=== PATIENT | male | born 1960 | race Caucasian/White ===

== ENCOUNTER 2017-10-18 19:53 | Inpatient (IN) | payer OTHER, SELFPAY ==
[2017-10-18 20:20] LABS: #Basophils 0.1 thou/uL (0.0-0.2); #Eosinphils 0.2 thou/uL (0.0-0.7); #Lymphocytes 2.8 thou/uL (1.20-3.40); #Monocytes 1.1 thou/uL (0.11-0.59); %Basophils 0.7 % (0.0-1.0); %Eosinophils 1.7 % (0.0-10.0); %Lymphocytes 20.9 % (21.0-51.0); %Neutrophils 68.6 % (42.0-75.0); Hemoglobin 15.9 g/dL (14.0-18.0); Mean Corpuscular HGB CONC 34.3 g/dL (32.0-36.0); Mean Corpuscular Hemoglobin 30.2 pg (27.0-31.0); Mean Platelet Volume 6.9 fL (7.4-10.4); Platelet Count 385 thou/uL (130-400); RBC Distribution Width 12.2 % (11.5-14.5); Red Blood Cell (RBC) Count 5.28 mill/uL (4.70-6.10); White Blood Cell (WBC) Count 13.1 thou/uL (4.8-10.8)
[2017-10-18 20:28] LABS: PTT 27.8 SEC (22.9-36.1); Prothrombin Time 13.3 SEC (12.0-14.7)
--- NOTE | 2017-10-18 20:40 | CT ---
CT OF THE BRAIN WITHOUT CONTRAST: 10/18/17 COMPARISON: None. HISTORY: Slurred speech for two days that is worse today. TECHNIQUE: Multiple contiguous axial images were obtained in a CT of the brain without contrast. FINDINGS: There are hypodensities in the left basal ganglia and right periventricular white matter. Other scatt ered hypodensities are also seen in the subcortical periventricular white matter. These may be second christiano to small vessel ischemic disease with small lacunar infarctions are also a possibility. No large confluent infarct is seen. There is no evidence of hydrocephalus, intracranial hemorrhage, or extra-a xial fluid collections. The calvarium and overlying soft tissues are unremarkable. The visualized paranasal sinuses and masto id air cells are well aerated. IMPRESSION: 1. Small vessel ischemic disease. 2. There are hypodensities in the periventricular white matter and left basal ganglia without si gnificant volume loss which could represent subacute lacunar infarctions. POS: [facility]
[2017-10-18 20:42] LABS: ALT (SGPT) 17 U/L (8-55); AST (SGOT) 16 U/L (5-34); Albumin 4.3 g/dL (3.5-5.0); Alkaline Phosphatase 143 U/L (40-150); Anion Gap 12 mmol/L (10-20); BUN (Urea Nitrogen) 6 mg/dL (8.4-25.7); Bilirubin, Total 0.5 mg/dL (0.2-1.2); Calc. Creatinine Clearance 0 mL/min (70-130); Calcium 9.7 mg/dL (7.8-10.44); Carbon Dioxide 27 mmol/L (22-29); Chloride 103 mmol/L (98-107); Estimated GFR-MDRD Greater than 90; Globulin 3.1 g/dL (2.4-3.5); Glucose 157 mg/dL (70-105); Potassium 3.4 mmol/L (3.5-5.1); Protein, Total 7.4 g/dL (6.0-8.3); Sodium 139 mmol/L (136-145)
[2017-10-18 20:47] LABS: CKMB 1.2 ng/mL (0-6.6); Troponin I Less than 0.010 ng/mL (< 0.028)
[2017-10-18] MEDS ORDERED: Acetaminophen 325 MG TAB PO PRN (23:20)
[2017-10-18] MEDS ORDERED: Ondansetron HCl/PF 4 MG/2 ML Vial IVP PRN (23:20)
[2017-10-19 00:13] LABS: Troponin I Less than 0.010 ng/mL (< 0.028)
[2017-10-19 00:31] VITALS: BMI 23.5
[2017-10-19 03:10] LABS: #Basophils 0.1 thou/uL (0.0-0.2); #Eosinphils 0.3 thou/uL (0.0-0.7); #Lymphocytes 2.6 thou/uL (1.20-3.40); #Monocytes 1.2 thou/uL (0.11-0.59); #Neutrophils 11.1 thou/uL (1.40-6.50); %Basophils 0.6 % (0.0-1.0); %Eosinophils 1.8 % (0.0-10.0); %Lymphocytes 16.8 % (21.0-51.0); %Monocytes 7.9 % (0.0-10.0); Hemoglobin 14.4 g/dL (14.0-18.0); Mean Corpuscular HGB CONC 35.5 g/dL (32.0-36.0); Mean Corpuscular Hemoglobin 31.1 pg (27.0-31.0); Mean Corpuscular Volume 87.5 fL (78.0-98.0); Mean Platelet Volume 6.6 fL (7.4-10.4); Platelet Count 354 thou/uL (130-400); RBC Distribution Width 12.1 % (11.5-14.5); Red Blood Cell (RBC) Count 4.62 mill/uL (4.70-6.10); White Blood Cell (WBC) Count 15.2 thou/uL (4.8-10.8)
[2017-10-19 03:28] LABS: Troponin I Less than 0.010 ng/mL (< 0.028)
[2017-10-19 03:45] LABS: Anion Gap 14 mmol/L (10-20); BUN (Urea Nitrogen) 6 mg/dL (8.4-25.7); Calc. Creatinine Clearance 121 mL/min (70-130); Calcium 9.3 mg/dL (7.8-10.44); Carbon Dioxide 26 mmol/L (22-29); Cardiac Risk 8.5 (Less than 4.5); Chloride 104 mmol/L (98-107); Cholesterol 204 mg/dl (< 200 Desired); Estimated GFR-MDRD Greater than 90; Glucose 120 mg/dL (70-105); HDL Cholesterol 24 mg/dL (>60 Neg Risk); LDL Cholesterol, Calculated 131 mg/dL; Potassium 3.2 mmol/L (3.5-5.1); Sodium 141 mmol/L (136-145); Triglycerides 247 mg/dL (Less than 150)
[2017-10-19] MEDS ORDERED: Potassium Chloride 20 MEQ TAB PO SCH (08:45)
[2017-10-19 09:00] LABS: Hemoglobin A1c 6.1 % (4.0-6.0)
[2017-10-19] MEDS ORDERED: Enoxaparin Sodium 40 MG/0.4 ML SYRINGE SC SCH (09:00)
[2017-10-19] MEDS ORDERED: Aspirin 325 mg Enteric Coated Tablet PO SCH (09:00)
--- NOTE | 2017-10-19 09:21 | MRI ---
MRI BRAIN: History: Slurred speech, TIA. Technique: Multiplanar, multisequence noncontrast enhanced MRI images were obtained of the brain. FINDINGS: Images demonstrate a 1.9 x 0.9 cm area of increased signal on diffusion weighted sequences with a dec reased signal on ADC maps. This area also demonstrates area of increased signal on the T2 and FLAIR w eighted sequences. This is compatible with a moderate sized left posterior limb internal capsule area of stroke. A tiny second area of stroke also seen in the lateral posterior limb of the right interna l capsule. These two areas are acute. There is also old areas of stroke in the left deep white matter of the frontal lobe just lateral to t he body of the caudate seen on image 17. Additional old areas of stroke also seen in the deep right f rontal lobe white matter. The vascular distributions are multiple. I am concerned about possible central source for the numerou s infarctions which are acute and old. IMPRESSION: 1. Multiple acute and more chronic bilateral intracranial areas of infarction as described above. POS: [facility]
--- NOTE | 2017-10-19 10:23 | ULT ---
CAROTID DOPPLER ULTRASOUND EVALUATION: 10/19/2017 HISTORY: The patient has a history of TIAs and strokes. TECHNIQUE: Multiple longitudinal and transverse images of the carotid arteries were obtained using a Multi-Hertz linear array transducer. Real-time, color-flow, and spectral wave-form Doppler analysis was used to evaluate the carotid arteries. FINDINGS: There is diffuse intimal thickening seen in the right and left common carotid arteries. CCA flow malachi ocities are fairly symmetric. The peak systolic in the right CCA measures 136/24 cm per second and t he left CCA is 142/21 cm per second. There are distal bilateral carotid artery atherosclerotic plaques, mild on the right, approximately 2 0%, and moderate on the left, approximately 40% to 50%, in the distal left CCA. There appears to be some irregularity in the distal left CCA plaque. Correlation with CT angiography may be of use to fu rther characterize. Flow velocities have not significantly increased in the internal carotid arteries bilaterally. Antegrade flow is seen in both vertebral arteries. IMPRESSION: Mild right distal common carotid artery and moderate left distal common carotid artery stenosis due t o calcified and noncalcified atherosclerotic plaques. POS: [facility]
[2017-10-19] MEDS: Enoxaparin Sodium 40 MG/0.4 ML SYRINGE SC SCH (10:43)
[2017-10-19] MEDS ORDERED: Clopidogrel Bisulfate 75 MG TAB PO SCH (11:00)
--- NOTE | 2017-10-19 11:15 | RAD ---
PORTABLE CHSET ONE VIEW: 10/19/2017 9:56 a.m. HISTORY: Chest pain. FINDINGS: The heart size is normal. The aorta is tortuous. The lungs are expanded without focal areas of cons olidation, pneumothoraces, or pleural effusions. IMPRESSION: No radiographic evidence of acute cardiopulmonary process. POS: [facility]
--- NOTE | 2017-10-19 20:04 | HP ---
CHIEF COMPLAINT: Slurred speech. HISTORY OF PRESENT ILLNESS: Patient is a very pleasant 57-year-old male with a history of CVA in 201 5 and hypertension, who presented to the hospital with slurred speech. The patient stated that initi ally his slurred speech started on Tuesday; however, he did not do anything about it. When he was bel sushil to his daughter on the phone over the weekend, his daughter thought that patient's speech appear ed to be a bit more slurred, so he called the patient's sister who came by just to visit him. She di d notice that he had significant amount of slurring of his speech. At that time, patient was brought into the hospital for further evaluation. The patient currently denies any nausea, vomiting or diff iculty swallowing; however, he does have a significant slurring of the speech. He initially had a CT brain that was done in the ER which indicated a small vessel ischemic disease. There are hypodensit ies in the periventricular white matter in the left basal ganglia with significant volume loss which could represent subacute lacunar infarct. The patient did state that he has been having elevated blo od pressures; however, due to insurance purposes, he is unable to see the doctor. PAST MEDICAL HISTORY: He has a history of hypertension and CVA. PAST SURGICAL HISTORY: He denies any surgical history. SOCIAL HISTORY: He smokes a pack a day. Denies any drugs or alcohol use. ALLERGIES: No known allergies. MEDICATIONS: He takes finasteride 5 mg daily, lisinopril 40 mg daily, metformin 500 mg q.24 hours, a tenolol 50 mg daily, aspirin 81 mg daily. FAMILY HISTORY: No history of heart attacks or strokes. PHYSICAL EXAMINATION: VITAL SIGNS: 99.1, 70, 16, 96% on room air, 179/94. GENERAL: He is awake, alert, and oriented x3. He does have some slurred speech. CARDIOVASCULAR: S1, S2 present. No murmurs, rubs or gallops. LUNGS: Clear to auscultation. No rhonchi or wheezes noted. NEUROLOGIC: Vascular yip, cranial nerves intact. He has got 5/5 upper extremity and 5/5 lower extr emity strength and sensation is intact; however, he does have some slurriness of speech. MUSCULOSKELETAL: No abnormalities noted. No lower extremity edema. SKIN: Intact. No lesions noted. ABDOMEN: Soft, nontender. Bowel sounds are present x2. LABORATORY DATA: Are as of following; WBC of 13.1, hemoglobin of 15.9, hematocrit of 46.5, platelets of 385. Chemistry: Sodium of 141, potassium of 3.2, BUN of 6, creatinine 0.77. His triglycerides were elevated at 247 and his cholesterol is 204. Troponin x1 was negative. ASSESSMENT AND PLAN: The patient is a very pleasant 57-year-old male who comes into the hospital wit h complaints of slurred speech. 1. Slurred speech, most likely either TIAs or most likely an acute stroke; however, the patient is o ut of the window. His symptoms started on Tuesday. Patient presents to the hospital today. CT head that was done in the ER indicated some hypodensities in the periventricular white matter in the left basal ganglia. We will get an MRI brain for further evaluation. We will also do carotids and echoca rdiogram. Patient's blood pressure is significantly elevated. I am not sure if this is at baseline or this is because of the stroke. We will continue to monitor. Patient is on aspirin at home. He w ill need Plavix. We will also consult Neurology and continue to monitor. 2. Hypertension. We will try that to lower his blood pressure too quickly. We will continue to mon itor. However, on discharge, we will adjust his blood pressure medications. Also, I will talk to [facility] to provide him resources so that he can follow up with primary care for based on his in come. 3. Deep venous thrombosis prophylaxis. We will put patient on SCDs.
[2017-10-19] MEDS: Atorvastatin Calcium 40 MG TAB PO SCH (21:25)
--- NOTE | 2017-10-20 05:15 | CON ---
DATE OF CONSULTATION: 10/19/2017 REFERRING PROVIDER: Dr. Britney Hussein. REASON FOR CONSULTATION: Stroke. HISTORY OF PRESENT ILLNESS: Mr. Douglas is a pleasant 57-year-old male who has been consulted for evaluation of stroke. History is obtained from patient as well as his family, who was present at bedside. Patient reports that he has history of stroke approximately 3 years ago, which resulted in left- sided weakness and slurred speech. He had fully recovered from that stroke. He notes that since last Tuesday, he has been having increasing weakness in both lower extremities as well as slurred speech, is also having difficulty with gait imbalance. He did not seek any medical attention, as he was not sure whether this was a new symptom or previous stroke symptoms. However, his daughter had visited him today and noted that his speech was more slurred, which prompted her to bring him into the [place] [facility]. He currently denies any headache, chest pain, palpitation, nausea, vomiting, numbness, tingling sensation. He denies lightheadedness or dizziness. PAST MEDICAL HISTORY: Significant for hypertension and prior history of stroke. PAST SURGICAL HISTORY: Not significant. SOCIAL HISTORY: He smokes 1 pack a day. He denies alcohol use or drug use. FAMILY HISTORY: Noncontributory. CURRENT MEDICATIONS: Please review MAR. ALLERGIES: No known drug allergies. REVIEW OF SYSTEMS: As mentioned above in the HPI, otherwise negative. PHYSICAL EXAMINATION: VITAL SIGNS: Blood pressure of 161/90, pulse of 74, temperature of 99.2, respirations of 16, O2 sats of 95% on room air. GENERAL: Well-developed, well-nourished male in no apparent distress. RESPIRATORY: Clear to auscultation bilaterally. CARDIOVASCULAR: Regular rate and rhythm. NEUROLOGIC: Mental status: Patient is alert, awake, oriented x3. Speech and language: Dysarthric speech noted. Cranial nerves: Pupils are 3 mm and reactive. Visual moya are intact. Extraocular muscle movements are intact. No nystagmus is noted. Face is symmetric. Tongue and uvula are midline. Motor exam showed normal tone and bulk with 5/5 strength in the left upper and left lower extremities. His strength in the right upper extremity is 5/5 and strength in the right lower extremity is 4/5. Sensory: Sensation appears intact to light touch. Deep tendon reflexes 2+ reflexes in both upper and lower extremities. Babinski: Plantar responses flexion bilaterally. Coordination intact to [id number] and finger tapping bilaterally. LABORATORY DATA: Reviewed, which included CBC, coag panel, CMP and lipid profile, which is significant for WBC of 15.2, potassium of 3.2, glucose of 141. Hemoglobin A1c of 6.1, total cholesterol of 204, LDL of 131, HDL of 24, and triglycerides of 247, otherwise unremarkable. IMAGING STUDIES: MRI brain without contrast was reviewed, which showed small multiple acute bilateral cerebral hemisphere ischemic infarct. IMPRESSION: 1. Multiple bilateral cerebral hemisphere ischemic infarct. 2. Hypertension. 3. Diabetes. 4. Hyperlipidemia. PLAN: Mr. Douglas is a pleasant 57-year-old male who presented with 3 to 4 day history of slurred speech, difficulty with gait imbalance, and weakness in lower extremities. He was found to have bilateral small acute cerebral hemisphere ischemic infarct. Given there is bilateral and concern that this may be cardioembolic in nature, I have reviewed the echocardiogram results, which showed ejection fraction of 55%-60% without any wall motion abnormality or intracardiac mass or thrombus. Given that the echocardiogram is normal, I would recommend obtaining transesophageal echocardiogram and would recommend consulting Dr. Carvajal to have possible Linq device placement done to evaluate for paroxysmal atrial fibrillation. I would recommend consulting PT, OT, speech therapy. I would recommend continuing on aspirin and Plavix 75 mg daily for secondary stroke prevention. I will also recommend continuing him on atorvastatin 40 mg at bedtime for elevated cholesterol. I have discussed with patient about secondary stroke risk factors and preventing them for future stroke. I have advised him to discontinue smoking. Thank you for consultation. ADAIR
[2017-10-20] MEDS: Enoxaparin Sodium 40 MG/0.4 ML SYRINGE SC SCH (09:27)
[2017-10-20] MEDS: Clopidogrel Bisulfate 75 MG TAB PO SCH (09:30)
[2017-10-20] MEDS: Aspirin 81 mg Enteric Coated Tablet PO SCH (09:30)
--- NOTE | 2017-10-20 13:24 | PDOC.PN ---
- Subjective Encounter Start Date: 10/20/17 Encounter Start Time: 09:30 Subjective: pt up in bed wants to go home - Objective Resuscitation Status: Resuscitation Status FULL:Full Resuscitation Vital Signs & Weight: Vital Signs (12 hours) Temp Pulse Resp BP Pulse Ox 10/20/17 11:35 97.7 F 62 16 163/87 H 96 10/20/17 07:38 98.5 F 63 16 181/99 H 95 10/20/17 06:30 186/86 H 10/20/17 04:00 97.7 F 59 L 18 180/88 H 96 Weight Admit Weight 173 lb 8 oz Weight 173 lb 8 oz I&O: 10/19/17 10/20/17 10/21/17 06:59 06:59 06:59 Intake Total 780 Balance 780 Result Diagrams: 10/19/17 02:58 10/19/17 02:57 Additional Labs: Accuchecks 10/20/17 10/20/17 10/19/17 10:51 05:55 20:18 POC Glucose 111 H 118 H 124 H 10/19/17 17:00 POC Glucose 141 H Phys Exam - Physical Examination Neck: no nodes, no JVD, supple, full ROM Respiratory: no wheezing, no rales, no rhonchi, wheezing present, clear to auscultation bilateral Cardiovascular: RRR, no significant murmur, no rub, gallop, irregular Gastrointestinal: soft, non-tender, no distention, positive bowel sounds Dx/Plan (1) CVA (cerebral vascular accident) Code(s): I63.9 - CEREBRAL INFARCTION, UNSPECIFIED Status: Acute (2) HTN (hypertension) Code(s): I10 - ESSENTIAL (PRIMARY) HYPERTENSION Status: Acute (3) Smoking Code(s): F17.200 - NICOTINE DEPENDENCE, UNSPECIFIED, UNCOMPLICATED Status: Acute - Plan pt's mri indicated bilateral stroke -: pt on asa/plavix/statin -: will get cardiology for CLEO possible cardiac in nature -: no afib on tele. * . Review of Systems - Review of Systems Respiratory: negative: Cough, Dry, Shortness of Breath, Hemoptysis, SOB with Excertion, Pleuritic Pain, Sputum, Wheezing Cardiovascular: negative: chest pain, palpitations, orthopnea, paroxysmal nocturnal dyspnea, edema, light headedness, other Gastrointestinal: negative: Nausea, Vomiting, Abdominal Pain, Diarrhea, Constipation, Melena, Hematochezia, Other Genitourinary: negative: Dysuria, Frequency, Incontinence, Hematuria, Retention , Other - Medications/Allergies Allergies/Adverse Reactions: Allergies Allergy/AdvReac Type Severity Reaction Status Date / Time No Known Drug Allergies Allergy Verified 10/19/17 19:48 Medications: Current Medications Acetaminophen (Tylenol) 650 mg PO Q4H PRN PRN Reason: Headache/Fever or Pain Aspirin (Ecotrin) 81 mg PO DAILY [facility] Last Admin: 10/20/17 09:30 Dose: 81 mg Atorvastatin Calcium (Lipitor) 40 mg PO HS [facility] Last Admin: 10/19/17 21:25 Dose: 40 mg Clopidogrel Bisulfate (Plavix) 75 mg PO DAILY [facility] Last Admin: 10/20/17 09:30 Dose: 75 mg Enoxaparin Sodium (Lovenox) 40 mg SC 0900 [facility] Last Admin: 10/20/17 09:27 Dose: Not Given Hydralazine HCl (Apresoline) 10 mg SLOW IVP Q4H PRN PRN Reason: BP > 160/100 Ondansetron HCl (Zofran) 4 mg IVP Q6H PRN PRN Reason: Nausea/Vomiting Sodium Chloride (Flush - Normal Saline) 10 ml IVF PRN PRN PRN Reason: Saline Flush
--- NOTE | 2017-10-20 16:57 | CON ---
DATE OF CONSULTATION: 10/20/2017 REASON FOR CONSULTATION: Stroke. HISTORY OF PRESENT ILLNESS: Mr. Douglas is a very pleasant 57-year-old white gentleman who comes to the hospital for slurred speech. He was found to have bilateral strokes on MRI. Cardiology is being consulted for consideration of a transesophageal echo as well as a link if nothing is found on the echo. He has a history of hypertension and previous strokes in the past. PAST MEDICAL HISTORY: 1. Hypertension. 2. CVAs. 3. BPH. 4. Type 2 diabetes. PAST SURGICAL HISTORY: None. SOCIAL HISTORY: Smokes a pack a day. No alcohol or drug use. OUTPATIENT MEDICATIONS: 1. Finasteride. 2. Lisinopril 40 mg b.i.d. 3. Metformin 500 mg a day. 4. Atenolol 50 mg b.i.d. 5. Aspirin 81 a day, ALLERGIES: No known drug allergies. FAMILY HISTORY: Noncontributory. REVIEW OF SYSTEMS: Twelve-point review of systems was done and is all negative unless stated in the history of present illness. PHYSICAL EXAMINATION: VITAL SIGNS: Temperature 98.4, pulse 66, respiration rate 14, satting at 97% on room air, blood pressure 154/83. GENERAL: Awake, alert, oriented x3, in no distress. HEENT: Normocephalic, atraumatic. NECK: Supple. LUNGS: Clear. CARDIOVASCULAR: S1, S2, no S3, S4, no murmurs. ABDOMEN: Soft, otherwise. EXTREMITIES: No edema. SKIN: Warm and dry. LABORATORY WORK: Reviewed. White count of 13, up to 15; hemoglobin of 14; hematocrit 40; platelet count 354. Coags were unremarkable. Chemistry with a sodium of 141, potassium 3.2, chloride 104, carbon dioxide 26, anion gap of 14, BUN of 6, creatinine 0.77, GFR greater than 90, glucose 120, calcium 9.3, hemoglobin A1c of 6.1. Troponin negative x2. Triglycerides were 247. Cholesterol total 204, LDL of 131, HDL of 24. Chest x-ray was reviewed. MRI of the brain was reviewed. Echocardiogram was reviewed, which showed an EF of 55%-60%, grade I diastolic dysfunction, mild MR, mild TR. ASSESSMENT AND PLAN: 1. Acute cerebrovascular accident. 2. Bilateral multiple acute infarctions, likely cardioembolic. 3. Hypertension. PLAN: Definitely a high likelihood of this being a cardioembolic event. We will perform a transesophageal echo tomorrow to make sure that his aortic root is unremarkable and there is no PFO or ASD causing him to have a paradoxical embolus. If this is negative I would probably start him on full anticoagulation if possible. Otherwise, I would think Mr. Douglas will have to prove compliance before starting him on full anticoagulation and may need to wait about a week before this happens given the amount of ischemia on his brain. Otherwise, we will plan on doing a transesophageal echo tomorrow and decide from there. Thank you for letting us participate in the care of your patient. We will follow. ADAIR
[2017-10-20] MEDS: Atorvastatin Calcium 40 MG TAB PO SCH (20:51)
[2017-10-20] MEDS ORDERED: Nicotine 21 MG PATCH TOP SCH (21:00)
[2017-10-20] MEDS: hydrALAZINE 20 MG/ML VIAL SLOW IVP PRN (21:25)
[2017-10-21] MEDS ORDERED: cloNIDine 0.1 MG TAB PO PRN (04:20)
[2017-10-21] MEDS ORDERED: Labetalol HCl 100 MG/20 ML VIAL SLOW IVP PRN (05:03)
[2017-10-21] MEDS ORDERED: Lidocaine 1% w/Epinephrine 1:100K 30 ML VIAL ONE (08:08)
[2017-10-21] MEDS ORDERED: Fentanyl 100 MCG/2 ML VIAL ONE (08:23)
[2017-10-21 11:47] VITALS: BP 172/92; TEMP 99.2
[2017-10-21] MEDS: hydrALAZINE 20 MG/ML VIAL SLOW IVP PRN (12:34)
[2017-10-21] MEDS: Clopidogrel Bisulfate 75 MG TAB PO SCH (15:35)
[2017-10-21] MEDS: Aspirin 81 mg Enteric Coated Tablet PO SCH (15:36)
[2017-10-21] MEDS: Enoxaparin Sodium 40 MG/0.4 ML SYRINGE SC SCH (15:44)
--- NOTE | 2017-10-21 15:49 | PDOC.CTH ---
Cardiology Progress Note - Subjective He had his CLEO and it showed no evidence of a shunt. Aortic root is normal sized without thrombus. Decending aorta with Grade 3 out of 5 atherosclerotic disease. - Objective Vital Signs Temp Pulse Resp BP Pulse Ox 10/21/17 12:34 61 10/21/17 11:46 99.2 F 61 16 172/92 H 98 10/21/17 07:41 98.3 F 72 16 162/73 H 98 10/21/17 06:11 145/69 H 10/21/17 05:25 57 L 10/21/17 04:00 98.7 F 57 L 18 184/95 H 95 Admit Weight 173 lb 8 oz Weight 173 lb 8 oz 10/20/17 10/21/17 10/22/17 06:59 06:59 06:59 Intake Total 780 0 Balance 780 0 - Physical Examination General/Neuro: alert & oriented x3, NAD Lungs: unlabored respirations Heart: RRR Abdomen: NT/ND Extremities: other: (no edema) - Telemetry Telemetry Rhythm: NSR - Labs Result Diagrams: 10/19/17 02:58 10/19/17 02:57 Troponin/CKMB CK-MB (CK-2) 1.2 ng/mL (0-6.6) 10/18/17 20:12 Troponin I Less than 0.010 ng/mL (< 0.028) 10/19/17 02:58 - Assessment/Plan 1. Acute CVA 2. Bilateral multiple acute infarctions, likely cardioembolic 3. HTN PLAN: - Given showering of thrombus likely this was a cardio embolic episode. Will plan on full antocoagulaiton to start in 1 week with Eliquis 5 mg BID. Will provide with a coupon for a free 30 day supply and if he follows up we can provide samples and can enroll him in a program to try to get the medication at little to no cost. - He may discharge home. - Follow up in 1 month.
--- NOTE | 2017-10-21 16:16 | ECHO ---
DATE OF SERVICE: 10/21/2017. PREPROCEDURE DIAGNOSIS: Acute CVA. The Anesthesiology department provided with sedation for the patient. Please see their notes for det ails. After adequate sedation was achieved, the transesophageal probe was inserted into the mouth and into esophagus without problems. Multiplanar views were then obtained. Left ventricle normal size and normal systolic function, EF estimated at 55-60%. No regional wall mo tion abnormalities. Left atrium is normal size. Right atrium is normal size. Right ventricle normal size with normal systolic function. Interatrial septum appears to be intact by both color Doppler and agitated saline study. Aortic valve is mildly sclerotic, but opens well, no stenosis or regurgitation. Mitral valve is structurally normal. There is mild MR, no stenosis. Tricuspid valve is structurally normal. There is mild TR. Pulmonary valve is structurally normal. There is mild PI. Ascending aorta is normal caliber with no evidence of thrombus or significant atherosclerotic disease , no aneurysmal dilatations or dissections. Descending thoracic aorta with grade III/V atherosclerotic disease not the cause of his stroke. CONCLUSIONS: 1. Normal systolic function, EF of 55-60%. 2. No mass or thrombus in any of the major cardiac structures including the left atrial appendage. 3. Intact interatrial septum by agitated saline study and color Doppler. 4. Grade III/V atherosclerotic disease of the descending thoracic aorta not the cause of his stroke. 5. No obvious reason for his CVA on this study.
--- NOTE | 2017-10-21 18:02 | DIS ---
DATE OF ADMISSION: 10/19/2017 DATE OF DISCHARGE: 10/21/2017 DISCHARGE DIAGNOSES: 1. Stroke. 2. Possible embolic stroke. 3. Hypertension. 4. Diabetes. 5. Smoking history. HOSPITAL COURSE: The patient is a very pleasant 57-year-old male who initially presented to the hosp ital with slurred speech which occurred 3 days prior to his admission. Patient underwent initially a brain CT did not show any acute abnormalities; however, he underwent a brain MRI which indicated mul tiple right and left, acute and more chronic bilateral intracranial areas of infarct. At this time, the patient underwent a CLEO and no cardiac source was noted. However, given his MRI findings of bila teral strokes, Cardiology recommended putting the patient on Eliquis. The patient also had an echoca rdiogram which was EF of 55-60%, mild mitral regurgitation, and mild tricuspid regurgitation. The pa dex also had a carotid Doppler which indicated mild right distal common carotid artery and moderate left distal common carotid artery stenosis due to calcification and noncalcified atherosclerotic shannan que. The patient will be discharged to home today. He does not have insurance. We will get him paty rizo PT, OT and speech. Also I will help him with his description. I have spoken extensively with t he patient's sisters at the bedside, explained to her that he needs to really stop smoking. We will try to give him a nicotine patch to see if that will help him. Also, the patient and the sister were advised that he will be on Eliquis starting next 1 week from now. In the interim, he will be on asp irin 325 and once he starts Eliquis, he will be on Eliquis and 81 mg of aspirin. Also, the patient a nd the sister were educated that if he does have dark stools or any kind of dark blood per rectum or if he cuts himself, he will have to be very careful while he is on Eliquis. Also, a coupon for Eliqu is has been provided for 30 days. The sister will have to do paperwork for funding to provide contin uing of this. DISCHARGE MEDICATIONS: Home medications are as the following: The patient is on metformin 500 mg b. i.d., lisinopril 40 mg daily, finasteride 5 mg daily, atorvastatin 40 mg at bedtime, aspirin [address] [facility] and Eliquis 5 mg b.i.d.; however, he will be taking Eliquis 325 for a week from now. PHYSICAL EXAMINATION: VITAL SIGNS: Temperature of 99.2, 61, 16, 98% on room air, 172/92. GENERAL: He is awake, alert, and oriented x3, does not appear in distress. CARDIOVASCULAR: S1, S2 present. No murmurs, rubs or gallops. ABDOMEN: Soft, nontender. Bowel sounds are present x2. EXTREMITIES: No edema. Pedal pulses are present x2.
[2017-10-22] MEDS ORDERED: metFORMIN XR 500 MG TAB PO SCH (08:00)
[2017-10-22] MEDS ORDERED: Finasteride 5 MG TAB PO SCH (09:00)
[2017-10-22] MEDS ORDERED: Lisinopril 20 MG TAB PO SCH (09:00)
[2017-10-27] MEDS ORDERED: Apixaban 5 MG TAB PO SCH (21:00)
== END 2017-10-21 16:30 | disposition home or self-care (01) | DRG 66 ==
LOC: ERS 19:53 → 2SE 22:20
PROVIDERS: ADMIT Hospitalist; ATTEND Hospitalist
DX: I63.40 Cerebral infarction due to embolism of unspecified cerebral artery (principal); I10 Essential (primary) hypertension; E11.9 Type 2 diabetes mellitus without complications; F17.210 Nicotine dependence, cigarettes, uncomplicated; I65.23 Occlusion and stenosis of bilateral carotid arteries; R47.81 Slurred speech; N40.0 Benign prostatic hyperplasia without lower urinary tract symptoms; Z79.899 Other long term (current) drug therapy; Z79.84 Long term (current) use of oral hypoglycemic drugs; Z79.82 Long term (current) use of aspirin; I63.9 Cerebral infarction, unspecified; E78.5 Hyperlipidemia, unspecified
CPT/HCPCS: 36415; 36416; 70450; 70551; 71045; 80048; 80053; 80061; 82553; 83036; 84484; 85025; 85610; 85730; 93005; 93306; 93312; 93880; A4216; G8978-GP-CK; G8979-GP-CI; G8987-GO-CK; G8988-GO-CI; G8999-GN-CJ; G9186-GN-CI; J0360; J1650; J2001; J3010

== ENCOUNTER 2017-11-04 08:09 | Inpatient (IN) | payer OTHER, SELFPAY ==
[2017-11-04 08:35] LABS: #Basophils 0.1 thou/uL (0.0-0.2); #Eosinphils 0.3 thou/uL (0.0-0.7); #Lymphocytes 1.7 thou/uL (1.20-3.40); #Monocytes 1.1 thou/uL (0.11-0.59); #Neutrophils 9.2 thou/uL (1.40-6.50); %Basophils 0.7 % (0.0-1.0); %Eosinophils 2.3 % (0.0-10.0); %Lymphocytes 14.2 % (21.0-51.0); %Monocytes 8.5 % (0.0-10.0); %Neutrophils 74.3 % (42.0-75.0); Hemoglobin 13.4 g/dL (14.0-18.0); Mean Corpuscular Hemoglobin 29.3 pg (27.0-31.0); Mean Corpuscular Volume 88.9 fL (78.0-98.0); Platelet Count 345 thou/uL (130-400); RBC Distribution Width 11.8 % (11.5-14.5); Red Blood Cell (RBC) Count 4.57 mill/uL (4.70-6.10); White Blood Cell (WBC) Count 12.3 thou/uL (4.8-10.8)
--- NOTE | 2017-11-04 08:47 | CT ---
CT HEAD NONCONTRAST: History: Altered mental status. FINDINGS: Exam became available for interpretation at 0825 hours. There is no evidence of acute intracranial hemorrhage or infarct. Old lacunar infarcts are apparent w ithin the basal ganglia and the left posterior periventricular white matter. Mild chronic ischemic sm all vessel disease. No mass effect or shift of midline structures. Visualized paranasal sinuses remai n well aerated. IMPRESSION: Chronic type findings. No acute intracranial abnormalities are demonstrated on noncontrast CT head. C T arteriogram is pending. Findings were called to Dr. Obregon in the Emergency Department at 0825 hours. Code CR POS: [facility]
[2017-11-04 08:57] LABS: ALT (SGPT) 20 U/L (8-55); AST (SGOT) 20 U/L (5-34); Albumin 3.6 g/dL (3.5-5.0); Alkaline Phosphatase 169 U/L (40-150); Anion Gap 13 mmol/L (10-20); BUN (Urea Nitrogen) 4 mg/dL (8.4-25.7); Bilirubin, Total 0.5 mg/dL (0.2-1.2); Calc. Creatinine Clearance 0 mL/min (70-130); Calcium 8.7 mg/dL (7.8-10.44); Carbon Dioxide 23 mmol/L (22-29); Chloride 106 mmol/L (98-107); Estimated GFR-MDRD Greater than 90; Globulin 2.4 g/dL (2.4-3.5); Glucose 128 mg/dL (70-105); Potassium 3.7 mmol/L (3.5-5.1); Sodium 138 mmol/L (136-145)
[2017-11-04 08:58] LABS: CKMB 0.8 ng/mL (0-6.6); Troponin I Less than 0.010 ng/mL (< 0.028)
[2017-11-04 09:04] LABS: INR-International Normal Ratio 1.4; Prothrombin Time 16.8 SEC (12.0-14.7)
[2017-11-04] MEDS ORDERED: hydrALAZINE 20 MG/ML VIAL SLOW IVP SCH (10:00)
[2017-11-04] MEDS ORDERED: ISOVUE-370 76%-LOCM 1 ML ONE (10:30)
[2017-11-04 10:34] LABS: Bilirubin Negative (Negative); Blood, Urine Trace (Negative); Clarity CLEAR (Clear); Glucose, Urine (Dipstick) Negative (Negative); Leukocyte Small (Negative); Nitrite Negative (Negative); Protein, Urine (Dipstick) Negative (Neg-Trace)
[2017-11-04 10:35] LABS: Bacteria/HPF 2+ HPF (None Seen); Hyaline Casts/LPF 0-3 HYALINE CAST LPF (0-3 Hyaline); Pathc Cast-AUWi Flag 0.14 (0-2.49); RBC/HPF 0-3 HPF (0-3); Squamous Epithelial None Seen HPF (0-3)
[2017-11-04 10:43] LABS: Amphetamine Not Detected (NotDetected); Barbiturates Screen Not Detected (NotDetected); Benzodiazepine Screen Not Detected (NotDetected); Cocaine Metabolite Screen Not Detected (NotDetected); Medtox Control Line Valid? VALID (VALID); Medtox Reader # READER 1; Methadone Not Detected (NotDetected); Methamphetamine Not Detected (NotDetected); Opiate Screen Not Detected (NotDetected); Oxycodone Screen Not Detected (NotDetected); Phencyclidine (PCP) Not Detected (NotDetected); THC/Cannabinoid Screen Not Detected (NotDetected); Tricyclic Screen Not Detected (NotDetected)
[2017-11-04] MEDS ORDERED: Ondansetron ODT 4 MG TAB SL PRN (11:31)
[2017-11-04] MEDS ORDERED: Ondansetron HCl/PF 4 MG/2 ML Vial IVP PRN (11:31)
[2017-11-04] MEDS ORDERED: Acetaminophen 325 MG TAB PO PRN ×2 (11:31→11:42)
[2017-11-04] MEDS ORDERED: hydrALAZINE 20 MG/ML VIAL SLOW IVP PRN (11:31)
[2017-11-04] MEDS ORDERED: Milk Of Magnesia 30 ML UDCUP PO PRN (11:42)
[2017-11-04] MEDS ORDERED: Senokot 8.6 MG TAB PO PRN (11:42)
[2017-11-04] MEDS ORDERED: HYDROcodone/Acetaminophen 5/325 mg Tablet PO PRN (11:42)
[2017-11-04] MEDS ORDERED: Artificial Tear Sol 15 ML BOT EA EYE PRN (11:42)
[2017-11-04] MEDS ORDERED: Loperamide HCl 2 MG CAP PO PRN (11:42)
[2017-11-04] MEDS ORDERED: Zolpidem Tartrate 5 MG TAB PO PRN (11:42)
[2017-11-04] MEDS ORDERED: Loratadine 10 MG TAB PO PRN (11:42)
[2017-11-04] MEDS ORDERED: Diabetic Tussin 200 MG/10 ML UDCUP PO PRN (11:42)
[2017-11-04] MEDS ORDERED: Sodium Chloride 0.65% Nasal 44 ML BOT EA NARE PRN (11:42)
[2017-11-04] MEDS ORDERED: Mag-Al 1200 mg/1200 mg/30 ML UDCUP PO PRN (11:42)
[2017-11-04] MEDS ORDERED: Chloraseptic Spray 180 ml Bottle PO PRN (11:42)
[2017-11-04] MEDS ORDERED: Eucerin (Mineral Oil/Petrolatum,White) 30 gm Jar TOP PRN (11:42)
[2017-11-04] MEDS ORDERED: Ondansetron ODT 4 MG TAB PO PRN (11:42)
[2017-11-04] MEDS ORDERED: Nicotine 21 MG PATCH TD PRN (12:25)
--- NOTE | 2017-11-04 12:54 | HP ---
PRIMARY CARE PHYSICIAN: [facility] call admission. REASON FOR ADMISSION: CVA. HISTORY OF PRESENT ILLNESS: A 57-year-old male who lives by himself in a trailer. He was not feelin g good last night when he went to bed. He was last seen normal before going to bed. This morning wh en he woke up, the patient was having difficulty talking. He was having left-sided facial droop and left arm weakness. Patient tried to call her daughter and she found that his speech was slurred and that is why her family member went to see him and he was found on the floor. He was not able to walk . He was not able to talk and that is why they called paramedics and subsequently paramedics brought him to the emergency room. As per family member, patient was admitted in the hospital on 10/18/2017 . The patient was recovering from that stroke and all the symptoms are pretty much new per family me mber. Patient was already taking Eliquis therapy. In the emergency room, patient had slurred speech . He had a left upper extremity weakness. The patient was not a candidate for any kind of TPA or in tervention. On admission, he was hypertensive. He was given a dose of labetalol. In the emergency room, the patient had CT brain which did not show any acute process. CT angiography was also not [facility] for any major vessel occlusion. Subsequently, we decided to keep this patient in the hospital f or further evaluation and treatment. REVIEW OF SYSTEMS: The following complete review of systems was negative, unless otherwise mentioned in the HPI or below: Constitutional: Weight loss or gain, ability to conduct usual activities. S kin: Rash, itching. Eyes: Double vision, pain. ENT/Mouth: Nose bleeding, neck stiffness, pain, t enderness. Cardiovascular: Palpitations, dyspnea on exertion, orthopnea. Respiratory: Shortness o f breath, wheezing, cough, hemoptysis, fever or night sweats. Gastrointestinal: Poor appetite, abdo nena pain, heartburn, nausea, vomiting, constipation, or diarrhea. Genitourinary: Urgency, frequen cy, dysuria, nocturia. Musculoskeletal: Pain, swelling. Neurologic/Psychiatric: Anxiety, depressi on. Allergy/Immunologic: Skin rash, bleeding tendency. Please see my HPI for pertinent positive and negative. All other review of systems reviewed and nega tive except as mentioned in the HPI. ALLERGIES: No known drug allergy. CURRENT HOME MEDICATIONS: Aspirin 81 mg p.o. daily, lisinopril 5 mg twice daily, Proscar 5 mg p.o. d aily, Eliquis 5 mg p.o. b.i.d., and Lipitor 40 mg p.o. at bedtime, nicotine patch as needed. PAST MEDICAL HISTORY: History of CVA x2 in 2014 and 2018 in October, hypertension, diabetes type 2 , dyslipidemia, tobacco abuse disorder, medication noncompliance. PAST SURGICAL HISTORY: Reviewed and negative. PAST PSYCHIATRIC HISTORY: Reviewed and negative. SOCIAL HISTORY: Patient lives by himself in a trailer. He has no insurance. He currently smokes ab out half pack per day. He previously dipped tobacco, but he stopped dipping tobacco, but he is still smoking. He denies any alcohol abuse. He denies any other illicit drug abuse. FAMILY HISTORY: No strong family history of premature coronary artery disease, stroke or cancer. EMERGENCY ROOM COURSE: Patient was given hydralazine. PHYSICAL EXAMINATION: VITAL SIGNS: On arrival, blood pressure maximum recorded 222/104, pulse 71, respiratory rate 14, tem perature 98.6, saturation 97% on room air, weight 78.7 kilograms. GENERAL: Patient is currently alert, awake. Follows simple command, dysarthria noted. HEAD: Normocephalic, atraumatic. EYES: Pupils round, reactive to light. Extraocular muscle intact. ENT: Oropharynx within normal limits. Moist mucous membranes, no oral lesion, no pharyngeal erythem a, no exudate. NECK: Supple, no JVD, no thyromegaly, no carotid bruit, no jugular venous distention. LUNGS: Clear to auscultation without any rhonchi or rales. CARDIAC: S1, S2 regular. No murmur, no gallop, no rub. ABDOMEN: Soft, bowel sounds present, nontender, nondistended. No organomegaly, no mass, no suprapub ic tenderness. BACK: Unremarkable, no CVA tenderness. EXTREMITIES: Upper extremity: Passive movements of all joints are normal. Lower extremities: No e michel. Good distal pulsation. SKIN: No skin rash. HEMATOLOGICAL: No lymphadenopathy. PSYCHIATRIC: Normal affect. NEUROLOGIC: The patient is alert, oriented x3. Speech is slurred speech. Cranial nerves II-XII int act. Motor: The patient does have pronator drip on the left side. Right side movement is normal in both upper and lower extremity. Left lower extremity within normal limits. No cerebellar sign. Pl esperanza bilateral flexor. SIGNIFICANT LABORATORY DATA: CT brain based on my review, no acute bleeding or intracranial process. CT angiography showing no large vessel occlusion. CBC: WBC 12.3, hemoglobin 13.4, platelet 345. BMP: Sodium 138, potassium 3.7, chloride 106, carbon dioxide 23, anion gap 13, BUN 4, creatinine 0.8 0, glucose 128, calcium 8.7. LFT: AST 20, ALT 20, alkaline phosphatase 169, albumin 3.6, CK-MB 0.8, troponin I less than 0.010. INR 1.4. Urine drug screen negative. Urinalysis: Leukocyte esterase small, with +2 bacteria. ASSESSMENT AND PLAN: 1. Acute cerebrovascular accident. Patient has a pronator drip on the left upper extremity. He has slurred speech. He also had recent cerebrovascular accident. Current CT brain and CT angiography d oes not show any acute process. He has late presentation and he is not a candidate for any kind of i ntervention. The patient will be admitted to stroke floor, neuro check every 4 hourly. NIH evaluati on frequently. Continue aspirin 325 mg p.o. daily, Lipitor 40 mg p.o. at bedtime. Check lipid profi le and homocysteine level and RPR tomorrow. Telemetry monitoring. We will obtain MRI brain and echo cardiography as a part of stroke workup. 2. Hypertensive urgency. We will keep systolic blood pressure around 180s. Continue hydralazine an d labetalol p.r.n. basis for high blood pressure. 3. Dyslipidemia. Check lipid profile and start Lipitor 40 mg p.o. at bedtime. 4. Benign enlargement of prostate. Continue Proscar 5 mg p.o. daily. 5. Tobacco abuse disorder. Smoking cessation counseling given. Healthy lifestyle measures discusse d with the patient. We will provide nicotine patch as needed basis. 6. Urinary tract infection. We will send urine culture and start Rocephin 1 gram q.24 hours. 7. Deep venous thrombosis prophylaxis. At this point, once we verify his home medication regarding Eliquis, we will continue the Lovenox 40 mg subcu daily. After verification of his home medication, we will change to Eliquis therapy, which he was taking before. 8. Gastrointestinal prophylaxis, Pepcid 20 mg p.o. b.i.d. 9. Code status: The patient is FULL CODE. Patient's daughter, Tracy, her phone number is , his power of personal injury attorney. Plan of care discussed with the patient and his family member at bedside in the emergency room.
[2017-11-04] MEDS: cefTRIAXone\\ROCEPHIN 1 GM in Sodium Chloride 0.9% 100 ML IVPB SCH (14:42)
[2017-11-04] MEDS: Labetalol HCl 100 MG/20 ML VIAL SLOW IVP PRN ×2 (15:47→23:57)
[2017-11-04] MEDS ORDERED: Acetaminophen 1,000 MG in Premix Bag 1 BAG IVPB SCH (20:15)
[2017-11-04] MEDS: Famotidine 20 MG TAB PO SCH (20:24)
[2017-11-04] MEDS: hydrALAZINE 20 MG/ML VIAL SLOW IVP PRN (20:53)
[2017-11-04] MEDS ORDERED: Atorvastatin Calcium 40 MG TAB PO SCH (21:00)
[2017-11-05 04:09] LABS: #Basophils 0.1 thou/uL (0.0-0.2); #Eosinphils 0.2 thou/uL (0.0-0.7); #Lymphocytes 2.3 thou/uL (1.20-3.40); #Monocytes 1.1 thou/uL (0.11-0.59); #Neutrophils 10.2 thou/uL (1.40-6.50); %Basophils 0.5 % (0.0-1.0); %Eosinophils 1.5 % (0.0-10.0); %Lymphocytes 16.5 % (21.0-51.0); %Monocytes 7.7 % (0.0-10.0); %Neutrophils 73.8 % (42.0-75.0); Hemoglobin 14.4 g/dL (14.0-18.0); Mean Corpuscular HGB CONC 33.6 g/dL (32.0-36.0); Mean Corpuscular Hemoglobin 29.6 pg (27.0-31.0); Mean Corpuscular Volume 88.1 fL (78.0-98.0); Mean Platelet Volume 7.1 fL (7.4-10.4); Platelet Count 380 thou/uL (130-400); RBC Distribution Width 11.6 % (11.5-14.5); Red Blood Cell (RBC) Count 4.88 mill/uL (4.70-6.10); White Blood Cell (WBC) Count 13.9 thou/uL (4.8-10.8)
[2017-11-05 04:24] LABS: Anion Gap 14 mmol/L (10-20); BUN (Urea Nitrogen) 7 mg/dL (8.4-25.7); Calc. Creatinine Clearance 117 mL/min (70-130); Calcium 9.7 mg/dL (7.8-10.44); Carbon Dioxide 26 mmol/L (22-29); Cardiac Risk 4.1 (Less than 4.5); Chloride 105 mmol/L (98-107); Cholesterol 94 mg/dl (< 200 Desired); Estimated GFR-MDRD Greater than 90; Glucose 143 mg/dL (70-105); HDL Cholesterol 23 mg/dL (>60 Neg Risk); LDL Cholesterol, Calculated 49 mg/dL; Potassium 3.3 mmol/L (3.5-5.1); Sodium 142 mmol/L (136-145); Triglycerides 108 mg/dL (Less than 150)
[2017-11-05 04:41] LABS: Syphilis Antibody Nonreactive (Nonreactive); Syphilis Antibody Index 0.07 S/CO (<1.00 Non-Reactive)
[2017-11-05 07:21] LABS: Hemoglobin A1c 6.1 % (4.0-6.0)
[2017-11-05] MEDS ORDERED: HumaLOG 300 UNITS/3 ML VIAL SC PRN (07:21)
[2017-11-05] MEDS ORDERED: Dextrose 5% in Water 1,000 ML IV PRN (07:21)
[2017-11-05] MEDS ORDERED: Dextrose 50% Abboject 50 ML SYRINGE SLOW IVP PRN (07:21)
[2017-11-05] MEDS ORDERED: Carvedilol 6.25 MG TAB PO SCH (08:00)
[2017-11-05] MEDS ORDERED: Aspirin 325 MG TAB PO SCH (09:00)
[2017-11-05] MEDS ORDERED: Apixaban 5 MG TAB PO SCH (09:00)
[2017-11-05] MEDS ORDERED: Lisinopril 20 MG TAB PO SCH (09:00)
[2017-11-05] MEDS ORDERED: Aspirin 81 mg Enteric Coated Tablet PO SCH (09:00)
[2017-11-05] MEDS ORDERED: Non-Formulary Item 1 EACH (Lisinopril [Lisinopril] 40 MG) PO SCH (09:00)
[2017-11-05] MEDS ORDERED: Enoxaparin Sodium 40 MG/0.4 ML SYRINGE SC SCH (09:00)
[2017-11-05] MEDS ORDERED: Amlodipine 10 MG TAB PO SCH (09:00)
[2017-11-05] MEDS ORDERED: Finasteride 5 MG TAB PO SCH (09:00)
--- NOTE | 2017-11-05 09:04 | CON ---
DATE OF CONSULTATION: 11/04/2017 NEUROLOGY FOLLOWUP CONSULTING PHYSICIAN: Hospitalist Service. HISTORY OF PRESENT ILLNESS: Mr. Douglas was recently admitted and evaluated by Dr. Dillard for acute neurologic changes. MRI of the brain revealed evidence of bilateral areas of acute ischemia involvin g the deep white matter regions. His echocardiogram and transesophageal echo did not reveal evidence of cardioembolic source. His carotid Dopplers showed some mild stenosis bilaterally in the 20%-50% range. He was discharged on Eliquis and aspirin along with a statin. He came back in yesterday due to complaints of increased weakness in his legs that prevented him from walking. His repeat CT scan of the brain did not show any evidence of hemorrhage or definite acute ischemic injury. PHYSICAL EXAMINATION: Vital signs have been stable being mildly hypertensive. Patient is otherwise aphasic at this point, but was able to nod to questions. His exam at this point shows a subtle right facial droop. He has expressive aphasia. He followed commands appropriately. He had good side stitcher str ength bilaterally. He had antigravity strength in both legs. Plantar responses were equivocal. LABORATORY STUDIES: Show unremarkable CBC. Coag study, serum chemistry, toxicology screen, urinalys is showed 11-20 white cells with trace blood and 2+ bacteria. This gentleman has developed some new neurologic symptoms despite maximum medical therapy with Eliqui s and aspirin. There does not appear to be a hemorrhage; therefore I suspect he has had a new ischem ic event, albeit it appears to be fairly mild. Agree with repeating an MRI of the brain, but there d oes not appear to be anything that we will be able to offer the gentleman otherwise.
[2017-11-05] MEDS: hydrALAZINE 20 MG/ML VIAL SLOW IVP PRN (09:15)
[2017-11-05] MEDS: Labetalol HCl 100 MG/20 ML VIAL SLOW IVP PRN ×5 (09:29→21:18)
--- NOTE | 2017-11-05 09:41 | PDOC.PN ---
- Subjective Encounter Start Date: 11/05/17 Encounter Start Time: 06:40 pt has slurred speech unchanged from yesterday, he has more weakness on left UE , he is able to lift left leg I have seen this pt again when cresencio franco was called, family present bedside he has high BP, but overall unchanged from this morning, - Objective Resuscitation Status: Resuscitation Status FULL:Full Resuscitation MAR Reviewed: Yes Vital Signs & Weight: Vital Signs (12 hours) Temp Pulse Resp BP BP Pulse Ox 11/05/17 09:15 67 11/05/17 08:00 98.7 F 67 14 215/96 H 98 11/05/17 04:00 97.6 F 67 16 179/76 H 97 11/05/17 00:00 98.2 F 89 14 208/108 H 97 11/04/17 23:57 79 190/89 H 11/04/17 21:55 178/77 H Weight Weight 176 lb 6.4 oz I&O: 11/04/17 11/05/17 11/06/17 06:59 06:59 06:59 Output Total 200 Balance -200 Result Diagrams: 11/05/17 03:39 11/05/17 03:38 Additional Labs: Accuchecks 11/05/17 09:05 POC Glucose 135 H Radiology Reviewed by me: Yes (CT brain done this morning and reviewed) EKG Reviewed by me: Yes (nsr) Phys Exam - Physical Examination Constitutional: NAD HEENT: PERRLA, moist MMs, sclera anicteric Neck: no JVD, supple Respiratory: no wheezing, no rales, no rhonchi Cardiovascular: RRR, no significant murmur, no rub Gastrointestinal: soft, non-tender, no distention, positive bowel sounds Musculoskeletal: no edema, pulses present left UE 1/5, left leg 3/5, right side normal, expressive aphasia Psychiatric: normal affect, A&O x 3 Skin: no rash, normal turgor Dx/Plan (1) Acute CVA (cerebrovascular accident) Code(s): I63.9 - CEREBRAL INFARCTION, UNSPECIFIED Status: Acute (2) Asymptomatic bacteriuria Code(s): R82.71 - BACTERIURIA Status: Acute (3) Hypertensive urgency Code(s): I16.0 - HYPERTENSIVE URGENCY Status: Acute (4) Hypokalemia Code(s): E87.6 - HYPOKALEMIA Status: Acute (5) Diabetes type 2, controlled Code(s): E11.9 - TYPE 2 DIABETES MELLITUS WITHOUT COMPLICATIONS Status: Chronic (6) Dyslipidemia Code(s): E78.5 - HYPERLIPIDEMIA, UNSPECIFIED Status: Chronic (7) Tobacco abuse Code(s): Z72.0 - TOBACCO USE Status: Chronic - Plan cont current plan of care, plan discussed w/ family, continue antibiotics, PT/OT , social service liaison, DVT proph w/lovenox * will keep SBP 160-180 * pt has evolving stroke * he is not a candidate for any intervention at this time * neurology saw this pt this morning * continue his home medication * continue elliquis * discussed with family * he will need rehab * stroke team evaluation * continue rocephin. * replace potassium * hyperglycemia protocol treatment * start diet after speech therapy * add amlodipine for BP, add coreg for BP Review of Systems - Review of Systems Constitutional: negative: fever, chills, sweats, weakness, malaise, other Eyes: negative: Pain, Vision Change, Conjunctivae Inflammation, Eyelid Inflammation, Redness, Other ENT: negative: Ear Pain, Ear Discharge, Nose Pain, Nose Discharge, Nose Congestion, Mouth Pain, Mouth Swelling, Throat Pain, Throat Swelling, Other Respiratory: negative: Cough, Dry, Shortness of Breath, Hemoptysis, SOB with Excertion, Pleuritic Pain, Sputum, Wheezing Cardiovascular: negative: chest pain, palpitations, orthopnea, paroxysmal nocturnal dyspnea, edema, light headedness, other Gastrointestinal: negative: Nausea, Vomiting, Abdominal Pain, Diarrhea, Constipation, Melena, Hematochezia, Other Genitourinary: negative: Dysuria, Frequency, Incontinence, Hematuria, Retention , Other Musculoskeletal: negative: Neck Pain, Shoulder Pain, Arm Pain, Back Pain, Hand Pain, Leg Pain, Foot Pain, Other Skin: negative: Rash, Lesions, Marcelo, Bruising, Other Neurological: Weakness, Change in Speech. negative: Numbness, Incoordination, Confusion, Seizures, Other - Medications/Allergies Allergies/Adverse Reactions: Allergies Allergy/AdvReac Type Severity Reaction Status Date / Time No Known Drug Allergies Allergy Verified 11/04/17 21:12 Medications: Current Medications Acetaminophen (Tylenol) 650 mg PO Q4H PRN PRN Reason: Headache/Fever or Pain Hydrocodone Bitart/Acetaminophen ([place] 5/325) 1 tab PO Q4H PRN PRN Reason: Moderate Pain (4-6) Al Hydroxide/Mg Hydroxide (Maalox) 30 ml PO Q6H PRN PRN Reason: Heartburn or Indigestion Amlodipine Besylate (Norvasc) 10 mg PO DAILY [facility] Apixaban (Eliquis) 5 mg PO BID [facility] Artificial Tears (Tears Renewed 15ml Bottle) 0 drop EA EYE PRN PRN PRN Reason: Dry Eyes Aspirin (Ecotrin) 81 mg PO DAILY [facility] Atorvastatin Calcium (Lipitor) 40 mg PO HS [facility] Last Admin: 11/04/17 20:24 Dose: Not Given Carvedilol (Coreg) 6.25 mg PO BID[facility] Dextrose/Water (Dextrose 50%) 25 gm SLOW IVP PRN PRN PRN Reason: Hypoglycemia Famotidine (Pepcid) 20 mg PO BID [facility] Last Admin: 11/04/17 20:24 Dose: Not Given Finasteride (Proscar) 5 mg PO DAILY [facility] Glucagon (Glucagon) 1 mg IM PRN PRN PRN Reason: Hypoglycemia Guaifenesin (Robitussin Sf) 200 mg PO Q4H PRN PRN Reason: Cough Hydralazine HCl (Apresoline) 10 mg SLOW IVP Q2H PRN PRN Reason: Systolic BP > 180 Last Admin: 11/05/17 09:15 Dose: 10 mg Ceftriaxone Sodium 1 gm/ (Sodium Chloride) 100 mls @ 200 mls/hr IVPB Q24HR [facility] Last Admin: 11/04/17 14:42 Dose: 100 mls Dextrose/Water (D5w) 1,000 mls @ 0 mls/hr IV .Q0M PRN PRN Reason: Hypoglycemia Insulin Human Lispro (Humalog) 0 units SC .MODERATE SLIDING SC PRN PRN Reason: Moderate Correctional Scale Insulin Human Lispro (Humalog) 0 units SC .BEDTIME SLIDING SC PRN PRN Reason: Bedtime Correctional Scale Labetalol HCl (Normodyne) 10 mg SLOW IVP Q2H PRN PRN Reason: Systolic BP > 180 Last Admin: 11/04/17 23:57 Dose: 10 mg Lisinopril (Zestril) 40 mg PO DAILY [facility] Loperamide HCl (Imodium) 2 mg PO PRN PRN PRN Reason: Diarrhea/Loose Stools Loratadine (Claritin) 10 mg PO DAILYPRN PRN PRN Reason: Sinus Symptoms Magnesium Hydroxide (Milk Of Magnesium) 30 ml PO DAILYPRN PRN PRN Reason: Constipation Mineral Oil/White Petrolatum (Eucerin Cream) 0 gm TOP BIDPRN PRN PRN Reason: Dry Skin Nicotine (Nicoderm Patch) 21 mg TD DAILY PRN PRN Reason: Smoking Cessation Ondansetron HCl (Zofran Odt) 4 mg PO Q6H PRN PRN Reason: Nausea/Vomiting Ondansetron HCl (Zofran) 4 mg IVP Q6H PRN PRN Reason: Nausea/Vomiting Phenol (Chloraseptic [place] 180 Ml Bot) 0 ml PO PRN PRN PRN Reason: Sore Throat Potassium Chloride (K-Dur) 40 meq PO ONE HENNA Senna (Senokot) 2 tab PO HSPRN PRN PRN Reason: Constipation Sodium Chloride ([place] Nasal [place] 0.65%) 0 ml EA NARE QIDPRN PRN PRN Reason: Nasal Congestion Sodium Chloride (Flush - Normal Saline) 10 ml IVF PRN PRN PRN Reason: Saline Flush Zolpidem Tartrate (Ambien) 5 mg PO HSPRN PRN PRN Reason: Insomnia
[2017-11-05] MEDS ORDERED: Potassium Chloride 20 MEQ TAB PO SCH (09:45)
--- NOTE | 2017-11-05 09:55 | CT ---
CT BRAIN WITHOUT CONTRAST: Date: 11-05-17 Comparison: 11-04-17 FINDINGS: Noncontrast enhanced CT images of the brain demonstrates old areas of strokes seen in the right and l eft deep white matter and in the left centrum semiovale. No evidence of acute intracranial masses or lesions seen. Old area of stroke also seen in the right thalamus. IMPRESSION: Bilateral old areas of small strokes. No significant interval change is seen since the previous inocencio rison exam. Findings discussed with Dr. Deutsch at 9:24 a.m. on 11-05-17. Code CR POS: [facility]
--- NOTE | 2017-11-05 12:44 | MRI ---
MRI BRAIN WITHOUT CONTRAST: HISTORY: TIA. FINDINGS: There are multiple foci of restricted diffusion noted in the cerebellar hemispheres bilaterally, incl uding the right basal ganglia and the bilateral periventricular white matter. No hemorrhage is noted . The ventricular size is appropriate, and the basilar cisterns are patent. IMPRESSION: Multiple acute bilateral hemispheric infarctions. POS: [facility]
[2017-11-05] MEDS ORDERED: Loratadine 10 MG TAB PER TUBE PRN (15:30)
[2017-11-05] MEDS ORDERED: Diabetic Tussin 200 MG/10 ML UDCUP PER TUBE PRN (15:30)
[2017-11-05] MEDS ORDERED: Ondansetron ODT 4 MG TAB PER TUBE PRN (15:30)
[2017-11-05] MEDS ORDERED: Zolpidem Tartrate 5 MG TAB PER TUBE PRN (15:30)
[2017-11-05] MEDS ORDERED: Loperamide HCl 2 MG CAP PER TUBE PRN (15:30)
[2017-11-05] MEDS ORDERED: Mag-Al 1200 mg/1200 mg/30 ML UDCUP PER TUBE PRN (15:30)
--- NOTE | 2017-11-05 15:36 | RAD ---
ABDOMEN ONE VIEW: HISTORY: Dobhoff tube placement. FINDINGS: The feeding tube enters the stomach and coils superiorly, with the tip directed into the gastric card ia. The bowel gas pattern is unremarkable. POS: [facility]
[2017-11-05] MEDS: cefTRIAXone\\ROCEPHIN 1 GM in Sodium Chloride 0.9% 100 ML IVPB SCH (16:13)
[2017-11-05] MEDS ORDERED: Finasteride 5 MG TAB FS SCH (16:15)
[2017-11-05] MEDS ORDERED: Aspirin 81 mg Enteric Coated Tablet PER TUBE SCH (16:15)
[2017-11-05] MEDS ORDERED: Amlodipine 10 MG TAB PER TUBE SCH (16:15)
[2017-11-05] MEDS ORDERED: Lisinopril 20 MG TAB PER TUBE SCH (16:15)
[2017-11-05] MEDS: HYDROcodone/Acetaminophen 5/325 mg Tablet PER TUBE PRN (16:44)
[2017-11-05] MEDS: Famotidine 20 MG TAB PO SCH (17:14)
[2017-11-05] MEDS: Carvedilol 6.25 MG TAB PER TUBE SCH (18:51)
[2017-11-05] MEDS: Apixaban 5 MG TAB PER TUBE SCH (21:18)
[2017-11-05] MEDS: Famotidine 20 MG TAB PER TUBE SCH (21:18)
[2017-11-05] MEDS: Atorvastatin Calcium 40 MG TAB PER TUBE SCH (21:18)
--- NOTE | 2017-11-05 22:20 | RAD ---
RADIOGRAPH ABDOMEN 1 VIEW: 11/05/17 at 9:43 p.m. HISTORY: Status post Dobhoff tube manipulation in 57-year-old male. COMPARISON: 11/05/17, 3:01 p.m. FINDINGS: The Dobhoff feeding tube is still curled in the left upper quadrant of the abdomen, but in a differen t orientation. Whereas previously it was looped in the fundus, it now loops in the proximal greater c urvature, then doubles back on itself with distal tip at the fundus. IMPRESSION: Dobhoff feeding tube is still in the proximal stomach. POS: [facility]
[2017-11-06] MEDS: Labetalol HCl 100 MG/20 ML VIAL SLOW IVP PRN ×2 (03:44→05:47)
--- NOTE | 2017-11-06 07:31 | RAD ---
RADIOGRAPH ABDOMEN 1 VIEW: Date: 11/05/17 Time: 2353 hours HISTORY: Dobbhoff tube manipulation in 57-year-old male. COMPARISON: 11/05/17 at 2143 hours. FINDINGS: The Dobbhoff feeding tube has been retracted slightly. It is looped in the fundus of the stomach now. Its distal tip is directed medially. IMPRESSION: Dobbhoff feeding tube in fundus of stomach. POS: [facility]
[2017-11-06] MEDS: Lisinopril 20 MG TAB PER TUBE SCH (08:47)
[2017-11-06] MEDS: Finasteride 5 MG TAB FS SCH (08:47)
[2017-11-06] MEDS: Apixaban 5 MG TAB PER TUBE SCH ×2 (08:47→20:43)
[2017-11-06] MEDS: Carvedilol 6.25 MG TAB PER TUBE SCH ×3 (08:48→17:42)
[2017-11-06] MEDS: hydrALAZINE 25 MG TAB PER TUBE SCH ×4 (08:48→20:43)
[2017-11-06] MEDS: Amlodipine 10 MG TAB PER TUBE SCH (08:48)
[2017-11-06] MEDS: Famotidine 20 MG TAB PER TUBE SCH ×2 (08:48→20:43)
[2017-11-06] MEDS: Aspirin 81 mg Enteric Coated Tablet PER TUBE SCH (08:48)
--- NOTE | 2017-11-06 09:37 | PDOC.PN ---
- Subjective Encounter Start Date: 11/06/17 Encounter Start Time: 07:00 Patient seen and examined. No new complaints. No overnight events now had dubhuff tube and tube feeding started, still bp high, family bedside - Objective Resuscitation Status: Resuscitation Status FULL:Full Resuscitation MAR Reviewed: Yes Vital Signs & Weight: Vital Signs (12 hours) Temp Pulse Resp BP BP Pulse Ox 11/06/17 08:48 70 182/78 H 11/06/17 08:47 182/78 H 11/06/17 08:00 97.8 F 70 20 168/83 H 94 L 11/06/17 05:47 76 182/78 H 11/06/17 04:00 98.7 F 72 18 169/75 H 92 L 11/06/17 03:44 75 194/82 H 11/06/17 00:00 98.9 F 84 18 187/89 H 95 Weight Admit Weight 176 lb 6.4 oz Weight 176 lb 6.4 oz I&O: 11/05/17 11/06/17 11/07/17 06:59 06:59 06:59 Intake Total 110 Output Total 200 Balance -200 110 Result Diagrams: 11/05/17 03:39 11/05/17 03:38 Additional Labs: Accuchecks 11/06/17 11/05/17 11/05/17 05:46 20:20 17:21 POC Glucose 121 H 136 H 141 H Radiology Reviewed by me: Yes (xray abdomen reviewed) EKG Reviewed by me: Yes (nsr) Phys Exam - Physical Examination Constitutional: NAD HEENT: PERRLA, moist MMs, sclera anicteric dubhuff tube+ Neck: no JVD, supple Respiratory: no wheezing, no rales, no rhonchi Cardiovascular: RRR, no significant murmur, no rub Gastrointestinal: soft, non-tender, no distention, positive bowel sounds Musculoskeletal: no edema, pulses present left UE 0/5, left LE 1/5, dysarthria Psychiatric: normal affect, A&O x 3 Skin: no rash, normal turgor Dx/Plan (1) Acute CVA (cerebrovascular accident) Code(s): I63.9 - CEREBRAL INFARCTION, UNSPECIFIED Status: Acute (2) Asymptomatic bacteriuria Code(s): R82.71 - BACTERIURIA Status: Acute (3) Hypertensive urgency Code(s): I16.0 - HYPERTENSIVE URGENCY Status: Acute (4) Hypokalemia Code(s): E87.6 - HYPOKALEMIA Status: Acute (5) Diabetes type 2, controlled Code(s): E11.9 - TYPE 2 DIABETES MELLITUS WITHOUT COMPLICATIONS Status: Chronic (6) Dyslipidemia Code(s): E78.5 - HYPERLIPIDEMIA, UNSPECIFIED Status: Chronic (7) Tobacco abuse Code(s): Z72.0 - TOBACCO USE Status: Chronic - Plan cont current plan of care, PT/OT, speech therapy, DVT proph w/lovenox * continue tube feeding * add hydralazine 25 mg TID * medication via per tube * will need rehab on discharge * discussed with family bedside and answered questions * medication reviewed as below * symptomatic treatment. Review of Systems - Review of Systems ENT: negative: Ear Pain, Ear Discharge, Nose Pain, Nose Discharge, Nose Congestion, Mouth Pain, Mouth Swelling, Throat Pain, Throat Swelling, Other Respiratory: negative: Cough, Dry, Shortness of Breath, Hemoptysis, SOB with Excertion, Pleuritic Pain, Sputum, Wheezing Cardiovascular: negative: chest pain, palpitations, orthopnea, paroxysmal nocturnal dyspnea, edema, light headedness, other Gastrointestinal: negative: Nausea, Vomiting, Abdominal Pain, Diarrhea, Constipation, Melena, Hematochezia, Other Genitourinary: negative: Dysuria, Frequency, Incontinence, Hematuria, Retention , Other Musculoskeletal: negative: Neck Pain, Shoulder Pain, Arm Pain, Back Pain, Hand Pain, Leg Pain, Foot Pain, Other Neurological: Weakness, Change in Speech. negative: Numbness, Incoordination, Confusion, Seizures, Other - Medications/Allergies Allergies/Adverse Reactions: Allergies Allergy/AdvReac Type Severity Reaction Status Date / Time No Known Drug Allergies Allergy Verified 11/04/17 21:12 Medications: Current Medications Acetaminophen (Tylenol) 650 mg PER TUBE Q4H PRN PRN Reason: Headache/Fever or Pain Hydrocodone Bitart/Acetaminophen ([place] 5/325) 1 tab PER TUBE Q4H PRN PRN Reason: Moderate Pain (4-6) Last Admin: 11/05/17 16:44 Dose: 1 tab Al Hydroxide/Mg Hydroxide (Maalox) 30 ml PER TUBE Q6H PRN PRN Reason: Heartburn or Indigestion Amlodipine Besylate (Norvasc) 10 mg PER TUBE DAILY [facility] Last Admin: 11/06/17 08:48 Dose: 10 mg Apixaban (Eliquis) 5 mg PER TUBE BID [facility] Last Admin: 11/06/17 08:47 Dose: 5 mg Artificial Tears (Tears Renewed 15ml Bottle) 0 drop EA EYE PRN PRN PRN Reason: Dry Eyes Aspirin (Ecotrin) 81 mg PER TUBE DAILY [facility] Last Admin: 11/06/17 08:48 Dose: 81 mg Atorvastatin Calcium (Lipitor) 40 mg PER TUBE HS [facility] Last Admin: 11/05/17 21:18 Dose: 40 mg Carvedilol (Coreg) 6.25 mg PER TUBE BID-WM [facility] Last Admin: 11/06/17 08:48 Dose: 6.25 mg Dextrose/Water (Dextrose 50%) 25 gm SLOW IVP PRN PRN PRN Reason: Hypoglycemia Famotidine (Pepcid) 20 mg PER TUBE BID [facility] Last Admin: 11/06/17 08:48 Dose: 20 mg Finasteride (Proscar) 5 mg FS DAILY [facility] Last Admin: 11/06/17 08:47 Dose: 5 mg Glucagon (Glucagon) 1 mg IM PRN PRN PRN Reason: Hypoglycemia Guaifenesin (Robitussin Sf) 200 mg PER TUBE Q4H PRN PRN Reason: Cough Hydralazine HCl (Apresoline) 10 mg SLOW IVP Q2H PRN PRN Reason: Systolic BP > 180 Last Admin: 11/05/17 09:15 Dose: 10 mg Hydralazine HCl (Apresoline) 25 mg PER TUBE TID [facility] Last Admin: 11/06/17 08:48 Dose: 25 mg Ceftriaxone Sodium 1 gm/ (Sodium Chloride) 100 mls @ 200 mls/hr IVPB Q24HR [facility] Last Admin: 11/05/17 16:13 Dose: 100 mls Dextrose/Water (D5w) 1,000 mls @ 0 mls/hr IV .Q0M PRN PRN Reason: Hypoglycemia Insulin Human Lispro (Humalog) 0 units SC .MODERATE SLIDING SC PRN PRN Reason: Moderate Correctional Scale Insulin Human Lispro (Humalog) 0 units SC .BEDTIME SLIDING SC PRN PRN Reason: Bedtime Correctional Scale Labetalol HCl (Normodyne) 10 mg SLOW IVP Q2H PRN PRN Reason: Systolic BP > 180 Last Admin: 11/06/17 05:47 Dose: 10 mg Lisinopril (Zestril) 40 mg PER TUBE DAILY [facility] Last Admin: 11/06/17 08:47 Dose: 40 mg Loperamide HCl (Imodium) 2 mg PER TUBE PRN PRN PRN Reason: Diarrhea/Loose Stools Loratadine (Claritin) 10 mg PER TUBE DAILYPRN PRN PRN Reason: Sinus Symptoms Magnesium Hydroxide (Milk Of Magnesium) 30 ml PER TUBE DAILYPRN PRN PRN Reason: Constipation Mineral Oil/White Petrolatum (Eucerin Cream) 0 gm TOP BIDPRN PRN PRN Reason: Dry Skin Nicotine (Nicoderm Patch) 21 mg TD DAILY PRN PRN Reason: Smoking Cessation Ondansetron HCl (Zofran) 4 mg IVP Q6H PRN PRN Reason: Nausea/Vomiting Ondansetron HCl (Zofran Odt) 4 mg PER TUBE Q6H PRN PRN Reason: Nausea/Vomiting Phenol (Chloraseptic [place] 180 Ml Bot) 0 ml PO PRN PRN PRN Reason: Sore Throat Senna (Senokot) 2 tab PER TUBE HSPRN PRN PRN Reason: Constipation Sodium Chloride ([place] Nasal [place] 0.65%) 0 ml EA NARE QIDPRN PRN PRN Reason: Nasal Congestion Sodium Chloride (Flush - Normal Saline) 10 ml IVF PRN PRN PRN Reason: Saline Flush Zolpidem Tartrate (Ambien) 5 mg PER TUBE HSPRN PRN PRN Reason: Insomnia
[2017-11-06] MEDS: cefTRIAXone\\ROCEPHIN 1 GM in Sodium Chloride 0.9% 100 ML IVPB SCH (13:31)
[2017-11-06] MEDS: hydrALAZINE 20 MG/ML VIAL SLOW IVP PRN (18:24)
[2017-11-06] MEDS: Atorvastatin Calcium 40 MG TAB PER TUBE SCH (20:43)
[2017-11-07 04:27] LABS: #Basophils 0.1 thou/uL (0.0-0.2); #Eosinphils 0.4 thou/uL (0.0-0.7); #Lymphocytes 2.6 thou/uL (1.20-3.40); #Monocytes 1.4 thou/uL (0.11-0.59); #Neutrophils 10.8 thou/uL (1.40-6.50); %Basophils 0.5 % (0.0-1.0); %Eosinophils 2.9 % (0.0-10.0); %Lymphocytes 16.8 % (21.0-51.0); %Monocytes 9.3 % (0.0-10.0); %Neutrophils 70.6 % (42.0-75.0); Hemoglobin 15.2 g/dL (14.0-18.0); Mean Corpuscular HGB CONC 32.5 g/dL (32.0-36.0); Mean Corpuscular Hemoglobin 28.9 pg (27.0-31.0); Mean Corpuscular Volume 88.8 fL (78.0-98.0); Mean Platelet Volume 7.9 fL (7.4-10.4); Platelet Count 403 thou/uL (130-400); Red Blood Cell (RBC) Count 5.26 mill/uL (4.70-6.10); White Blood Cell (WBC) Count 15.3 thou/uL (4.8-10.8)
[2017-11-07 04:44] LABS: Anion Gap 17 mmol/L (10-20); BUN (Urea Nitrogen) 13 mg/dL (8.4-25.7); Calc. Creatinine Clearance 112 mL/min (70-130); Calcium 9.9 mg/dL (7.8-10.44); Carbon Dioxide 21 mmol/L (22-29); Chloride 106 mmol/L (98-107); Estimated GFR-MDRD Greater than 90; Glucose 114 mg/dL (70-105); Potassium 3.5 mmol/L (3.5-5.1); Sodium 140 mmol/L (136-145)
[2017-11-07] MEDS: Labetalol HCl 100 MG/20 ML VIAL SLOW IVP PRN ×2 (08:43→23:58)
--- NOTE | 2017-11-07 09:43 | PDOC.PN ---
- Subjective Encounter Start Date: 11/07/17 Encounter Start Time: 06:40 Patient seen and examined. No new complaints. No overnight events - Objective Resuscitation Status: Resuscitation Status FULL:Full Resuscitation MAR Reviewed: Yes Vital Signs & Weight: Vital Signs (12 hours) Temp Pulse Resp BP BP Pulse Ox 11/07/17 08:43 81 182/83 H 11/07/17 07:47 97.5 F L 81 16 182/83 H 97 11/07/17 03:51 97.2 F L 77 16 158/80 H 99 11/07/17 00:00 99.1 F 102 H 18 153/74 H 96 Weight Admit Weight 176 lb 6.4 oz Weight 176 lb 6.4 oz I&O: 11/06/17 11/07/17 11/08/17 06:59 06:59 06:59 Intake Total 110 0 Output Total 0 Balance 110 0 Result Diagrams: 11/07/17 03:39 11/07/17 03:39 Additional Labs: Accuchecks 11/07/17 11/06/17 11/06/17 05:39 21:47 17:06 POC Glucose 110 108 141 H 11/06/17 11:00 POC Glucose 134 H EKG Reviewed by me: Yes (nsr) Phys Exam - Physical Examination Constitutional: NAD HEENT: PERRLA, moist MMs, sclera anicteric Neck: no JVD, supple Respiratory: no wheezing, no rales, no rhonchi Cardiovascular: RRR, no significant murmur, no rub Gastrointestinal: soft, non-tender, no distention, positive bowel sounds Musculoskeletal: no edema, pulses present left side weakness, expressive aphasia Psychiatric: normal affect, A&O x 3 Skin: no rash, normal turgor Dx/Plan (1) Acute CVA (cerebrovascular accident) Code(s): I63.9 - CEREBRAL INFARCTION, UNSPECIFIED Status: Acute (2) Asymptomatic bacteriuria Code(s): R82.71 - BACTERIURIA Status: Acute (3) Hypertensive urgency Code(s): I16.0 - HYPERTENSIVE URGENCY Status: Acute (4) Hypokalemia Code(s): E87.6 - HYPOKALEMIA Status: Acute (5) Diabetes type 2, controlled Code(s): E11.9 - TYPE 2 DIABETES MELLITUS WITHOUT COMPLICATIONS Status: Chronic (6) Dyslipidemia Code(s): E78.5 - HYPERLIPIDEMIA, UNSPECIFIED Status: Chronic (7) Tobacco abuse Code(s): Z72.0 - Status: Chronic - Plan cont current plan of care, plan discussed w/ family, continue antibiotics, PT/OT , aids social worker, speech therapy, DVT proph w/lovenox * today speech will evaluate and if he fails, then will consult GI for PEG tube placement, family agreed * he will need rehab on discharge * medication reviewed as below * symptomatic treatment * continue stroke team evaluation. Review of Systems - Review of Systems Constitutional: negative: fever, chills, sweats, weakness, malaise, other Eyes: negative: Pain, Vision Change, Conjunctivae Inflammation, Eyelid Inflammation, Redness, Other ENT: negative: Ear Pain, Ear Discharge, Nose Pain, Nose Discharge, Nose Congestion, Mouth Pain, Mouth Swelling, Throat Pain, Throat Swelling, Other Respiratory: negative: Cough, Dry, Shortness of Breath, Hemoptysis, SOB with Excertion, Pleuritic Pain, Sputum, Wheezing Cardiovascular: negative: chest pain, palpitations, orthopnea, paroxysmal nocturnal dyspnea, edema, light headedness, other Gastrointestinal: negative: Nausea, Vomiting, Abdominal Pain, Diarrhea, Constipation, Melena, Hematochezia, Other Genitourinary: negative: Dysuria, Frequency, Incontinence, Hematuria, Retention , Other Musculoskeletal: negative: Neck Pain, Shoulder Pain, Arm Pain, Back Pain, Hand Pain, Leg Pain, Foot Pain, Other Neurological: Weakness, Change in Speech. negative: Numbness, Incoordination, Confusion, Seizures, Other - Medications/Allergies Allergies/Adverse Reactions: Allergies Allergy/AdvReac Type Severity Reaction Status Date / Time No Known Drug Allergies Allergy Verified 11/04/17 21:12 Medications: Current Medications Acetaminophen (Tylenol) 650 mg PER TUBE Q4H PRN PRN Reason: Headache/Fever or Pain Hydrocodone Bitart/Acetaminophen ([place] 5/325) 1 tab PER TUBE Q4H PRN PRN Reason: Moderate Pain (4-6) Last Admin: 11/05/17 16:44 Dose: 1 tab Al Hydroxide/Mg Hydroxide (Maalox) 30 ml PER TUBE Q6H PRN PRN Reason: Heartburn or Indigestion Amlodipine Besylate (Norvasc) 10 mg PER TUBE DAILY [facility] Last Admin: 11/06/17 08:48 Dose: 10 mg Apixaban (Eliquis) 5 mg PER TUBE BID [facility] Last Admin: 11/06/17 20:43 Dose: Not Given Artificial Tears (Tears Renewed 15ml Bottle) 0 drop EA EYE PRN PRN PRN Reason: Dry Eyes Aspirin (Ecotrin) 81 mg PER TUBE DAILY [facility] Last Admin: 11/06/17 08:48 Dose: 81 mg Atorvastatin Calcium (Lipitor) 40 mg PER TUBE HS [facility] Last Admin: 11/06/17 20:43 Dose: Not Given Carvedilol (Coreg) 6.25 mg PER TUBE BID[facility] Last Admin: 11/06/17 17:42 Dose: Not Given Dextrose/Water (Dextrose 50%) 25 gm SLOW IVP PRN PRN PRN Reason: Hypoglycemia Famotidine (Pepcid) 20 mg PER TUBE BID [facility] Last Admin: 11/06/17 20:43 Dose: Not Given Finasteride (Proscar) 5 mg FS DAILY [facility] Last Admin: 11/06/17 08:47 Dose: 5 mg Glucagon (Glucagon) 1 mg IM PRN PRN PRN Reason: Hypoglycemia Guaifenesin (Robitussin Sf) 200 mg PER TUBE Q4H PRN PRN Reason: Cough Hydralazine HCl (Apresoline) 10 mg SLOW IVP Q2H PRN PRN Reason: Systolic BP > 180 Last Admin: 11/06/17 18:24 Dose: 10 mg Hydralazine HCl (Apresoline) 25 mg PER TUBE TID [facility] Last Admin: 11/06/17 20:43 Dose: Not Given Ceftriaxone Sodium 1 gm/ (Sodium Chloride) 100 mls @ 200 mls/hr IVPB Q24HR [facility] Last Admin: 11/06/17 13:31 Dose: 100 mls Dextrose/Water (D5w) 1,000 mls @ 0 mls/hr IV .Q0M PRN PRN Reason: Hypoglycemia Insulin Human Lispro (Humalog) 0 units SC .MODERATE SLIDING SC PRN PRN Reason: Moderate Correctional Scale Insulin Human Lispro (Humalog) 0 units SC .BEDTIME SLIDING SC PRN PRN Reason: Bedtime Correctional Scale Labetalol HCl (Normodyne) 10 mg SLOW IVP Q2H PRN PRN Reason: Systolic BP > 180 Last Admin: 11/07/17 08:43 Dose: 10 mg Lisinopril (Zestril) 40 mg PER TUBE DAILY [facility] Last Admin: 11/06/17 08:47 Dose: 40 mg Loperamide HCl (Imodium) 2 mg PER TUBE PRN PRN PRN Reason: Diarrhea/Loose Stools Loratadine (Claritin) 10 mg PER TUBE DAILYPRN PRN PRN Reason: Sinus Symptoms Magnesium Hydroxide (Milk Of Magnesium) 30 ml PER TUBE DAILYPRN PRN PRN Reason: Constipation Mineral Oil/White Petrolatum (Eucerin Cream) 0 gm TOP BIDPRN PRN PRN Reason: Dry Skin Nicotine (Nicoderm Patch) 21 mg TD DAILY PRN PRN Reason: Smoking Cessation Ondansetron HCl (Zofran) 4 mg IVP Q6H PRN PRN Reason: Nausea/Vomiting Ondansetron HCl (Zofran Odt) 4 mg PER TUBE Q6H PRN PRN Reason: Nausea/Vomiting Phenol (Chloraseptic [place] 180 Ml Bot) 0 ml PO PRN PRN PRN Reason: Sore Throat Senna (Senokot) 2 tab PER TUBE HSPRN PRN PRN Reason: Constipation Sodium Chloride ([place] Nasal [place] 0.65%) 0 ml EA NARE QIDPRN PRN PRN Reason: Nasal Congestion Sodium Chloride (Flush - Normal Saline) 10 ml IVF PRN PRN PRN Reason: Saline Flush Zolpidem Tartrate (Ambien) 5 mg PER TUBE HSPRN PRN PRN Reason: Insomnia
[2017-11-07] MEDS: Carvedilol 6.25 MG TAB PER TUBE SCH ×2 (12:00→18:01)
[2017-11-07] MEDS: Amlodipine 10 MG TAB PER TUBE SCH (12:01)
[2017-11-07] MEDS: Aspirin 81 mg Enteric Coated Tablet PER TUBE SCH (12:01)
[2017-11-07] MEDS: Apixaban 5 MG TAB PER TUBE SCH ×2 (12:01→19:26)
[2017-11-07] MEDS: Famotidine 20 MG TAB PER TUBE SCH ×2 (12:01→19:26)
[2017-11-07] MEDS: Finasteride 5 MG TAB FS SCH (12:02)
[2017-11-07] MEDS: hydrALAZINE 25 MG TAB PER TUBE SCH ×3 (12:02→19:26)
[2017-11-07] MEDS: Lisinopril 20 MG TAB PER TUBE SCH (12:02)
[2017-11-07] MEDS: cefTRIAXone\\ROCEPHIN 1 GM in Sodium Chloride 0.9% 100 ML IVPB SCH (15:02)
[2017-11-07] MEDS: Atorvastatin Calcium 40 MG TAB PER TUBE SCH (19:26)
--- NOTE | 2017-11-08 01:43 | CON ---
GASTROENTEROLOGY CONSULTATION NOTE DATE OF CONSULTATION: 11/07/2017 CHIEF COMPLAINT: Cannot swallow. HISTORY OF PRESENT ILLNESS: Mr. Douglas is a 57-year-old man who presented on 11/04/2017 with hype rtensive urgency and stroke. He has been unable to swallow safely. He has dysarthria as well. He h ad already been on Eliquis as an outpatient. He was not a candidate for tPA. He had had prior strok es in 2014 and in 10/2017. GI was consulted for PEG tube placement due to the dysphagia and aspirati on risk. PAST MEDICAL HISTORY: Stroke, hypertension, diabetes mellitus type 2, dyslipidemia, tobacco abuse. PAST SURGICAL HISTORY: Negative. FAMILY HISTORY: Negative for GI malignancy. SOCIAL HISTORY: Smoked a pack and a half per day prior to admission. No alcohol or drugs. ALLERGIES: No known drug allergies. MEDICATIONS PRIOR TO ADMISSION: Aspirin, lisinopril, Proscar, Eliquis, Lipitor. REVIEW OF SYSTEMS: Negative x10 systems reviewed except as stated in the history of present illness. This is limited given the patient's dysarthria. OBJECTIVE: VITAL SIGNS: Temperature 99.1, pulse 89, blood pressure 182/83, oxygen saturation 93% on room air. GENERAL: He is alert and awake and responds appropriately to questions with yes and no answers by no dding his head. EYES: Have no scleral icterus. OROPHARYNX: Clear, without lesions. NECK: No cervical or supraclavicular lymphadenopathy. LUNGS: Clear to auscultation bilaterally. HEART: Regular rate and rhythm without murmur. ABDOMEN: Soft, nontender, nondistended. Bowel sounds are present. EXTREMITIES: No lower extremity edema. LABORATORY DATA: White blood cell count 15.3, hemoglobin 15.2, platelets 403,000. INR 1.4 back on 0 11/04. Creatinine 0.84, hemoglobin A1c was 6.1. Liver tests on 11/04/2017, include bilirubin 0.5, T 20, ALT 20, alkaline phosphatase 169, albumin 3.6. IMPRESSION: Dysphagia secondary to stroke. RECOMMENDATION: Esophagogastroduodenoscopy tomorrow with percutaneous endoscopic gastrostomy tube pl acement. Preprocedure antibiotics per SCIP protocol. This should be with Ancef 2 grams. The risks and benefits of PEG tube placement were discussed in detail with the patient and his family.
[2017-11-08 04:29] LABS: #Basophils 0.1 thou/uL (0.0-0.2); #Eosinphils 0.5 thou/uL (0.0-0.7); #Lymphocytes 2.4 thou/uL (1.20-3.40); #Monocytes 1.2 thou/uL (0.11-0.59); #Neutrophils 8.6 thou/uL (1.40-6.50); %Basophils 0.5 % (0.0-1.0); %Eosinophils 3.9 % (0.0-10.0); %Lymphocytes 19.1 % (21.0-51.0); %Monocytes 9.7 % (0.0-10.0); %Neutrophils 66.8 % (42.0-75.0); Mean Corpuscular HGB CONC 32.4 g/dL (32.0-36.0); Mean Corpuscular Hemoglobin 28.8 pg (27.0-31.0); Mean Corpuscular Volume 88.8 fL (78.0-98.0); Mean Platelet Volume 7.8 fL (7.4-10.4); Platelet Count 422 thou/uL (130-400); RBC Distribution Width 11.9 % (11.5-14.5); Red Blood Cell (RBC) Count 5.22 mill/uL (4.70-6.10); White Blood Cell (WBC) Count 12.8 thou/uL (4.8-10.8)
[2017-11-08 04:58] LABS: Anion Gap 19 mmol/L (10-20); BUN (Urea Nitrogen) 20 mg/dL (8.4-25.7); Calc. Creatinine Clearance 111 mL/min (70-130); Calcium 9.9 mg/dL (7.8-10.44); Carbon Dioxide 19 mmol/L (22-29); Chloride 107 mmol/L (98-107); Estimated GFR-MDRD Greater than 90; Glucose 111 mg/dL (70-105); Potassium 3.6 mmol/L (3.5-5.1); Sodium 141 mmol/L (136-145)
[2017-11-08] MEDS: Apixaban 5 MG TAB PER TUBE SCH ×2 (08:56→20:24)
[2017-11-08] MEDS: Carvedilol 6.25 MG TAB PER TUBE SCH ×2 (08:56→17:27)
[2017-11-08] MEDS: Amlodipine 10 MG TAB PER TUBE SCH (08:56)
[2017-11-08] MEDS: Famotidine 20 MG TAB PER TUBE SCH ×2 (08:57→20:24)
[2017-11-08] MEDS: Aspirin 81 mg Enteric Coated Tablet PER TUBE SCH (08:57)
[2017-11-08] MEDS: hydrALAZINE 25 MG TAB PER TUBE SCH ×3 (08:57→20:24)
[2017-11-08] MEDS: Finasteride 5 MG TAB FS SCH (08:57)
[2017-11-08] MEDS: Lisinopril 20 MG TAB PER TUBE SCH (08:58)
--- NOTE | 2017-11-08 12:04 | OP ---
DATE OF PROCEDURE: 11/08/2017 PREOPERATIVE DIAGNOSIS: Oropharyngeal dysphagia. PROCEDURE: After informed consent was obtained, the patient placed in the supine position. Anesthes ia was administered per the Anesthesia Department. Forward-viewing endoscope was inserted into the e sophagus under direct visualization with ease and passed to the second portion of the duodenum with e ase. Second portion of the duodenum and duodenal bulb were normal. The pylorus, antrum, body, fundu s, and cardia were normal. Esophagus was normal throughout. The area was prepped and draped in usua l manner. Anesthesia was applied with 1% lidocaine without epinephrine. A needle was inserted throu gh the abdominal wall on the first pass and a guidewire was passed, snared, and brought out of the [facility]. The PEG tube was attached and brought through the abdominal wall after a small incision was mad e. Reinsertion of the endoscope showed the peg bumper to be in good position. ASSESSMENT: Successful percutaneous endoscopic gastrostomy. RECOMMENDATIONS: Begin tube feedings in 8 hours.
[2017-11-08] MEDS: cefTRIAXone\\ROCEPHIN 1 GM in Sodium Chloride 0.9% 100 ML IVPB SCH (13:03)
[2017-11-08] MEDS ORDERED: PROPOFOL 200 MG/20 ML VIAL ONE (13:47)
--- NOTE | 2017-11-08 16:58 | CT ---
CT ARTERIOGRAM NECK WITH IV CONTRAST AND 3D MIP IMAGING CT ARTERIOGRAM HEAD WITH IV CONTRAST AND 3D MIP IMAGING CT HEAD WITH IV CONTRAST: History: CVA. FINDINGS: There is normal branching of the great vessels at the aortic arch with very mild calcification and at herosclerosis. At each carotid bifurcation, there is minimal atherosclerosis and calcification. Good flow throughout each internal carotid and vertebral system. Good opacification of the middle and anterior cerebral arteries. [place] of [place] is intact. Chronic ischemic small vessel disease of the brain is again demonstrated. No abnormal areas of contrast enhancement. Within the partially visualized upper chest, calcified granulomata and reactive appearing lymph nodes of the mediastinum are apparent. IMPRESSION: 1. Chronic type findings. No acute intracranial abnormalities are demonstrated. 2. Findings were called to Dr. Obregon in the Emergency Department at 0830 hours. Code CR POS: SJSandra
[2017-11-08] MEDS: Acetaminophen 325 MG TAB PER TUBE PRN (17:27)
[2017-11-08] MEDS: Atorvastatin Calcium 40 MG TAB PER TUBE SCH (20:24)
--- NOTE | 2017-11-08 21:06 | PDOC.PN ---
- Subjective Encounter Start Date: 11/08/17 Encounter Start Time: 10:00 Subjective: f/u for acute isch CVA with L hemiparesis and expressive aphasia, dysphagia -: plan for EGD/PEG placement today. - Objective Resuscitation Status: Resuscitation Status FULL:Full Resuscitation MAR Reviewed: Yes Vital Signs & Weight: Vital Signs (12 hours) Temp Pulse Pulse Pulse Resp BP BP 11/08/17 20:24 80 137/68 11/08/17 17:27 155/69 H 11/08/17 15:51 76 155/69 H 11/08/17 15:47 76 11/08/17 15:37 97.8 F 97 16 11/08/17 12:25 97.5 F L 92 18 11/08/17 09:10 93 91 171/85 H BP BP BP Pulse Ox 11/08/17 20:24 11/08/17 17:27 11/08/17 15:51 11/08/17 15:47 155/69 H 11/08/17 15:37 201/92 H 96 11/08/17 12:25 172/71 H 93 L 11/08/17 09:10 178/85 H Weight Admit Weight 176 lb 6.4 oz Weight 176 lb 6.4 oz I&O: 11/07/17 11/08/17 11/09/17 06:59 06:59 06:59 Intake Total 0 0 190 Output Total 0 Balance 0 0 190 Result Diagrams: 11/08/17 03:42 11/08/17 03:42 Additional Labs: Accuchecks 11/08/17 11/08/17 11/07/17 16:52 06:02 20:47 POC Glucose 113 H 106 108 Radiology Reviewed by me: Yes (Echo - EF 65%, Grade I/III diast dysfxn) EKG Reviewed by me: Yes (Tele - SR) Phys Exam - Physical Examination Constitutional: NAD HEENT: PERRLA, sclera anicteric, oral pharynx no lesions Neck: no nodes, no JVD, supple, full ROM Respiratory: no wheezing, no rales, no rhonchi, clear to auscultation bilateral S1, S2 Cardiovascular: RRR, no significant murmur, no rub, gallop Gastrointestinal: soft, non-tender, no distention, positive bowel sounds Musculoskeletal: no edema, pulses present L hemiparesis, expressive aphasia, dysphagia Skin: no rash, normal turgor, cap refill <2 seconds Dx/Plan (1) Acute CVA (cerebrovascular accident) Code(s): I63.9 - CEREBRAL INFARCTION, UNSPECIFIED Status: Acute Comment: Ischemic CVA with L hemiparesis and aphasia, continue ASA, Eliquis (2) Hypokalemia Code(s): E87.6 - HYPOKALEMIA Status: Acute Comment: Improved, continue KCL replacement as clinically indicated (3) Diabetes type 2, controlled Code(s): E11.9 - TYPE 2 DIABETES MELLITUS WITHOUT COMPLICATIONS Status: Chronic Comment: Diet managed, serial accuchecks (4) Dyslipidemia Code(s): E78.5 - HYPERLIPIDEMIA, UNSPECIFIED Status: Chronic Comment: Continue Lipitor 40mg HS (5) Tobacco abuse Code(s): Z72.0 - TOBACCO USE Status: Chronic Comment: Tobacco cessation resources - Plan PT/OT, psychiatric social worker, speech therapy, DVT proph w/SCDs Stable currently -: Continue ASA and Eliquis -: Continue Lipitor 40mg HS -: PT/OT/ST -: PEG placement today * Rehab options after d/c
[2017-11-09] MEDS: Carvedilol 6.25 MG TAB PER TUBE SCH ×2 (08:16→16:08)
[2017-11-09] MEDS: Amlodipine 10 MG TAB PER TUBE SCH (08:17)
[2017-11-09] MEDS: Aspirin 81 mg Enteric Coated Tablet PER TUBE SCH (08:18)
[2017-11-09] MEDS: Apixaban 5 MG TAB PER TUBE SCH ×2 (08:18→20:46)
[2017-11-09] MEDS: Famotidine 20 MG TAB PER TUBE SCH ×2 (08:18→20:46)
[2017-11-09] MEDS: hydrALAZINE 25 MG TAB PER TUBE SCH ×3 (08:19→20:48)
[2017-11-09] MEDS: Lisinopril 20 MG TAB PER TUBE SCH (08:19)
[2017-11-09] MEDS: Finasteride 5 MG TAB FS SCH (08:19)
--- NOTE | 2017-11-09 14:02 | PDOC.PN ---
- Subjective Encounter Start Date: 11/09/17 Encounter Start Time: 13:50 Subjective: f/u for bilat acute hemispheric CVA's likely ischemic s/p PEG tube 11/08/17 -: Tolerating goal TF's currently. - Objective Resuscitation Status: Resuscitation Status FULL:Full Resuscitation MAR Reviewed: Yes Vital Signs & Weight: Vital Signs (12 hours) Temp Pulse Resp BP BP BP Pulse Ox 11/09/17 12:00 96 F L 78 17 155/83 H 93 L 11/09/17 08:19 83 177/85 H 11/09/17 08:17 83 177/85 H 11/09/17 08:16 177/85 H 11/09/17 07:55 97.5 F L 83 18 177/85 H 93 L 11/09/17 04:00 98.1 F 87 19 148/71 H 95 Weight Admit Weight 176 lb 6.4 oz Weight 176 lb 6.4 oz I&O: 11/08/17 11/09/17 11/10/17 06:59 06:59 06:59 Intake Total 0 916 Balance 0 916 Result Diagrams: 11/08/17 03:42 11/08/17 03:42 Additional Labs: Accuchecks 11/09/17 11/09/17 11/08/17 11:14 06:14 20:06 POC Glucose 145 H 128 H 115 H 11/08/17 16:52 POC Glucose 113 H EKG Reviewed by me: Yes (Tele - SR) Phys Exam - Physical Examination Constitutional: NAD HEENT: PERRLA, sclera anicteric, oral pharynx no lesions Neck: no nodes, no JVD, supple, full ROM Respiratory: no wheezing, no rales, clear to auscultation bilateral S1, S2 Cardiovascular: RRR, no significant murmur, no rub, gallop PEG in place Gastrointestinal: soft, non-tender, no distention, positive bowel sounds Musculoskeletal: no edema, pulses present L hemiparesis, expressive aphasia, dysphagia Skin: no rash, normal turgor, cap refill <2 seconds Dx/Plan (1) Acute CVA (cerebrovascular accident) Code(s): I63.9 - CEREBRAL INFARCTION, UNSPECIFIED Status: Acute Comment: Ischemic CVA with L hemiparesis and aphasia, continue ASA, Eliquis (2) Hypokalemia Code(s): E87.6 - HYPOKALEMIA Status: Acute Comment: Improved, continue KCL replacement as clinically indicated (3) Diabetes type 2, controlled Code(s): E11.9 - TYPE 2 DIABETES MELLITUS WITHOUT COMPLICATIONS Status: Chronic Comment: Diet managed, serial accuchecks (4) Dyslipidemia Code(s): E78.5 - HYPERLIPIDEMIA, UNSPECIFIED Status: Chronic Comment: Continue Lipitor 40mg HS (5) Tobacco abuse Code(s): Z72.0 - TOBACCO USE Status: Chronic Comment: Tobacco cessation resources - Plan plan discussed w/ family Stable overall -: Continue nutritional supplementation Diabetic 1.2 formula 70ml/h -: PT/OT/ST -: CM for dispo assistance due to financial constraints -: Increase Coreg 12.5mg BID * Serial BP monitoring * Continue KEVEN Lee
[2017-11-09] MEDS: cefTRIAXone\\ROCEPHIN 1 GM in Sodium Chloride 0.9% 100 ML IVPB SCH (14:09)
[2017-11-09] MEDS: Acetaminophen 325 MG TAB PER TUBE PRN (18:46)
--- NOTE | 2017-11-09 19:52 | PRG ---
DATE OF SERVICE: 11/09/2017 SUBJECTIVE: Mr. Douglas tolerated his gastrostomy tube placement well. He is tolerating his tube f eeds and has no pain at the site. OBJECTIVE: ABDOMEN: Soft and nontender. His bowel sounds are present. The skin around the gastrostomy site ap pears healthy. The external bumper was loosened. IMPRESSION: Oropharyngeal dysphagia, status post gastrostomy tube placement. RECOMMENDATIONS: Continue tube feeds as tolerated. He should be able to transition to bolus feeds p er dietitian recommendations. I will sign off for now. Please call if GI can be of assistance.
[2017-11-09] MEDS: HYDROcodone/Acetaminophen 5/325 mg Tablet PER TUBE PRN (20:46)
[2017-11-09] MEDS: Atorvastatin Calcium 40 MG TAB PER TUBE SCH (20:48)
[2017-11-10] MEDS: Aspirin 81 mg Enteric Coated Tablet PER TUBE SCH (08:26)
[2017-11-10] MEDS: Apixaban 5 MG TAB PER TUBE SCH ×2 (08:26→22:01)
[2017-11-10] MEDS: Amlodipine 10 MG TAB PER TUBE SCH (08:27)
[2017-11-10] MEDS: hydrALAZINE 25 MG TAB PER TUBE SCH ×3 (08:27→22:01)
[2017-11-10] MEDS: Famotidine 20 MG TAB PER TUBE SCH ×2 (08:27→22:00)
[2017-11-10] MEDS: Carvedilol 6.25 MG TAB PER TUBE SCH ×2 (08:28→16:05)
[2017-11-10] MEDS: Lisinopril 20 MG TAB PER TUBE SCH (08:29)
[2017-11-10] MEDS: Finasteride 5 MG TAB FS SCH (09:53)
[2017-11-10] MEDS: cefTRIAXone\\ROCEPHIN 1 GM in Sodium Chloride 0.9% 100 ML IVPB SCH (13:33)
[2017-11-10] MEDS: Acetaminophen 325 MG TAB PER TUBE PRN (16:05)
[2017-11-10] MEDS: Milk Of Magnesia 30 ML UDCUP PER TUBE PRN (16:05)
--- NOTE | 2017-11-10 18:17 | PDOC.PN ---
- Subjective Encounter Start Date: 11/10/17 Encounter Start Time: 18:05 Subjective: f/u for ischemic CVA with expressive aphasia, dysphagia and L hemiparesis -: Tolerated TF's with conversion to bolus. - Objective Resuscitation Status: Resuscitation Status FULL:Full Resuscitation MAR Reviewed: Yes Vital Signs & Weight: Vital Signs (12 hours) Temp Pulse Pulse Pulse Resp BP BP 11/10/17 16:05 67 140/71 11/10/17 15:50 98.8 F 68 16 11/10/17 13:43 70 70 151/72 H 11/10/17 11:57 98.6 F 70 16 11/10/17 08:29 135/77 11/10/17 08:28 135/77 11/10/17 08:27 67 135/77 11/10/17 08:00 98.9 F 72 14 BP BP Pulse Ox 11/10/17 16:05 11/10/17 15:50 150/75 H 94 L 11/10/17 13:43 152/75 H 11/10/17 11:57 148/74 H 95 11/10/17 08:29 11/10/17 08:28 11/10/17 08:27 11/10/17 08:00 135/77 93 L Weight Admit Weight 176 lb 6.4 oz Weight 176 lb 6.4 oz I&O: 11/09/17 11/10/17 11/11/17 06:59 06:59 06:59 Intake Total 916 3097 1193 Balance 916 3097 1193 Result Diagrams: 11/08/17 03:42 11/08/17 03:42 Additional Labs: Accuchecks 11/10/17 11/10/17 11/10/17 17:06 10:57 05:47 POC Glucose 134 H 163 H 130 H EKG Reviewed by me: Yes (Tele - SR) Phys Exam - Physical Examination alert, aphasic HEENT: PERRLA, sclera anicteric, oral pharynx no lesions Neck: no nodes, no JVD, supple, full ROM Respiratory: no wheezing, no rales, no rhonchi, clear to auscultation bilateral S1, S2 Cardiovascular: RRR, no significant murmur, no rub, gallop Gastrointestinal: soft, non-tender, no distention, positive bowel sounds Musculoskeletal: no edema, pulses present aphasic, L hemiparesis flat affect Skin: normal turgor, cap refill <2 seconds Dx/Plan (1) Acute CVA (cerebrovascular accident) Code(s): I63.9 - CEREBRAL INFARCTION, UNSPECIFIED Status: Acute Comment: 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, continue ASA, Eliquis (2) Hypokalemia Code(s): E87.6 - HYPOKALEMIA Status: Acute Comment: Improved, continue KCL replacement as clinically indicated (3) Diabetes type 2, controlled Code(s): E11.9 - TYPE 2 DIABETES MELLITUS WITHOUT COMPLICATIONS Status: Chronic Comment: Diet managed, serial accuchecks (4) Dyslipidemia Code(s): E78.5 - HYPERLIPIDEMIA, UNSPECIFIED Status: Chronic Comment: Continue Lipitor 40mg HS (5) Tobacco abuse Code(s): Z72.0 - TOBACCO USE Status: Chronic Comment: Tobacco cessation resources (6) Dysphagia Code(s): R13.10 - DYSPHAGIA, UNSPECIFIED Status: Acute Qualifiers: Dysphagia type: oropharyngeal phase Qualified Code(s): R13.12 - Dysphagia, oropharyngeal phase Comment: s/p PEG tube with nutritional support with bolus feeds - Plan plan discussed w/ family, PT/OT, social media marketing specialist, speech therapy, DVT proph w/ SCDs Stable currently -: Continue Eliquis/ASA -: Start Flomax 0.4mg daily -: Nutritional support with bolus feeds -: AM lab: BMP, Mg++, PO3 * .
[2017-11-10] MEDS: Atorvastatin Calcium 40 MG TAB PER TUBE SCH (22:01)
[2017-11-11 05:56] LABS: Hemoglobin 14.8 g/dL (14.0-18.0); Platelet Count 447 thou/uL (130-400)
[2017-11-11 06:02] LABS: Anion Gap 11 mmol/L (10-20); BUN (Urea Nitrogen) 20 mg/dL (8.4-25.7); Calc. Creatinine Clearance 120 mL/min (70-130); Calcium 9.7 mg/dL (7.8-10.44); Carbon Dioxide 27 mmol/L (22-29); Chloride 106 mmol/L (98-107); Estimated GFR-MDRD Greater than 90; Glucose 139 mg/dL (70-105); Magnesium 2.5 mg/dL (1.6-2.6); Phosphorus 3.8 mg/dL (2.3-4.7); Potassium 3.8 mmol/L (3.5-5.1); Sodium 140 mmol/L (136-145)
[2017-11-11] MEDS: Ondansetron HCl/PF 4 MG/2 ML Vial IVP PRN (13:02)
[2017-11-11] MEDS: Carvedilol 6.25 MG TAB PER TUBE SCH ×2 (13:29→15:43)
[2017-11-11] MEDS: Amlodipine 10 MG TAB PER TUBE SCH (13:29)
[2017-11-11] MEDS: Lisinopril 20 MG TAB PER TUBE SCH (13:30)
[2017-11-11] MEDS: hydrALAZINE 25 MG TAB PER TUBE SCH ×3 (13:30→21:18)
[2017-11-11] MEDS: Apixaban 5 MG TAB PER TUBE SCH ×2 (13:30→21:18)
[2017-11-11] MEDS: Finasteride 5 MG TAB FS SCH (13:30)
[2017-11-11] MEDS: Famotidine 20 MG TAB PER TUBE SCH ×2 (13:30→21:18)
[2017-11-11] MEDS: Aspirin 81 mg Enteric Coated Tablet PER TUBE SCH (13:30)
[2017-11-11] MEDS: cefTRIAXone\\ROCEPHIN 1 GM in Sodium Chloride 0.9% 100 ML IVPB SCH (15:36)
--- NOTE | 2017-11-11 20:47 | PDOC.PN ---
- Subjective Encounter Start Date: 11/11/17 Encounter Start Time: 18:30 Subjective: f/u for isch CVA with expressive aphasia, dense L hemiparesis, dysphagia -: s/p PEG placement. Tolerating TF's. - Objective Resuscitation Status: Resuscitation Status FULL:Full Resuscitation MAR Reviewed: Yes Vital Signs & Weight: Vital Signs (12 hours) Temp Pulse Pulse Pulse Resp BP BP 11/11/17 19:56 98.6 F 70 19 11/11/17 15:43 120/68 11/11/17 15:42 98.4 F 85 18 11/11/17 15:36 74 120/68 11/11/17 13:30 74 143/78 H 11/11/17 13:29 74 143/78 H 11/11/17 11:45 97.5 F L 74 16 11/11/17 09:28 69 66 144/70 H 11/11/17 08:55 BP BP Pulse Ox 11/11/17 19:56 150/75 H 89 L 11/11/17 15:43 11/11/17 15:42 124/69 93 L 11/11/17 15:36 11/11/17 13:30 11/11/17 13:29 11/11/17 11:45 143/78 H 96 11/11/17 09:28 144/83 H 11/11/17 08:55 96 Weight Admit Weight 176 lb 6.4 oz Weight 176 lb 6.4 oz I&O: 11/10/17 11/11/17 11/12/17 06:59 06:59 06:59 Intake Total 3097 2022 1852 Balance 3097 2022 185 Result Diagrams: 11/11/17 05:27 11/11/17 05:27 Additional Labs: Accuchecks 11/11/17 11/11/17 11/11/17 18:25 12:24 05:57 POC Glucose 128 H 162 H 136 H 11/11/17 01:24 POC Glucose 168 H EKG Reviewed by me: Yes (Tele - SR) Phys Exam - Physical Examination Constitutional: NAD HEENT: PERRLA, sclera anicteric, oral pharynx no lesions Neck: no nodes, no JVD, supple, full ROM Respiratory: no wheezing, no rales, no rhonchi, clear to auscultation bilateral S1, S2 Cardiovascular: RRR, no significant murmur, no rub, gallop PEG site CDI Gastrointestinal: soft, non-tender, no distention, positive bowel sounds Musculoskeletal: no edema, pulses present L hemiparesis, expressive aphasia, dysphagia Skin: normal turgor, cap refill <2 seconds Dx/Plan (1) Acute CVA (cerebrovascular accident) Code(s): I63.9 - CEREBRAL INFARCTION, UNSPECIFIED Status: Acute Comment: 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, continue ASA, Eliquis (2) Hypokalemia Code(s): E87.6 - HYPOKALEMIA Status: Acute Comment: Improved, continue KCL replacement as clinically indicated (3) Diabetes type 2, controlled Code(s): E11.9 - TYPE 2 DIABETES MELLITUS WITHOUT COMPLICATIONS Status: Chronic Comment: Diet managed, serial accuchecks (4) Dyslipidemia Code(s): E78.5 - HYPERLIPIDEMIA, UNSPECIFIED Status: Chronic Comment: Continue Lipitor 40mg HS (5) Tobacco abuse Code(s): Z72.0 - TOBACCO USE Status: Chronic Comment: Tobacco cessation resources (6) Dysphagia Code(s): R13.10 - DYSPHAGIA, UNSPECIFIED Status: Acute Qualifiers: Dysphagia type: oropharyngeal phase Qualified Code(s): R13.12 - Dysphagia, oropharyngeal phase Comment: s/p PEG tube with nutritional support with bolus feeds - Plan PT/OT, transition social worker, speech therapy, DVT proph w/SCDs Stable currently -: Continue routine stroke protocol -: Continue ASA/Eliquis -: Continue Lipitor -: SNF options pending * .
[2017-11-11] MEDS: Atorvastatin Calcium 40 MG TAB PER TUBE SCH (21:18)
[2017-11-12] MEDS: hydrALAZINE 25 MG TAB PER TUBE SCH ×3 (08:15→21:56)
[2017-11-12] MEDS: Apixaban 5 MG TAB PER TUBE SCH ×2 (08:15→21:55)
[2017-11-12] MEDS: Carvedilol 6.25 MG TAB PER TUBE SCH ×2 (08:16→16:26)
[2017-11-12] MEDS: Finasteride 5 MG TAB FS SCH (08:16)
[2017-11-12] MEDS: Lisinopril 20 MG TAB PER TUBE SCH (08:16)
[2017-11-12] MEDS: Aspirin 81 mg Enteric Coated Tablet PER TUBE SCH (08:16)
[2017-11-12] MEDS: Famotidine 20 MG TAB PER TUBE SCH ×2 (08:16→21:55)
[2017-11-12] MEDS: Amlodipine 10 MG TAB PER TUBE SCH (08:16)
[2017-11-12] MEDS: Ondansetron HCl/PF 4 MG/2 ML Vial IVP PRN (11:16)
--- NOTE | 2017-11-12 12:43 | PDOC.PN ---
- Subjective Encounter Start Date: 11/12/17 Encounter Start Time: 12:40 Subjective: f/u for ischemic CVA with aphasia, dysphagia and L hemiparesis. Receiving -: Glucerna 1.2, 5 cans daily. Increased throat secretions and using suction -: at bedside. - Objective Resuscitation Status: Resuscitation Status FULL:Full Resuscitation MAR Reviewed: Yes Vital Signs & Weight: Vital Signs (12 hours) Temp Pulse Resp BP BP Pulse Ox 11/12/17 12:00 97.3 F L 64 20 112/64 94 L 11/12/17 08:16 60 150/75 H 11/12/17 08:15 60 11/12/17 08:00 98.4 F 59 L 20 143/73 H 95 11/12/17 04:00 98.1 F 60 18 122/68 93 L Weight Admit Weight 176 lb 6.4 oz Weight 176 lb 6.4 oz I&O: 11/11/17 11/12/17 11/13/17 06:59 06:59 06:59 Intake Total 2022 2436 610 Balance 2022 2436 610 Result Diagrams: 11/11/17 05:27 11/11/17 05:27 Additional Labs: Accuchecks 11/12/17 11/12/17 11/12/17 12:24 05:46 00:04 POC Glucose 159 H 145 H 132 H 11/11/17 18:25 POC Glucose 128 H EKG Reviewed by me: Yes (Tele - SR) Phys Exam - Physical Examination Constitutional: NAD alert, nods to questions HEENT: PERRLA, sclera anicteric, oral pharynx no lesions Neck: no nodes, no JVD, supple, full ROM Respiratory: no wheezing, no rales, no rhonchi, clear to auscultation bilateral S1, S2 Cardiovascular: RRR, no significant murmur, no rub, gallop PEG site CDI Gastrointestinal: soft, non-tender, no distention, positive bowel sounds Musculoskeletal: no edema, pulses present L hemiparesis, expressive aphasia, dysphagia Skin: no rash, normal turgor, cap refill <2 seconds Dx/Plan (1) Acute CVA (cerebrovascular accident) Code(s): I63.9 - CEREBRAL INFARCTION, UNSPECIFIED Status: Acute Comment: 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, continue ASA, Eliquis (2) Hypokalemia Code(s): E87.6 - HYPOKALEMIA Status: Acute Comment: Improved, continue KCL replacement as clinically indicated (3) Diabetes type 2, controlled Code(s): E11.9 - TYPE 2 DIABETES MELLITUS WITHOUT COMPLICATIONS Status: Chronic Comment: Diet managed, serial accuchecks (4) Dyslipidemia Code(s): E78.5 - HYPERLIPIDEMIA, UNSPECIFIED Status: Chronic Comment: Continue Lipitor 40mg HS (5) Tobacco abuse Code(s): Z72.0 - TOBACCO USE Status: Chronic Comment: Tobacco cessation resources (6) Dysphagia Code(s): R13.10 - DYSPHAGIA, UNSPECIFIED Status: Acute Qualifiers: Dysphagia type: oropharyngeal phase Qualified Code(s): R13.12 - Dysphagia, oropharyngeal phase Comment: s/p PEG tube with nutritional support with bolus feeds - Plan PT/OT, licensed clinical social worker, speech therapy, out of bed/ambulate, DVT proph w/SCDs Stable overall -: Add Scopolamine 1.5mg TD -: Continue ASA/Eliquis -: CM assisting with options for SNF, limited due to financial constraints -: Nutritional support with Glucerna 1.2 bolus feeds * D/C Rocephin
[2017-11-12] MEDS: Scopolamine 1.5 mg/72 hour Patch TD SCH (12:54)
[2017-11-12] MEDS: Milk Of Magnesia 30 ML UDCUP PER TUBE PRN (16:26)
--- NOTE | 2017-11-12 17:29 | EKG ---
Test Reason : Blood Pressure : / mmHG Vent. Rate : 062 BPM Atrial Rate : 062 BPM P-R Int : 132 ms QRS Dur : 074 ms QT Int : 422 ms P-R-T Axes : 044 -11 045 degrees QTc Int : 428 ms Normal sinus rhythm Normal ECG Confirmed by PATRICIA OLIVEIRA, JAIRO Cantrell ([id number]), communications editor ZOYA MARIE ([id number]) on 11/12/2017 5:28:28 PM Referred By: Confirmed By:JAIRO GOMEZ MD
[2017-11-12] MEDS: Atorvastatin Calcium 40 MG TAB PER TUBE SCH (21:55)
[2017-11-12] MEDS: Senokot 8.6 MG TAB PER TUBE PRN (21:56)
[2017-11-13 04:57] LABS: Hemoglobin 13.9 g/dL (14.0-18.0); Platelet Count 392 thou/uL (130-400)
[2017-11-13 05:08] LABS: Calc. Creatinine Clearance 118 mL/min (70-130); Estimated GFR-MDRD Greater than 90
[2017-11-13] MEDS ORDERED: Fleet Enema 133 ML BOT FS PRN (08:28)
[2017-11-13] MEDS: hydrALAZINE 25 MG TAB PER TUBE SCH ×3 (09:36→21:16)
[2017-11-13] MEDS: Finasteride 5 MG TAB FS SCH (09:36)
[2017-11-13] MEDS: Carvedilol 6.25 MG TAB PER TUBE SCH ×2 (09:36→16:52)
[2017-11-13] MEDS: Apixaban 5 MG TAB PER TUBE SCH ×2 (09:37→21:15)
[2017-11-13] MEDS: Amlodipine 10 MG TAB PER TUBE SCH (09:37)
[2017-11-13] MEDS: Famotidine 20 MG TAB PER TUBE SCH ×2 (09:37→21:16)
[2017-11-13] MEDS: Aspirin 81 mg Enteric Coated Tablet PER TUBE SCH (09:37)
[2017-11-13] MEDS: Lisinopril 20 MG TAB PER TUBE SCH (09:37)
[2017-11-13] MEDS ORDERED: Fleet Enema 133 ML BOT PR SCH (10:00)
--- NOTE | 2017-11-13 10:22 | PDOC.PN ---
- Subjective Encounter Start Date: 11/13/17 Encounter Start Time: 07:10 -: old records requested/rev no Bm for last few days, Patient seen and examined. No overnight events - Objective Resuscitation Status: Resuscitation Status FULL:Full Resuscitation MAR Reviewed: Yes Vital Signs & Weight: Vital Signs (12 hours) Temp Pulse Resp BP BP BP Pulse Ox 11/13/17 09:37 122/70 11/13/17 09:36 122/70 11/13/17 07:44 97.5 F L 58 L 14 122/70 94 L 11/13/17 04:00 98.3 F 57 L 16 132/65 93 L 11/13/17 03:10 95 11/13/17 00:00 98.7 F 58 L 18 127/63 95 Weight Admit Weight 176 lb 6.4 oz Weight 176 lb 6.4 oz I&O: 11/12/17 11/13/17 11/14/17 06:59 06:59 06:59 Intake Total 2436 2820 Balance 2436 2820 Result Diagrams: 11/13/17 04:43 11/13/17 04:43 Additional Labs: Accuchecks 11/13/17 11/12/17 11/12/17 06:32 23:40 12:24 POC Glucose 134 H 137 H 159 H EKG Reviewed by me: Yes Phys Exam - Physical Examination Constitutional: NAD HEENT: PERRLA, moist MMs, sclera anicteric Neck: no JVD, supple Respiratory: no wheezing, no rales, no rhonchi Cardiovascular: RRR, no significant murmur, no rub Gastrointestinal: soft, non-tender, no distention, positive bowel sounds Musculoskeletal: no edema, pulses present left side weakness unchanged, aphasia Psychiatric: normal affect Skin: no rash, normal turgor Dx/Plan (1) Acute CVA (cerebrovascular accident) Code(s): I63.9 - CEREBRAL INFARCTION, UNSPECIFIED Status: Acute Comment: 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, continue ASA, Eliquis (2) Asymptomatic bacteriuria Code(s): R82.71 - BACTERIURIA Status: Acute (3) Hypertensive urgency Code(s): I16.0 - HYPERTENSIVE URGENCY Status: Acute (4) Hypokalemia Code(s): E87.6 - HYPOKALEMIA Status: Acute Comment: Improved, continue KCL replacement as clinically indicated (5) Diabetes type 2, controlled Code(s): E11.9 - TYPE 2 DIABETES MELLITUS WITHOUT COMPLICATIONS Status: Chronic Comment: Diet managed, serial accuchecks (6) Dyslipidemia Code(s): E78.5 - HYPERLIPIDEMIA, UNSPECIFIED Status: Chronic Comment: Continue Lipitor 40mg HS (7) Tobacco abuse Code(s): Z72.0 - TOBACCO USE Status: Chronic Comment: Tobacco cessation resources (8) Dysphagia Code(s): R13.10 - DYSPHAGIA, UNSPECIFIED Status: Acute Qualifiers: Dysphagia type: oropharyngeal phase Qualified Code(s): R13.12 - Dysphagia, oropharyngeal phase Comment: s/p PEG tube with nutritional support with bolus feeds - Plan cont current plan of care, plan discussed w/ family, PT/OT, social media specialist, speech therapy * fleet enema today * social work for his placement is challenging * medication reviewed as below * symptomatic treatment * spoke with family and updated plan. Review of Systems - Review of Systems ENT: negative: Ear Pain, Ear Discharge, Nose Pain, Nose Discharge, Nose Congestion, Mouth Pain, Mouth Swelling, Throat Pain, Throat Swelling, Other Respiratory: negative: Cough, Dry, Shortness of Breath, Hemoptysis, SOB with Excertion, Pleuritic Pain, Sputum, Wheezing Cardiovascular: negative: chest pain, palpitations, orthopnea, paroxysmal nocturnal dyspnea, edema, light headedness, other Gastrointestinal: Constipation. negative: Nausea, Vomiting, Abdominal Pain, Diarrhea, Melena, Hematochezia, Other Genitourinary: negative: Dysuria, Frequency, Incontinence, Hematuria, Retention , Other Musculoskeletal: negative: Neck Pain, Shoulder Pain, Arm Pain, Back Pain, Hand Pain, Leg Pain, Foot Pain, Other - Medications/Allergies Allergies/Adverse Reactions: Allergies Allergy/AdvReac Type Severity Reaction Status Date / Time No Known Drug Allergies Allergy Verified 11/04/17 21:12 Medications: Current Medications Acetaminophen (Tylenol) 650 mg PER TUBE Q4H PRN PRN Reason: Headache/Fever or Pain Last Admin: 11/10/17 16:05 Dose: 650 mg Hydrocodone Bitart/Acetaminophen ([place] 5/325) 1 tab PER TUBE Q4H PRN PRN Reason: Moderate Pain (4-6) Last Admin: 11/09/17 20:46 Dose: 1 tab Al Hydroxide/Mg Hydroxide (Maalox) 30 ml PER TUBE Q6H PRN PRN Reason: Heartburn or Indigestion Amlodipine Besylate (Norvasc) 10 mg PER TUBE DAILY [facility] Last Admin: 11/13/17 09:37 Dose: 10 mg Apixaban (Eliquis) 5 mg PER TUBE BID [facility] Last Admin: 11/13/17 09:37 Dose: 5 mg Artificial Tears (Tears Renewed 15ml Bottle) 0 drop EA EYE PRN PRN PRN Reason: Dry Eyes Aspirin (Ecotrin) 81 mg PER TUBE DAILY [facility] Last Admin: 11/13/17 09:37 Dose: 81 mg Atorvastatin Calcium (Lipitor) 40 mg PER TUBE HS [facility] Last Admin: 11/12/17 21:55 Dose: 40 mg Carvedilol (Coreg) 12.5 mg PER TUBE BID-[facility] Last Admin: 11/13/17 09:36 Dose: 12.5 mg Dextrose/Water (Dextrose 50%) 25 gm SLOW IVP PRN PRN PRN Reason: Hypoglycemia Famotidine (Pepcid) 20 mg PER TUBE BID [facility] Last Admin: 11/13/17 09:37 Dose: 20 mg Finasteride (Proscar) 5 mg FS DAILY [facility] Last Admin: 11/13/17 09:36 Dose: 5 mg Fluoxetine HCl (Prozac) 20 mg PER TUBE DAILY [facility] Glucagon (Glucagon) 1 mg IM PRN PRN PRN Reason: Hypoglycemia Guaifenesin (Robitussin Sf) 200 mg PER TUBE Q4H PRN PRN Reason: Cough Last Admin: 11/09/17 16:09 Dose: 200 mg Hydralazine HCl (Apresoline) 10 mg SLOW IVP Q2H PRN PRN Reason: Systolic BP > 180 Last Admin: 11/06/17 18:24 Dose: 10 mg Hydralazine HCl (Apresoline) 25 mg PER TUBE TID [facility] Last Admin: 11/13/17 09:36 Dose: 25 mg Dextrose/Water (D5w) 1,000 mls @ 0 mls/hr IV .Q0M PRN PRN Reason: Hypoglycemia Insulin Human Lispro (Humalog) 0 units SC .MODERATE SLIDING SC PRN PRN Reason: Moderate Correctional Scale Insulin Human Lispro (Humalog) 0 units SC .BEDTIME SLIDING SC PRN PRN Reason: Bedtime Correctional Scale Labetalol HCl (Normodyne) 10 mg SLOW IVP Q2H PRN PRN Reason: Systolic BP > 180 Last Admin: 11/07/17 23:58 Dose: 10 mg Lisinopril (Zestril) 40 mg PER TUBE DAILY [facility] Last Admin: 11/13/17 09:37 Dose: 40 mg Loperamide HCl (Imodium) 2 mg PER TUBE PRN PRN PRN Reason: Diarrhea/Loose Stools Loratadine (Claritin) 10 mg PER TUBE DAILYPRN PRN PRN Reason: Sinus Symptoms Magnesium Hydroxide (Milk Of Magnesium) 30 ml PER TUBE DAILYPRN PRN PRN Reason: Constipation Last Admin: 11/12/17 16:26 Dose: 30 ml Mineral Oil/White Petrolatum (Eucerin Cream) 0 gm TOP BIDPRN PRN PRN Reason: Dry Skin Nicotine (Nicoderm Patch) 21 mg TD DAILY PRN PRN Reason: Smoking Cessation Ondansetron HCl (Zofran) 4 mg IVP Q6H PRN PRN Reason: Nausea/Vomiting Last Admin: 11/12/17 11:16 Dose: 4 mg Ondansetron HCl (Zofran Odt) 4 mg PER TUBE Q6H PRN PRN Reason: Nausea/Vomiting Phenol (Chloraseptic [place] 180 Ml Bot) 0 ml PO PRN PRN PRN Reason: Sore Throat Scopolamine (Transderm Scop) 1.5 mg TD Q3D [facility] Last Admin: 11/12/17 12:54 Dose: 1.5 mg Senna (Senokot) 2 tab PER TUBE HSPRN PRN PRN Reason: Constipation Last Admin: 11/12/17 21:56 Dose: 2 tab Sodium Biphosphate/Sodium Phosphate (Fleet Enema) 133 ml FS DAILYPRN PRN PRN Reason: CONSTIPATION Sodium Biphosphate/Sodium Phosphate (Fleet Enema) 133 ml [place] ONE [place]ENNA Sodium Chloride ([place] Nasal [place] 0.65%) 0 ml EA NARE QIDPRN PRN PRN Reason: Nasal Congestion Sodium Chloride (Flush - Normal Saline) 10 ml IVF PRN PRN PRN Reason: Saline Flush Last Admin: 11/10/17 22:00 Dose: 10 ml Zolpidem Tartrate (Ambien) 5 mg PER TUBE HSPRN PRN PRN Reason: Insomnia
[2017-11-13] MEDS: HumaLOG 300 UNITS/3 ML VIAL SC PRN (12:41)
[2017-11-13] MEDS: Atorvastatin Calcium 40 MG TAB PER TUBE SCH (21:15)
[2017-11-14 05:25] LABS: #Basophils 0.1 thou/uL (0.0-0.2); #Eosinphils 0.9 thou/uL (0.0-0.7); #Lymphocytes 2.6 thou/uL (1.20-3.40); #Monocytes 1.4 thou/uL (0.11-0.59); #Neutrophils 8.3 thou/uL (1.40-6.50); %Basophils 0.6 % (0.0-1.0); %Eosinophils 7.1 % (0.0-10.0); %Lymphocytes 19.4 % (21.0-51.0); %Monocytes 10.7 % (0.0-10.0); %Neutrophils 62.2 % (42.0-75.0); Hemoglobin 14.7 g/dL (14.0-18.0); Mean Corpuscular Hemoglobin 29.5 pg (27.0-31.0); Mean Corpuscular Volume 89.3 fL (78.0-98.0); Mean Platelet Volume 7.9 fL (7.4-10.4); Platelet Count 406 thou/uL (130-400); RBC Distribution Width 11.6 % (11.5-14.5); Red Blood Cell (RBC) Count 4.98 mill/uL (4.70-6.10); White Blood Cell (WBC) Count 13.3 thou/uL (4.8-10.8)
[2017-11-14 05:32] LABS: Anion Gap 13 mmol/L (10-20); BUN (Urea Nitrogen) 23 mg/dL (8.4-25.7); Calc. Creatinine Clearance 117 mL/min (70-130); Calcium 9.9 mg/dL (7.8-10.44); Carbon Dioxide 27 mmol/L (22-29); Chloride 104 mmol/L (98-107); Estimated GFR-MDRD Greater than 90; Glucose 153 mg/dL (70-105); Potassium 4.2 mmol/L (3.5-5.1); Sodium 140 mmol/L (136-145)
[2017-11-14] MEDS: Carvedilol 6.25 MG TAB PER TUBE SCH ×2 (08:54→17:09)
[2017-11-14] MEDS: Lisinopril 20 MG TAB PER TUBE SCH (08:55)
[2017-11-14] MEDS: Famotidine 20 MG TAB PER TUBE SCH ×2 (08:55→22:19)
[2017-11-14] MEDS: Apixaban 5 MG TAB PER TUBE SCH ×2 (08:55→22:19)
[2017-11-14] MEDS: Finasteride 5 MG TAB FS SCH (08:56)
[2017-11-14] MEDS: hydrALAZINE 25 MG TAB PER TUBE SCH ×3 (08:56→22:20)
[2017-11-14] MEDS: Amlodipine 10 MG TAB PER TUBE SCH (08:56)
[2017-11-14] MEDS: Aspirin 81 mg Enteric Coated Tablet PER TUBE SCH (08:56)
[2017-11-14] MEDS: FLUoxetine HCl 20 MG CAP PER TUBE SCH (08:56)
--- NOTE | 2017-11-14 10:37 | PDOC.PN ---
- Subjective Encounter Start Date: 11/14/17 Encounter Start Time: 07:10 Patient seen and examined. No overnight events - Objective Resuscitation Status: Resuscitation Status FULL:Full Resuscitation MAR Reviewed: Yes Vital Signs & Weight: Vital Signs (12 hours) Temp Pulse Resp BP BP Pulse Ox 11/14/17 08:56 54 L 136/70 11/14/17 08:55 136/70 11/14/17 08:54 136/70 11/14/17 08:00 94 L 11/14/17 07:38 97.5 F L 54 L 18 136/70 94 L 11/14/17 04:00 97.9 F 65 16 145/81 H 96 11/14/17 00:00 98.1 F 62 16 139/63 95 Weight Admit Weight 176 lb 6.4 oz Weight 176 lb 6.4 oz I&O: 11/13/17 11/14/17 11/15/17 06:59 06:59 06:59 Intake Total 2820 5098 590 Balance 2820 5098 590 Result Diagrams: 11/14/17 04:40 11/14/17 04:40 Additional Labs: Accuchecks 11/14/17 11/14/17 11/13/17 10:28 06:29 20:18 POC Glucose 213 H 123 H 145 H 11/13/17 11/13/17 16:58 11:49 POC Glucose 137 H 171 H EKG Reviewed by me: Yes Phys Exam - Physical Examination Constitutional: NAD HEENT: PERRLA, moist MMs, sclera anicteric Neck: no JVD, supple Respiratory: no wheezing, no rales, no rhonchi Cardiovascular: RRR, no significant murmur, no rub Gastrointestinal: soft, non-tender, no distention, positive bowel sounds Musculoskeletal: no edema, pulses present Neurological: non-focal, normal sensation Lymphatic: no nodes Psychiatric: normal affect Skin: no rash, normal turgor Dx/Plan (1) Acute CVA (cerebrovascular accident) Code(s): I63.9 - CEREBRAL INFARCTION, UNSPECIFIED Status: Acute Comment: 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, continue ASA, Eliquis (2) Asymptomatic bacteriuria Code(s): R82.71 - BACTERIURIA Status: Acute (3) Hypertensive urgency Code(s): I16.0 - HYPERTENSIVE URGENCY Status: Acute (4) Hypokalemia Code(s): E87.6 - HYPOKALEMIA Status: Acute Comment: Improved, continue KCL replacement as clinically indicated (5) Diabetes type 2, controlled Code(s): E11.9 - TYPE 2 DIABETES MELLITUS WITHOUT COMPLICATIONS Status: Chronic Comment: Diet managed, serial accuchecks (6) Dyslipidemia Code(s): E78.5 - HYPERLIPIDEMIA, UNSPECIFIED Status: Chronic Comment: Continue Lipitor 40mg HS (7) Tobacco abuse Code(s): Z72.0 - TOBACCO USE Status: Chronic Comment: Tobacco cessation resources (8) Dysphagia Code(s): R13.10 - DYSPHAGIA, UNSPECIFIED Status: Acute Qualifiers: Dysphagia type: oropharyngeal phase Qualified Code(s): R13.12 - Dysphagia, oropharyngeal phase Comment: s/p PEG tube with nutritional support with bolus feeds - Plan cont current plan of care, plan discussed w/ family, PT/OT, 7th grade social studies teacher, speech therapy * medication reviewed as below * symptomatic treatment * tube feeding as tolerated * placement is main issue at this point. Review of Systems - Review of Systems Other: not reliable due to aphasia - Medications/Allergies Allergies/Adverse Reactions: Allergies Allergy/AdvReac Type Severity Reaction Status Date / Time No Known Drug Allergies Allergy Verified 11/04/17 21:12 Medications: Current Medications Acetaminophen (Tylenol) 650 mg PER TUBE Q4H PRN PRN Reason: Headache/Fever or Pain Last Admin: 11/10/17 16:05 Dose: 650 mg Hydrocodone Bitart/Acetaminophen ([place] 5/325) 1 tab PER TUBE Q4H PRN PRN Reason: Moderate Pain (4-6) Last Admin: 11/09/17 20:46 Dose: 1 tab Al Hydroxide/Mg Hydroxide (Maalox) 30 ml PER TUBE Q6H PRN PRN Reason: Heartburn or Indigestion Amlodipine Besylate (Norvasc) 10 mg PER TUBE DAILY [facility] [place] Last Admin: 11/14/17 08:56 Dose: 10 mg Apixaban (Eliquis) 5 mg PER TUBE BID [facility] Last Admin: 11/14/17 08:55 Dose: 5 mg Artificial Tears (Tears Renewed 15ml Bottle) 0 drop EA EYE PRN PRN PRN Reason: Dry Eyes Aspirin (Ecotrin) 81 mg PER TUBE DAILY [facility] [place] Last Admin: 11/14/17 08:56 Dose: 81 mg Atorvastatin Calcium (Lipitor) 40 mg PER TUBE HS [facility] [place] Last Admin: 11/13/17 21:15 Dose: 40 mg Carvedilol (Coreg) 12.5 mg PER TUBE BID-[facility] Last Admin: 11/14/17 08:54 Dose: 12.5 mg Dextrose/Water (Dextrose 50%) 25 gm SLOW IVP PRN PRN PRN Reason: Hypoglycemia Famotidine (Pepcid) 20 mg PER TUBE BID [facility] [place] Last Admin: 11/14/17 08:55 Dose: 20 mg Finasteride (Proscar) 5 mg FS DAILY [facility] [place] Last Admin: 11/14/17 08:56 Dose: 5 mg Fluoxetine HCl (Prozac) 20 mg PER TUBE DAILY [facility] [place] Last Admin: 11/14/17 08:56 Dose: 20 mg Glucagon (Glucagon) 1 mg IM PRN PRN PRN Reason: Hypoglycemia Guaifenesin (Robitussin Sf) 200 mg PER TUBE Q4H PRN PRN Reason: Cough Last Admin: 11/09/17 16:09 Dose: 200 mg Hydralazine HCl (Apresoline) 10 mg SLOW IVP Q2H PRN PRN Reason: Systolic BP > 180 Last Admin: 11/06/17 18:24 Dose: 10 mg Hydralazine HCl (Apresoline) 25 mg PER TUBE TID [facility] [place] Last Admin: 11/14/17 08:56 Dose: 25 mg Dextrose/Water (D5w) 1,000 mls @ 0 mls/hr IV .Q0M PRN PRN Reason: Hypoglycemia Insulin Human Lispro (Humalog) 0 units SC .MODERATE SLIDING SC PRN PRN Reason: Moderate Correctional Scale Last Admin: 11/13/17 12:41 Dose: 2 unit Insulin Human Lispro (Humalog) 0 units SC .BEDTIME SLIDING SC PRN PRN Reason: Bedtime Correctional Scale Labetalol HCl (Normodyne) 10 mg SLOW IVP Q2H PRN PRN Reason: Systolic BP > 180 Last Admin: 11/07/17 23:58 Dose: 10 mg Lisinopril (Zestril) 40 mg PER TUBE DAILY [facility] [place] Last Admin: 11/14/17 08:55 Dose: 40 mg Loperamide HCl (Imodium) 2 mg PER TUBE PRN PRN PRN Reason: Diarrhea/Loose Stools Loratadine (Claritin) 10 mg PER TUBE DAILYPRN PRN PRN Reason: Sinus Symptoms Magnesium Hydroxide (Milk Of Magnesium) 30 ml PER TUBE DAILYPRN PRN PRN Reason: Constipation Last Admin: 11/12/17 16:26 Dose: 30 ml Mineral Oil/White Petrolatum (Eucerin Cream) 0 gm TOP BIDPRN PRN PRN Reason: Dry Skin Nicotine (Nicoderm Patch) 21 mg TD DAILY PRN PRN Reason: Smoking Cessation Ondansetron HCl (Zofran) 4 mg IVP Q6H PRN PRN Reason: Nausea/Vomiting Last Admin: 11/12/17 11:16 Dose: 4 mg Ondansetron HCl (Zofran Odt) 4 mg PER TUBE Q6H PRN PRN Reason: Nausea/Vomiting Phenol (Chloraseptic [place] 180 Ml Bot) 0 ml PO PRN PRN PRN Reason: Sore Throat Scopolamine (Transderm Scop) 1.5 mg TD Q3D [facility] Last Admin: 11/12/17 12:54 Dose: 1.5 mg Senna (Senokot) 2 tab PER TUBE HSPRN PRN PRN Reason: Constipation Last Admin: 11/12/17 21:56 Dose: 2 tab Sodium Biphosphate/Sodium Phosphate (Fleet Enema) 133 ml FS DAILYPRN PRN PRN Reason: CONSTIPATION Last Admin: 11/13/17 13:35 Dose: 133 ml Sodium Chloride ([place] Nasal [place] 0.65%) 0 ml EA NARE QIDPRN PRN PRN Reason: Nasal Congestion Sodium Chloride (Flush - Normal Saline) 10 ml IVF PRN PRN PRN Reason: Saline Flush Last Admin: 11/10/17 22:00 Dose: 10 ml Zolpidem Tartrate (Ambien) 5 mg PER TUBE HSPRN PRN PRN Reason: Insomnia
[2017-11-14] MEDS: HumaLOG 300 UNITS/3 ML VIAL SC PRN (11:52)
[2017-11-14] MEDS: Acetaminophen 325 MG TAB PER TUBE PRN (13:05)
[2017-11-14] MEDS: Atorvastatin Calcium 40 MG TAB PER TUBE SCH (22:19)
[2017-11-15 05:01] LABS: Hemoglobin 14.4 g/dL (14.0-18.0); Platelet Count 399 thou/uL (130-400)
[2017-11-15 05:16] LABS: Calc. Creatinine Clearance 112 mL/min (70-130); Estimated GFR-MDRD Greater than 90
[2017-11-15] MEDS: hydrALAZINE 25 MG TAB PER TUBE SCH ×3 (08:33→20:55)
[2017-11-15] MEDS: Finasteride 5 MG TAB FS SCH (08:33)
[2017-11-15] MEDS: FLUoxetine HCl 20 MG CAP PER TUBE SCH (08:34)
[2017-11-15] MEDS: Lisinopril 20 MG TAB PER TUBE SCH (08:34)
[2017-11-15] MEDS: Aspirin 81 mg Enteric Coated Tablet PER TUBE SCH (08:34)
[2017-11-15] MEDS: Amlodipine 10 MG TAB PER TUBE SCH (08:34)
[2017-11-15] MEDS: Carvedilol 6.25 MG TAB PER TUBE SCH ×2 (08:34→16:15)
[2017-11-15] MEDS: Famotidine 20 MG TAB PER TUBE SCH ×2 (08:34→20:56)
[2017-11-15] MEDS: Apixaban 5 MG TAB PER TUBE SCH ×2 (08:34→20:55)
--- NOTE | 2017-11-15 10:39 | PDOC.PN ---
- Subjective Encounter Start Date: 11/15/17 Encounter Start Time: 09:30 Patient seen and examined. No overnight events - Objective Resuscitation Status: Resuscitation Status FULL:Full Resuscitation MAR Reviewed: Yes Vital Signs & Weight: Vital Signs (12 hours) Temp Pulse Resp BP BP Pulse Ox 11/15/17 08:34 59 L 141/75 H 11/15/17 08:33 59 L 11/15/17 08:30 97.7 F 71 18 154/76 H 93 L 11/15/17 04:00 98.0 F 59 L 18 134/78 93 L 11/15/17 00:00 98.0 F 61 16 118/56 L 92 L Weight Admit Weight 176 lb 6.4 oz Weight 176 lb 6.4 oz I&O: 11/14/17 11/15/17 11/16/17 06:59 06:59 06:59 Intake Total 5098 2230 590 Balance 5098 2230 590 Result Diagrams: 11/15/17 04:31 11/15/17 04:31 Additional Labs: Accuchecks 11/15/17 11/14/17 11/14/17 05:34 21:23 16:57 POC Glucose 138 H 203 H 114 H EKG Reviewed by me: Yes Phys Exam - Physical Examination Constitutional: NAD HEENT: PERRLA, moist MMs, sclera anicteric Neck: no JVD, supple Respiratory: no wheezing, no rales, no rhonchi Cardiovascular: RRR, no significant murmur, no rub Gastrointestinal: soft, non-tender, no distention, positive bowel sounds peg in place Musculoskeletal: no edema, pulses present left side weakness and aphasia unchanged Lymphatic: no nodes Psychiatric: normal affect Skin: no rash, normal turgor Dx/Plan (1) Acute CVA (cerebrovascular accident) Code(s): I63.9 - CEREBRAL INFARCTION, UNSPECIFIED Status: Acute Comment: 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, continue ASA, Eliquis (2) Asymptomatic bacteriuria Code(s): R82.71 - BACTERIURIA Status: Acute (3) Hypertensive urgency Code(s): I16.0 - HYPERTENSIVE URGENCY Status: Acute (4) Hypokalemia Code(s): E87.6 - HYPOKALEMIA Status: Acute Comment: Improved, continue KCL replacement as clinically indicated (5) Diabetes type 2, controlled Code(s): E11.9 - TYPE 2 DIABETES MELLITUS WITHOUT COMPLICATIONS Status: Chronic Comment: Diet managed, serial accuchecks (6) Dyslipidemia Code(s): E78.5 - HYPERLIPIDEMIA, UNSPECIFIED Status: Chronic Comment: Continue Lipitor 40mg HS (7) Tobacco abuse Code(s): Z72.0 - TOBACCO USE Status: Chronic Comment: Tobacco cessation resources (8) Dysphagia Code(s): R13.10 - DYSPHAGIA, UNSPECIFIED Status: Acute Qualifiers: Dysphagia type: oropharyngeal phase Qualified Code(s): R13.12 - Dysphagia, oropharyngeal phase Comment: s/p PEG tube with nutritional support with bolus feeds - Plan cont current plan of care, plan discussed w/ family, PT/OT, director social service, speech therapy * medication reviewed as below * symptomatic treatment * discussed with daughter and updated plan * await placement * supportive care * tube feeding. Review of Systems - Review of Systems Other: not reliable due to aphasia - Medications/Allergies Allergies/Adverse Reactions: Allergies Allergy/AdvReac Type Severity Reaction Status Date / Time No Known Drug Allergies Allergy Verified 11/04/17 21:12 Medications: Current Medications Acetaminophen (Tylenol) 650 mg PER TUBE Q4H PRN PRN Reason: Headache/Fever or Pain Last Admin: 11/14/17 13:05 Dose: 650 mg Hydrocodone Bitart/Acetaminophen ([place] 5/325) 1 tab PER TUBE Q4H PRN PRN Reason: Moderate Pain (4-6) Last Admin: 11/09/17 20:46 Dose: 1 tab Al Hydroxide/Mg Hydroxide (Maalox) 30 ml PER TUBE Q6H PRN PRN Reason: Heartburn or Indigestion Amlodipine Besylate (Norvasc) 10 mg PER TUBE DAILY [facility] Last Admin: 11/15/17 08:34 Dose: 10 mg Apixaban (Eliquis) 5 mg PER TUBE BID [facility] Last Admin: 11/15/17 08:34 Dose: 5 mg Artificial Tears (Tears Renewed 15ml Bottle) 0 drop EA EYE PRN PRN PRN Reason: Dry Eyes Aspirin (Ecotrin) 81 mg PER TUBE DAILY [facility] Last Admin: 11/15/17 08:34 Dose: 81 mg Atorvastatin Calcium (Lipitor) 40 mg PER TUBE HS [facility] Last Admin: 11/14/17 22:19 Dose: 40 mg Carvedilol (Coreg) 12.5 mg PER TUBE BID[facility] Last Admin: 11/15/17 08:34 Dose: 12.5 mg Dextrose/Water (Dextrose 50%) 25 gm SLOW IVP PRN PRN PRN Reason: Hypoglycemia Famotidine (Pepcid) 20 mg PER TUBE BID [facility] Last Admin: 11/15/17 08:34 Dose: 20 mg Finasteride (Proscar) 5 mg FS DAILY [facility] Last Admin: 11/15/17 08:33 Dose: 5 mg Fluoxetine HCl (Prozac) 20 mg PER TUBE DAILY [facility] Last Admin: 11/15/17 08:34 Dose: 20 mg Glucagon (Glucagon) 1 mg IM PRN PRN PRN Reason: Hypoglycemia Guaifenesin (Robitussin Sf) 200 mg PER TUBE Q4H PRN PRN Reason: Cough Last Admin: 11/09/17 16:09 Dose: 200 mg Hydralazine HCl (Apresoline) 10 mg SLOW IVP Q2H PRN PRN Reason: Systolic BP > 180 Last Admin: 11/06/17 18:24 Dose: 10 mg Hydralazine HCl (Apresoline) 25 mg PER TUBE TID [facility] Last Admin: 11/15/17 08:33 Dose: 25 mg Dextrose/Water (D5w) 1,000 mls @ 0 mls/hr IV .Q0M PRN PRN Reason: Hypoglycemia Insulin Human Lispro (Humalog) 0 units SC .MODERATE SLIDING SC PRN PRN Reason: Moderate Correctional Scale Last Admin: 11/14/17 11:52 Dose: 4 unit Insulin Human Lispro (Humalog) 0 units SC .BEDTIME SLIDING SC PRN PRN Reason: Bedtime Correctional Scale Labetalol HCl (Normodyne) 10 mg SLOW IVP Q2H PRN PRN Reason: Systolic BP > 180 Last Admin: 11/07/17 23:58 Dose: 10 mg Lisinopril (Zestril) 40 mg PER TUBE DAILY [facility] Last Admin: 11/15/17 08:34 Dose: 40 mg Loperamide HCl (Imodium) 2 mg PER TUBE PRN PRN PRN Reason: Diarrhea/Loose Stools Loratadine (Claritin) 10 mg PER TUBE DAILYPRN PRN PRN Reason: Sinus Symptoms Magnesium Hydroxide (Milk Of Magnesium) 30 ml PER TUBE DAILYPRN PRN PRN Reason: Constipation Last Admin: 11/12/17 16:26 Dose: 30 ml Mineral Oil/White Petrolatum (Eucerin Cream) 0 gm TOP BIDPRN PRN PRN Reason: Dry Skin Nicotine (Nicoderm Patch) 21 mg TD DAILY PRN PRN Reason: Smoking Cessation Ondansetron HCl (Zofran) 4 mg IVP Q6H PRN PRN Reason: Nausea/Vomiting Last Admin: 11/12/17 11:16 Dose: 4 mg Ondansetron HCl (Zofran Odt) 4 mg PER TUBE Q6H PRN PRN Reason: Nausea/Vomiting Phenol (Chloraseptic [place] 180 Ml Bot) 0 ml PO PRN PRN PRN Reason: Sore Throat Scopolamine (Transderm Scop) 1.5 mg TD Q3D [facility] Last Admin: 11/12/17 12:54 Dose: 1.5 mg Senna (Senokot) 2 tab PER TUBE HSPRN PRN PRN Reason: Constipation Last Admin: 11/12/17 21:56 Dose: 2 tab Sodium Biphosphate/Sodium Phosphate (Fleet Enema) 133 ml FS DAILYPRN PRN PRN Reason: CONSTIPATION Last Admin: 11/13/17 13:35 Dose: 133 ml Sodium Chloride ([place] Nasal [place] 0.65%) 0 ml EA NARE QIDPRN PRN PRN Reason: Nasal Congestion Sodium Chloride (Flush - Normal Saline) 10 ml IVF PRN PRN PRN Reason: Saline Flush Last Admin: 11/10/17 22:00 Dose: 10 ml Zolpidem Tartrate (Ambien) 5 mg PER TUBE HSPRN PRN PRN Reason: Insomnia
[2017-11-15] MEDS: HumaLOG 300 UNITS/3 ML VIAL SC PRN (12:29)
[2017-11-15] MEDS: Scopolamine 1.5 mg/72 hour Patch TD SCH (12:30)
[2017-11-15] MEDS: Atorvastatin Calcium 40 MG TAB PER TUBE SCH (20:55)
[2017-11-16] MEDS: Carvedilol 6.25 MG TAB PER TUBE SCH ×2 (08:36→16:09)
[2017-11-16] MEDS: FLUoxetine HCl 20 MG CAP PER TUBE SCH (08:37)
[2017-11-16] MEDS: Aspirin 81 mg Enteric Coated Tablet PER TUBE SCH (08:37)
[2017-11-16] MEDS: Apixaban 5 MG TAB PER TUBE SCH ×2 (08:37→21:03)
[2017-11-16] MEDS: Lisinopril 20 MG TAB PER TUBE SCH (08:37)
[2017-11-16] MEDS: Finasteride 5 MG TAB FS SCH (08:37)
[2017-11-16] MEDS: Famotidine 20 MG TAB PER TUBE SCH ×2 (08:37→21:02)
[2017-11-16] MEDS: hydrALAZINE 25 MG TAB PER TUBE SCH ×3 (08:37→21:02)
[2017-11-16] MEDS: Amlodipine 10 MG TAB PER TUBE SCH (08:37)
--- NOTE | 2017-11-16 09:26 | PDOC.PN ---
- Subjective Encounter Start Date: 11/16/17 Encounter Start Time: 07:00 Patient seen and examined. No new complaints. No overnight events - Objective Resuscitation Status: Resuscitation Status FULL:Full Resuscitation MAR Reviewed: Yes Vital Signs & Weight: Vital Signs (12 hours) Temp Pulse Resp BP BP BP Pulse Ox 11/16/17 08:37 60 136/73 11/16/17 08:36 136/73 11/16/17 07:55 98.6 F 60 14 136/73 92 L 11/16/17 04:00 98.0 F 61 16 133/71 93 L 11/16/17 00:00 97.6 F 64 16 146/67 H 92 L Weight Admit Weight 176 lb 6.4 oz Weight 176 lb 6.4 oz I&O: 11/15/17 11/16/17 11/17/17 06:59 06:59 06:59 Intake Total 2230 1916 584 Balance 2230 1916 584 Result Diagrams: 11/15/17 04:31 11/15/17 04:31 Additional Labs: Accuchecks 11/16/17 11/15/17 11/15/17 05:31 21:05 17:23 POC Glucose 133 H 171 H 131 H 11/15/17 11:09 POC Glucose 198 H EKG Reviewed by me: Yes (nsr) Phys Exam - Physical Examination Constitutional: NAD HEENT: PERRLA, moist MMs, sclera anicteric, oral pharynx no lesions Neck: no JVD, supple Respiratory: no wheezing, no rales, no rhonchi Cardiovascular: RRR, no significant murmur, no rub Gastrointestinal: soft, non-tender, no distention, positive bowel sounds Musculoskeletal: no edema, pulses present left side weakness, aphasia Psychiatric: normal affect, A&O x 3 Skin: no rash, normal turgor Dx/Plan (1) Acute CVA (cerebrovascular accident) Code(s): I63.9 - CEREBRAL INFARCTION, UNSPECIFIED Status: Acute Comment: 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, continue ASA, Eliquis (2) Asymptomatic bacteriuria Code(s): R82.71 - BACTERIURIA Status: Resolved (3) Hypertensive urgency Code(s): I16.0 - HYPERTENSIVE URGENCY Status: Resolved (4) Hypokalemia Code(s): E87.6 - HYPOKALEMIA Status: Resolved Comment: Improved, continue KCL replacement as clinically indicated (5) Diabetes type 2, controlled Code(s): E11.9 - TYPE 2 DIABETES MELLITUS WITHOUT COMPLICATIONS Status: Chronic Comment: Diet managed, serial accuchecks (6) Dyslipidemia Code(s): E78.5 - HYPERLIPIDEMIA, UNSPECIFIED Status: Chronic Comment: Continue Lipitor 40mg HS (7) Tobacco abuse Code(s): Z72.0 - TOBACCO USE Status: Chronic Comment: Tobacco cessation resources (8) Dysphagia Code(s): R13.10 - DYSPHAGIA, UNSPECIFIED Status: Acute Qualifiers: Dysphagia type: oropharyngeal phase Qualified Code(s): R13.12 - Dysphagia, oropharyngeal phase Comment: s/p PEG tube with nutritional support with bolus feeds - Plan cont current plan of care, PT/OT, social worker delinquency prevention, speech therapy * overall stable with current medication * he is tolerating tube feeding * will need snu placement * medication reviewed as below * symptomatic treatment. Review of Systems - Review of Systems ENT: negative: Ear Pain, Ear Discharge, Nose Pain, Nose Discharge, Nose Congestion, Mouth Pain, Mouth Swelling, Throat Pain, Throat Swelling, Other Respiratory: negative: Cough, Dry, Shortness of Breath, Hemoptysis, SOB with Excertion, Pleuritic Pain, Sputum, Wheezing Cardiovascular: negative: chest pain, palpitations, orthopnea, paroxysmal nocturnal dyspnea, edema, light headedness, other Gastrointestinal: negative: Nausea, Vomiting, Abdominal Pain, Diarrhea, Constipation, Melena, Hematochezia, Other Genitourinary: negative: Dysuria, Frequency, Incontinence, Hematuria, Retention , Other Musculoskeletal: negative: Neck Pain, Shoulder Pain, Arm Pain, Back Pain, Hand Pain, Leg Pain, Foot Pain, Other Skin: negative: Rash, Lesions, Marcelo, Bruising, Other - Medications/Allergies Allergies/Adverse Reactions: Allergies Allergy/AdvReac Type Severity Reaction Status Date / Time No Known Drug Allergies Allergy Verified 11/04/17 21:12 Medications: Current Medications Acetaminophen (Tylenol) 650 mg PER TUBE Q4H PRN PRN Reason: Headache/Fever or Pain Last Admin: 11/14/17 13:05 Dose: 650 mg Al Hydroxide/Mg Hydroxide (Maalox) 30 ml PER TUBE Q6H PRN PRN Reason: Heartburn or Indigestion Amlodipine Besylate (Norvasc) 10 mg PER TUBE DAILY [facility] Last Admin: 11/16/17 08:37 Dose: 10 mg Apixaban (Eliquis) 5 mg PER TUBE BID [facility] Last Admin: 11/16/17 08:37 Dose: 5 mg Artificial Tears (Tears Renewed 15ml Bottle) 0 drop EA EYE PRN PRN PRN Reason: Dry Eyes Aspirin (Ecotrin) 81 mg PER TUBE DAILY [facility] Last Admin: 11/16/17 08:37 Dose: 81 mg Atorvastatin Calcium (Lipitor) 40 mg PER TUBE HS [facility] Last Admin: 11/15/17 20:55 Dose: 40 mg Carvedilol (Coreg) 12.5 mg PER TUBE BID-[facility] Last Admin: 11/16/17 08:36 Dose: 12.5 mg Dextrose/Water (Dextrose 50%) 25 gm SLOW IVP PRN PRN PRN Reason: Hypoglycemia Famotidine (Pepcid) 20 mg PER TUBE BID [facility] Last Admin: 11/16/17 08:37 Dose: 20 mg Finasteride (Proscar) 5 mg FS DAILY [facility] Last Admin: 11/16/17 08:37 Dose: 5 mg Fluoxetine HCl (Prozac) 20 mg PER TUBE DAILY [facility] Last Admin: 11/16/17 08:37 Dose: 20 mg Glucagon (Glucagon) 1 mg IM PRN PRN PRN Reason: Hypoglycemia Guaifenesin (Robitussin Sf) 200 mg PER TUBE Q4H PRN PRN Reason: Cough Last Admin: 11/09/17 16:09 Dose: 200 mg Hydralazine HCl (Apresoline) 10 mg SLOW IVP Q2H PRN PRN Reason: Systolic BP > 180 Last Admin: 11/06/17 18:24 Dose: 10 mg Hydralazine HCl (Apresoline) 25 mg PER TUBE TID [facility] Last Admin: 11/16/17 08:37 Dose: 25 mg Dextrose/Water (D5w) 1,000 mls @ 0 mls/hr IV .Q0M PRN PRN Reason: Hypoglycemia Insulin Human Lispro (Humalog) 0 units SC .MODERATE SLIDING SC PRN PRN Reason: Moderate Correctional Scale Last Admin: 11/15/17 12:29 Dose: 2 unit Insulin Human Lispro (Humalog) 0 units SC .BEDTIME SLIDING SC PRN PRN Reason: Bedtime Correctional Scale Labetalol HCl (Normodyne) 10 mg SLOW IVP Q2H PRN PRN Reason: Systolic BP > 180 Last Admin: 11/07/17 23:58 Dose: 10 mg Lisinopril (Zestril) 40 mg PER TUBE DAILY [facility] Last Admin: 11/16/17 08:37 Dose: 40 mg Loperamide HCl (Imodium) 2 mg PER TUBE PRN PRN PRN Reason: Diarrhea/Loose Stools Loratadine (Claritin) 10 mg PER TUBE DAILYPRN PRN PRN Reason: Sinus Symptoms Magnesium Hydroxide (Milk Of Magnesium) 30 ml PER TUBE DAILYPRN PRN PRN Reason: Constipation Last Admin: 11/12/17 16:26 Dose: 30 ml Mineral Oil/White Petrolatum (Eucerin Cream) 0 gm TOP BIDPRN PRN PRN Reason: Dry Skin Nicotine (Nicoderm Patch) 21 mg TD DAILY PRN PRN Reason: Smoking Cessation Ondansetron HCl (Zofran) 4 mg IVP Q6H PRN PRN Reason: Nausea/Vomiting Last Admin: 11/12/17 11:16 Dose: 4 mg Ondansetron HCl (Zofran Odt) 4 mg PER TUBE Q6H PRN PRN Reason: Nausea/Vomiting Phenol (Chloraseptic [place] 180 Ml Bot) 0 ml PO PRN PRN PRN Reason: Sore Throat Scopolamine (Transderm Scop) 1.5 mg TD Q3D [facility] Last Admin: 11/15/17 12:30 Dose: 1.5 mg Senna (Senokot) 2 tab PER TUBE HSPRN PRN PRN Reason: Constipation Last Admin: 11/12/17 21:56 Dose: 2 tab Sodium Biphosphate/Sodium Phosphate (Fleet Enema) 133 ml FS DAILYPRN PRN PRN Reason: CONSTIPATION Last Admin: 11/13/17 13:35 Dose: 133 ml Sodium Chloride ([place] Nasal [place] 0.65%) 0 ml EA NARE QIDPRN PRN PRN Reason: Nasal Congestion Sodium Chloride (Flush - Normal Saline) 10 ml IVF PRN PRN PRN Reason: Saline Flush Last Admin: 11/10/17 22:00 Dose: 10 ml Zolpidem Tartrate (Ambien) 5 mg PER TUBE HSPRN PRN PRN Reason: Insomnia
[2017-11-16] MEDS: HumaLOG 300 UNITS/3 ML VIAL SC PRN (12:31)
[2017-11-16] MEDS: Senokot 8.6 MG TAB PER TUBE PRN (16:09)
[2017-11-16] MEDS: Atorvastatin Calcium 40 MG TAB PER TUBE SCH (21:02)
[2017-11-17 04:33] LABS: Hemoglobin 14.3 g/dL (14.0-18.0); Platelet Count 420 thou/uL (130-400)
[2017-11-17 05:15] LABS: Calc. Creatinine Clearance 108 mL/min (70-130); Estimated GFR-MDRD Greater than 90
--- NOTE | 2017-11-17 09:20 | PDOC.PN ---
- Subjective Encounter Start Date: 11/17/17 Encounter Start Time: 07:00 Patient seen and examined. No overnight events - Objective Resuscitation Status: Resuscitation Status FULL:Full Resuscitation MAR Reviewed: Yes Vital Signs & Weight: Vital Signs (12 hours) Temp Pulse Resp BP Pulse Ox 11/17/17 07:39 97.4 F L 61 18 126/74 90 L 11/17/17 04:00 98.6 F 61 18 139/79 95 11/16/17 23:55 97.7 F 62 19 120/66 95 Weight Admit Weight 176 lb 6.4 oz Weight 170 lb I&O: 11/16/17 11/17/17 11/18/17 06:59 06:59 06:59 Intake Total 1915 2098 Balance 1915 2098 Result Diagrams: 11/17/17 04:04 11/17/17 04:04 Additional Labs: Accuchecks 11/17/17 11/16/17 11/16/17 05:41 20:14 16:51 POC Glucose 134 H 145 H 151 H 11/16/17 11:38 POC Glucose 185 H EKG Reviewed by me: Yes (nsr) Phys Exam - Physical Examination Constitutional: NAD HEENT: PERRLA, moist MMs, sclera anicteric Neck: no JVD, supple Respiratory: no wheezing, no rales, no rhonchi Cardiovascular: RRR, no significant murmur, no rub Gastrointestinal: soft, non-tender, no distention, positive bowel sounds Musculoskeletal: no edema, pulses present left side Lymphatic: no nodes Psychiatric: normal affect, A&O x 3 Skin: no rash, normal turgor Dx/Plan (1) Acute CVA (cerebrovascular accident) Code(s): I63.9 - CEREBRAL INFARCTION, UNSPECIFIED Status: Acute Comment: 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, continue ASA, Eliquis (2) Diabetes type 2, controlled Code(s): E11.9 - TYPE 2 DIABETES MELLITUS WITHOUT COMPLICATIONS Status: Chronic Comment: Diet managed, serial accuchecks (3) Dyslipidemia Code(s): E78.5 - HYPERLIPIDEMIA, UNSPECIFIED Status: Chronic Comment: Continue Lipitor 40mg HS (4) Tobacco abuse Code(s): Z72.0 - TOBACCO USE Status: Chronic Comment: Tobacco cessation resources (5) Oropharyngeal dysphagia Code(s): R13.12 - DYSPHAGIA, OROPHARYNGEAL PHASE Status: Acute Comment: with PEG in place (6) Hypertension Code(s): I10 - ESSENTIAL (PRIMARY) HYPERTENSION Status: Chronic - Plan cont current plan of care, PT/OT, geriatric social worker, speech therapy * medication reviewed as below * symptomatic treatment * placement is main issue * Vitals stable Review of Systems - Review of Systems Eyes: negative: Pain, Vision Change, Conjunctivae Inflammation, Eyelid Inflammation, Redness, Other ENT: negative: Ear Pain, Ear Discharge, Nose Pain, Nose Discharge, Nose Congestion, Mouth Pain, Mouth Swelling, Throat Pain, Throat Swelling, Other Respiratory: negative: Cough, Dry, Shortness of Breath, Hemoptysis, SOB with Excertion, Pleuritic Pain, Sputum, Wheezing Cardiovascular: negative: chest pain, palpitations, orthopnea, paroxysmal nocturnal dyspnea, edema, light headedness, other Gastrointestinal: negative: Nausea, Vomiting, Abdominal Pain, Diarrhea, Constipation, Melena, Hematochezia, Other Genitourinary: negative: Dysuria, Frequency, Incontinence, Hematuria, Retention , Other Musculoskeletal: negative: Neck Pain, Shoulder Pain, Arm Pain, Back Pain, Hand Pain, Leg Pain, Foot Pain, Other Skin: negative: Rash, Lesions, Marcelo, Bruising, Other - Medications/Allergies Allergies/Adverse Reactions: Allergies Allergy/AdvReac Type Severity Reaction Status Date / Time No Known Drug Allergies Allergy Verified 11/04/17 21:12 Medications: Current Medications Acetaminophen (Tylenol) 650 mg PER TUBE Q4H PRN PRN Reason: Headache/Fever or Pain Last Admin: 11/14/17 13:05 Dose: 650 mg Al Hydroxide/Mg Hydroxide (Maalox) 30 ml PER TUBE Q6H PRN PRN Reason: Heartburn or Indigestion Last Admin: 11/16/17 12:56 Dose: 30 ml Amlodipine Besylate (Norvasc) 10 mg PER TUBE DAILY [facility] Last Admin: 11/16/17 08:37 Dose: 10 mg Apixaban (Eliquis) 5 mg PER TUBE BID [facility] Last Admin: 11/16/17 21:03 Dose: 5 mg Artificial Tears (Tears Renewed 15ml Bottle) 0 drop EA EYE PRN PRN PRN Reason: Dry Eyes Aspirin (Ecotrin) 81 mg PER TUBE DAILY [facility] Last Admin: 11/16/17 08:37 Dose: 81 mg Atorvastatin Calcium (Lipitor) 40 mg PER TUBE [facility] Last Admin: 11/16/17 21:02 Dose: 40 mg Carvedilol (Coreg) 12.5 mg PER TUBE BID[facility] Last Admin: 11/16/17 16:09 Dose: 12.5 mg Dextrose/Water (Dextrose 50%) 25 gm SLOW IVP PRN PRN PRN Reason: Hypoglycemia Famotidine (Pepcid) 20 mg PER TUBE BID [facility] Last Admin: 11/16/17 21:02 Dose: 20 mg Finasteride (Proscar) 5 mg FS DAILY [facility] Last Admin: 11/16/17 08:37 Dose: 5 mg Fluoxetine HCl (Prozac) 20 mg PER TUBE DAILY [facility] Last Admin: 11/16/17 08:37 Dose: 20 mg Glucagon (Glucagon) 1 mg IM PRN PRN PRN Reason: Hypoglycemia Guaifenesin (Robitussin Sf) 200 mg PER TUBE Q4H PRN PRN Reason: Cough Last Admin: 11/09/17 16:09 Dose: 200 mg Hydralazine HCl (Apresoline) 10 mg SLOW IVP Q2H PRN PRN Reason: Systolic BP > 180 Last Admin: 11/06/17 18:24 Dose: 10 mg Hydralazine HCl (Apresoline) 25 mg PER TUBE TID [facility] Last Admin: 11/16/17 21:02 Dose: 25 mg Dextrose/Water (D5w) 1,000 mls @ 0 mls/hr IV .Q0M PRN PRN Reason: Hypoglycemia Insulin Human Lispro (Humalog) 0 units SC .MODERATE SLIDING SC PRN PRN Reason: Moderate Correctional Scale Last Admin: 11/16/17 12:31 Dose: 2 unit Insulin Human Lispro (Humalog) 0 units SC .BEDTIME SLIDING SC PRN PRN Reason: Bedtime Correctional Scale Labetalol HCl (Normodyne) 10 mg SLOW IVP Q2H PRN PRN Reason: Systolic BP > 180 Last Admin: 11/07/17 23:58 Dose: 10 mg Lisinopril (Zestril) 40 mg PER TUBE DAILY [facility] Last Admin: 11/16/17 08:37 Dose: 40 mg Loperamide HCl (Imodium) 2 mg PER TUBE PRN PRN PRN Reason: Diarrhea/Loose Stools Loratadine (Claritin) 10 mg PER TUBE DAILYPRN PRN PRN Reason: Sinus Symptoms Magnesium Hydroxide (Milk Of Magnesium) 30 ml PER TUBE DAILYPRN PRN PRN Reason: Constipation Last Admin: 11/12/17 16:26 Dose: 30 ml Mineral Oil/White Petrolatum (Eucerin Cream) 0 gm TOP BIDPRN PRN PRN Reason: Dry Skin Nicotine (Nicoderm Patch) 21 mg TD DAILY PRN PRN Reason: Smoking Cessation Ondansetron HCl (Zofran) 4 mg IVP Q6H PRN PRN Reason: Nausea/Vomiting Last Admin: 11/12/17 11:16 Dose: 4 mg Ondansetron HCl (Zofran Odt) 4 mg PER TUBE Q6H PRN PRN Reason: Nausea/Vomiting Phenol (Chloraseptic [place] 180 Ml Bot) 0 ml PO PRN PRN PRN Reason: Sore Throat Scopolamine (Transderm Scop) 1.5 mg TD Q3D [facility] Last Admin: 11/15/17 12:30 Dose: 1.5 mg Senna (Senokot) 2 tab PER TUBE HSPRN PRN PRN Reason: Constipation Last Admin: 11/16/17 16:09 Dose: 2 tab Sodium Biphosphate/Sodium Phosphate (Fleet Enema) 133 ml FS DAILYPRN PRN PRN Reason: CONSTIPATION Last Admin: 11/13/17 13:35 Dose: 133 ml Sodium Chloride ([place] Nasal [place] 0.65%) 0 ml EA NARE QIDPRN PRN PRN Reason: Nasal Congestion Sodium Chloride (Flush - Normal Saline) 10 ml IVF PRN PRN PRN Reason: Saline Flush Last Admin: 11/10/17 22:00 Dose: 10 ml Zolpidem Tartrate (Ambien) 5 mg PER TUBE HSPRN PRN PRN Reason: Insomnia
[2017-11-17] MEDS: Lisinopril 20 MG TAB PER TUBE SCH (09:27)
[2017-11-17] MEDS: Carvedilol 6.25 MG TAB PER TUBE SCH ×2 (09:27→18:24)
[2017-11-17] MEDS: Finasteride 5 MG TAB FS SCH (09:28)
[2017-11-17] MEDS: hydrALAZINE 25 MG TAB PER TUBE SCH ×3 (09:28→21:18)
[2017-11-17] MEDS: Amlodipine 10 MG TAB PER TUBE SCH (09:28)
[2017-11-17] MEDS: Apixaban 5 MG TAB PER TUBE SCH ×2 (09:28→21:19)
[2017-11-17] MEDS: Famotidine 20 MG TAB PER TUBE SCH ×2 (09:29→21:19)
[2017-11-17] MEDS: Aspirin 81 mg Enteric Coated Tablet PER TUBE SCH (09:29)
[2017-11-17] MEDS: FLUoxetine HCl 20 MG CAP PER TUBE SCH (09:29)
[2017-11-17] MEDS: HumaLOG 300 UNITS/3 ML VIAL SC PRN (13:40)
[2017-11-17] MEDS: Atorvastatin Calcium 40 MG TAB PER TUBE SCH (21:18)
[2017-11-18] MEDS: Amlodipine 10 MG TAB PER TUBE SCH (11:48)
[2017-11-18] MEDS: Apixaban 5 MG TAB PER TUBE SCH ×2 (11:48→21:30)
[2017-11-18] MEDS: Carvedilol 6.25 MG TAB PER TUBE SCH ×2 (11:48→16:32)
[2017-11-18] MEDS: Finasteride 5 MG TAB FS SCH (11:49)
[2017-11-18] MEDS: FLUoxetine HCl 20 MG CAP PER TUBE SCH (11:49)
[2017-11-18] MEDS: Lisinopril 20 MG TAB PER TUBE SCH (11:49)
[2017-11-18] MEDS: hydrALAZINE 25 MG TAB PER TUBE SCH ×3 (11:49→21:31)
[2017-11-18] MEDS: Famotidine 20 MG TAB PER TUBE SCH ×2 (11:49→21:30)
[2017-11-18] MEDS: Aspirin 81 mg Enteric Coated Tablet PER TUBE SCH (11:49)
[2017-11-18] MEDS: Senokot 8.6 MG TAB PER TUBE PRN (11:50)
--- NOTE | 2017-11-18 14:41 | PDOC.PN ---
- Subjective Encounter Start Date: 11/18/17 Encounter Start Time: 07:30 Patient seen and examined. No new complaints. No overnight events - Objective Resuscitation Status: Resuscitation Status FULL:Full Resuscitation MAR Reviewed: Yes Vital Signs & Weight: Vital Signs (12 hours) Temp Pulse Pulse Pulse Resp BP BP 11/18/17 11:49 97.7 F 75 18 142/77 H 11/18/17 11:48 73 142/77 H 11/18/17 10:33 65 61 141/72 H 11/18/17 09:20 61 62 144/74 H 11/18/17 08:00 97.7 F 73 18 BP BP Pulse Ox 11/18/17 11:49 141/72 H 95 11/18/17 11:48 11/18/17 10:33 151/78 H 11/18/17 09:20 142/76 H 11/18/17 08:00 142/77 H 93 L Weight Admit Weight 176 lb 6.4 oz Weight 170 lb I&O: 11/17/17 11/18/17 11/19/17 06:59 06:59 06:59 Intake Total 2098 1931 337 Balance 2098 1931 337 Result Diagrams: 11/17/17 04:04 11/17/17 04:04 Additional Labs: Accuchecks 11/17/17 11/17/17 20:05 16:37 POC Glucose 122 H 132 H EKG Reviewed by me: Yes (nsr) Phys Exam - Physical Examination Constitutional: NAD HEENT: PERRLA, moist MMs, sclera anicteric Neck: no JVD, supple Respiratory: no wheezing, no rales, no rhonchi Cardiovascular: RRR, no significant murmur, no rub Gastrointestinal: soft, non-tender, no distention, positive bowel sounds Musculoskeletal: no edema, pulses present left side weakness, aphasia+ Lymphatic: no nodes Psychiatric: normal affect, A&O x 3 Skin: no rash, normal turgor Dx/Plan (1) Acute CVA (cerebrovascular accident) Code(s): I63.9 - CEREBRAL INFARCTION, UNSPECIFIED Status: Acute Comment: 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, continue ASA, Eliquis (2) Diabetes type 2, controlled Code(s): E11.9 - TYPE 2 DIABETES MELLITUS WITHOUT COMPLICATIONS Status: Chronic Comment: Diet managed, serial accuchecks (3) Dyslipidemia Code(s): E78.5 - HYPERLIPIDEMIA, UNSPECIFIED Status: Chronic Comment: Continue Lipitor 40mg HS (4) Tobacco abuse Code(s): Z72.0 - TOBACCO USE Status: Chronic Comment: Tobacco cessation resources (5) Oropharyngeal dysphagia Code(s): R13.12 - DYSPHAGIA, OROPHARYNGEAL PHASE Status: Acute Comment: with PEG in place (6) Hypertension Code(s): I10 - ESSENTIAL (PRIMARY) HYPERTENSION Status: Chronic - Plan cont current plan of care, PT/OT, social services manager * medication reviewed as below * symptomatic treatment * await placement * medically stable with current treatment as below. Review of Systems - Review of Systems ENT: negative: Ear Pain, Ear Discharge, Nose Pain, Nose Discharge, Nose Congestion, Mouth Pain, Mouth Swelling, Throat Pain, Throat Swelling, Other Respiratory: negative: Cough, Dry, Shortness of Breath, Hemoptysis, SOB with Excertion, Pleuritic Pain, Sputum, Wheezing Cardiovascular: negative: chest pain, palpitations, orthopnea, paroxysmal nocturnal dyspnea, edema, light headedness, other Gastrointestinal: negative: Nausea, Vomiting, Abdominal Pain, Diarrhea, Constipation, Melena, Hematochezia, Other Genitourinary: negative: Dysuria, Frequency, Incontinence, Hematuria, Retention , Other Musculoskeletal: negative: Neck Pain, Shoulder Pain, Arm Pain, Back Pain, Hand Pain, Leg Pain, Foot Pain, Other Neurological: Weakness, Change in Speech. negative: Numbness, Incoordination, Confusion, Seizures, Other - Medications/Allergies Allergies/Adverse Reactions: Allergies Allergy/AdvReac Type Severity Reaction Status Date / Time No Known Drug Allergies Allergy Verified 11/04/17 21:12 Medications: Current Medications Acetaminophen (Tylenol) 650 mg PER TUBE Q4H PRN PRN Reason: Headache/Fever or Pain Last Admin: 11/14/17 13:05 Dose: 650 mg Al Hydroxide/Mg Hydroxide (Maalox) 30 ml PER TUBE Q6H PRN PRN Reason: Heartburn or Indigestion Last Admin: 11/16/17 12:56 Dose: 30 ml Amlodipine Besylate (Norvasc) 10 mg PER TUBE DAILY [facility] Last Admin: 11/18/17 11:48 Dose: 10 mg Apixaban (Eliquis) 5 mg PER TUBE BID [facility] Last Admin: 11/18/17 11:48 Dose: 5 mg Artificial Tears (Tears Renewed 15ml Bottle) 0 drop EA EYE PRN PRN PRN Reason: Dry Eyes Aspirin (Ecotrin) 81 mg PER TUBE DAILY [facility] Last Admin: 11/18/17 11:49 Dose: 81 mg Atorvastatin Calcium (Lipitor) 40 mg PER TUBE HS [facility] Last Admin: 11/17/17 21:18 Dose: 40 mg Carvedilol (Coreg) 12.5 mg PER TUBE BID-WM [facility] Last Admin: 11/18/17 11:48 Dose: 12.5 mg Dextrose/Water (Dextrose 50%) 25 gm SLOW IVP PRN PRN PRN Reason: Hypoglycemia Famotidine (Pepcid) 20 mg PER TUBE BID [facility] Last Admin: 11/18/17 11:49 Dose: 20 mg Finasteride (Proscar) 5 mg FS DAILY [facility] Last Admin: 11/18/17 11:49 Dose: 5 mg Fluoxetine HCl (Prozac) 20 mg PER TUBE DAILY [facility] Last Admin: 11/18/17 11:49 Dose: 20 mg Glucagon (Glucagon) 1 mg IM PRN PRN PRN Reason: Hypoglycemia Guaifenesin (Robitussin Sf) 200 mg PER TUBE Q4H PRN PRN Reason: Cough Last Admin: 11/09/17 16:09 Dose: 200 mg Hydralazine HCl (Apresoline) 10 mg SLOW IVP Q2H PRN PRN Reason: Systolic BP > 180 Last Admin: 11/06/17 18:24 Dose: 10 mg Hydralazine HCl (Apresoline) 25 mg PER TUBE TID [facility] Last Admin: 11/18/17 11:49 Dose: 25 mg Dextrose/Water (D5w) 1,000 mls @ 0 mls/hr IV .Q0M PRN PRN Reason: Hypoglycemia Insulin Human Lispro (Humalog) 0 units SC .MODERATE SLIDING SC PRN PRN Reason: Moderate Correctional Scale Last Admin: 11/17/17 13:40 Dose: 2 unit Insulin Human Lispro (Humalog) 0 units SC .BEDTIME SLIDING SC PRN PRN Reason: Bedtime Correctional Scale Labetalol HCl (Normodyne) 10 mg SLOW IVP Q2H PRN PRN Reason: Systolic BP > 180 Last Admin: 11/07/17 23:58 Dose: 10 mg Lisinopril (Zestril) 40 mg PER TUBE DAILY [facility] Last Admin: 11/18/17 11:49 Dose: Not Given Loperamide HCl (Imodium) 2 mg PER TUBE PRN PRN PRN Reason: Diarrhea/Loose Stools Loratadine (Claritin) 10 mg PER TUBE DAILYPRN PRN PRN Reason: Sinus Symptoms Magnesium Hydroxide (Milk Of Magnesium) 30 ml PER TUBE DAILYPRN PRN PRN Reason: Constipation Last Admin: 11/12/17 16:26 Dose: 30 ml Mineral Oil/White Petrolatum (Eucerin Cream) 0 gm TOP BIDPRN PRN PRN Reason: Dry Skin Nicotine (Nicoderm Patch) 21 mg TD DAILY PRN PRN Reason: Smoking Cessation Ondansetron HCl (Zofran) 4 mg IVP Q6H PRN PRN Reason: Nausea/Vomiting Last Admin: 11/12/17 11:16 Dose: 4 mg Ondansetron HCl (Zofran Odt) 4 mg PER TUBE Q6H PRN PRN Reason: Nausea/Vomiting Phenol (Chloraseptic [place] 180 Ml Bot) 0 ml PO PRN PRN PRN Reason: Sore Throat Scopolamine (Transderm Scop) 1.5 mg TD Q3D [facility] Last Admin: 11/15/17 12:30 Dose: 1.5 mg Senna (Senokot) 2 tab PER TUBE HSPRN PRN PRN Reason: Constipation Last Admin: 11/18/17 11:50 Dose: 2 tab Sodium Biphosphate/Sodium Phosphate (Fleet Enema) 133 ml FS DAILYPRN PRN PRN Reason: CONSTIPATION Last Admin: 11/13/17 13:35 Dose: 133 ml Sodium Chloride ([place] Nasal [place] 0.65%) 0 ml EA NARE QIDPRN PRN PRN Reason: Nasal Congestion Sodium Chloride (Flush - Normal Saline) 10 ml IVF PRN PRN PRN Reason: Saline Flush Last Admin: 11/10/17 22:00 Dose: 10 ml Zolpidem Tartrate (Ambien) 5 mg PER TUBE HSPRN PRN PRN Reason: Insomnia
[2017-11-18] MEDS: Scopolamine 1.5 mg/72 hour Patch TD SCH (16:12)
[2017-11-18] MEDS: Atorvastatin Calcium 40 MG TAB PER TUBE SCH (21:30)
[2017-11-18] MEDS ORDERED: Fleet Enema 133 ML BOT FS SCH (22:30)
[2017-11-19 04:39] LABS: Calc. Creatinine Clearance 105 mL/min (70-130); Estimated GFR-MDRD Greater than 90; Hemoglobin 14.6 g/dL (14.0-18.0); Platelet Count 411 thou/uL (130-400)
[2017-11-19] MEDS: Carvedilol 6.25 MG TAB PER TUBE SCH ×2 (08:39→15:59)
[2017-11-19] MEDS: Finasteride 5 MG TAB FS SCH (08:40)
[2017-11-19] MEDS: Amlodipine 10 MG TAB PER TUBE SCH (08:40)
[2017-11-19] MEDS: Apixaban 5 MG TAB PER TUBE SCH ×2 (08:40→21:46)
[2017-11-19] MEDS: Famotidine 20 MG TAB PER TUBE SCH ×2 (08:40→21:46)
[2017-11-19] MEDS: Aspirin 81 mg Enteric Coated Tablet PER TUBE SCH (08:40)
[2017-11-19] MEDS: hydrALAZINE 25 MG TAB PER TUBE SCH ×3 (08:40→21:46)
[2017-11-19] MEDS: FLUoxetine HCl 20 MG CAP PER TUBE SCH (08:40)
[2017-11-19] MEDS: Lisinopril 20 MG TAB PER TUBE SCH (08:40)
[2017-11-19] MEDS ORDERED: HumaLOG 300 UNITS/3 ML VIAL SC SCH (10:00)
[2017-11-19] MEDS: HumaLOG 300 UNITS/3 ML VIAL SC PRN ×2 (10:44→17:10)
--- NOTE | 2017-11-19 14:11 | PDOC.PN ---
- Subjective Encounter Start Date: 11/19/17 Encounter Start Time: 10:15 Subjective: pt up in bed no complains - Objective Resuscitation Status: Resuscitation Status FULL:Full Resuscitation Vital Signs & Weight: Vital Signs (12 hours) Temp Pulse Resp BP BP Pulse Ox 11/19/17 12:09 97.6 F 60 16 109/64 93 L 11/19/17 08:40 61 157/80 H 11/19/17 08:39 157/80 H 11/19/17 08:00 98.4 F 61 16 157/80 H 93 L 11/19/17 07:10 93 L 11/19/17 04:00 98.6 F 59 L 18 134/64 96 Weight Admit Weight 176 lb 6.4 oz Weight 167 lb 8 oz I&O: 11/18/17 11/19/17 11/20/17 06:59 06:59 06:59 Intake Total 1931 1910 694 Balance 1931 1910 694 Result Diagrams: 11/19/17 03:51 11/19/17 03:51 Additional Labs: Accuchecks 11/19/17 11/19/17 11/18/17 10:36 05:53 20:09 POC Glucose 190 H 146 H 149 H 11/18/17 11/18/17 11/18/17 16:35 10:52 05:55 POC Glucose 178 H 131 H 131 H Phys Exam - Physical Examination HEENT: PERRLA, moist MMs, sclera anicteric, TM's clear, oral pharynx no lesions , 2+ tonsils Neck: no nodes, no JVD, supple, full ROM Respiratory: no wheezing, no rales, no rhonchi, wheezing present, clear to auscultation bilateral left upper ext flaccid Dx/Plan (1) Acute CVA (cerebrovascular accident) Code(s): I63.9 - CEREBRAL INFARCTION, UNSPECIFIED Status: Acute Comment: 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, continue ASA, Eliquis (2) Diabetes type 2, controlled Code(s): E11.9 - TYPE 2 DIABETES MELLITUS WITHOUT COMPLICATIONS Status: Chronic Comment: Diet managed, serial accuchecks (3) Oropharyngeal dysphagia Code(s): R13.12 - DYSPHAGIA, OROPHARYNGEAL PHASE Status: Acute Comment: with PEG in place - Plan pt is not tolerating 2 can per nurse. -: pt has sever reflux on ppi -: he is getting 4-5 can a day. -: will talk to [facility], awaiting placement * . Review of Systems - Review of Systems Other: unable to perform - Medications/Allergies Allergies/Adverse Reactions: Allergies Allergy/AdvReac Type Severity Reaction Status Date / Time No Known Drug Allergies Allergy Verified 11/04/17 21:12 Medications: Current Medications Acetaminophen (Tylenol) 650 mg PER TUBE Q4H PRN PRN Reason: Headache/Fever or Pain Last Admin: 11/14/17 13:05 Dose: 650 mg Al Hydroxide/Mg Hydroxide (Maalox) 30 ml PER TUBE Q6H PRN PRN Reason: Heartburn or Indigestion Last Admin: 11/16/17 12:56 Dose: 30 ml Amlodipine Besylate (Norvasc) 10 mg PER TUBE DAILY [facility] Last Admin: 11/19/17 08:40 Dose: 10 mg Apixaban (Eliquis) 5 mg PER TUBE BID [facility] Last Admin: 11/19/17 08:40 Dose: 5 mg Artificial Tears (Tears Renewed 15ml Bottle) 0 drop EA EYE PRN PRN PRN Reason: Dry Eyes Aspirin (Ecotrin) 81 mg PER TUBE DAILY [facility] Last Admin: 11/19/17 08:40 Dose: 81 mg Atorvastatin Calcium (Lipitor) 40 mg PER TUBE HS [facility] Last Admin: 11/18/17 21:30 Dose: 40 mg Carvedilol (Coreg) 12.5 mg PER TUBE BID-WM [facility] Last Admin: 11/19/17 08:39 Dose: 12.5 mg Dextrose/Water (Dextrose 50%) 25 gm SLOW IVP PRN PRN PRN Reason: Hypoglycemia Famotidine (Pepcid) 20 mg PER TUBE BID [facility] Last Admin: 11/19/17 08:40 Dose: 20 mg Finasteride (Proscar) 5 mg FS DAILY [facility] Last Admin: 11/19/17 08:40 Dose: 5 mg Fluoxetine HCl (Prozac) 20 mg PER TUBE DAILY [facility] Last Admin: 11/19/17 08:40 Dose: 20 mg Glucagon (Glucagon) 1 mg IM PRN PRN PRN Reason: Hypoglycemia Guaifenesin (Robitussin Sf) 200 mg PER TUBE Q4H PRN PRN Reason: Cough Last Admin: 11/09/17 16:09 Dose: 200 mg Hydralazine HCl (Apresoline) 10 mg SLOW IVP Q2H PRN PRN Reason: Systolic BP > 180 Last Admin: 11/06/17 18:24 Dose: 10 mg Hydralazine HCl (Apresoline) 25 mg PER TUBE TID [facility] Last Admin: 11/19/17 08:40 Dose: 25 mg Dextrose/Water (D5w) 1,000 mls @ 0 mls/hr IV .Q0M PRN PRN Reason: Hypoglycemia Insulin Human Lispro (Humalog) 0 units SC .MODERATE SLIDING SC PRN PRN Reason: Moderate Correctional Scale Last Admin: 11/19/17 10:44 Dose: 2 unit Insulin Human Lispro (Humalog) 0 units SC .BEDTIME SLIDING SC PRN PRN Reason: Bedtime Correctional Scale Labetalol HCl (Normodyne) 10 mg SLOW IVP Q2H PRN PRN Reason: Systolic BP > 180 Last Admin: 11/07/17 23:58 Dose: 10 mg Lisinopril (Zestril) 40 mg PER TUBE DAILY [facility] Last Admin: 11/19/17 08:40 Dose: 40 mg Loperamide HCl (Imodium) 2 mg PER TUBE PRN PRN PRN Reason: Diarrhea/Loose Stools Loratadine (Claritin) 10 mg PER TUBE DAILYPRN PRN PRN Reason: Sinus Symptoms Magnesium Hydroxide (Milk Of Magnesium) 30 ml PER TUBE DAILYPRN PRN PRN Reason: Constipation Last Admin: 11/12/17 16:26 Dose: 30 ml Mineral Oil/White Petrolatum (Eucerin Cream) 0 gm TOP BIDPRN PRN PRN Reason: Dry Skin Nicotine (Nicoderm Patch) 21 mg TD DAILY PRN PRN Reason: Smoking Cessation Ondansetron HCl (Zofran) 4 mg IVP Q6H PRN PRN Reason: Nausea/Vomiting Last Admin: 11/12/17 11:16 Dose: 4 mg Ondansetron HCl (Zofran Odt) 4 mg PER TUBE Q6H PRN PRN Reason: Nausea/Vomiting Phenol (Chloraseptic [place] 180 Ml Bot) 0 ml PO PRN PRN PRN Reason: Sore Throat Scopolamine (Transderm Scop) 1.5 mg TD Q3D [facility] Last Admin: 11/18/17 16:12 Dose: Not Given Senna (Senokot) 2 tab PER TUBE HSPRN PRN PRN Reason: Constipation Last Admin: 11/18/17 11:50 Dose: 2 tab Sodium Biphosphate/Sodium Phosphate (Fleet Enema) 133 ml FS DAILYPRN PRN PRN Reason: CONSTIPATION Last Admin: 11/13/17 13:35 Dose: 133 ml Sodium Chloride ([place] Nasal [place] 0.65%) 0 ml EA NARE QIDPRN PRN PRN Reason: Nasal Congestion Sodium Chloride (Flush - Normal Saline) 10 ml IVF PRN PRN PRN Reason: Saline Flush Last Admin: 11/10/17 22:00 Dose: 10 ml Zolpidem Tartrate (Ambien) 5 mg PER TUBE HSPRN PRN PRN Reason: Insomnia
[2017-11-19] MEDS ORDERED: Insulin Glargine 8 UNITS in Pre-Filled Syringe 1 EACH SC SCH (21:00)
[2017-11-19] MEDS: Atorvastatin Calcium 40 MG TAB PER TUBE SCH (21:46)
[2017-11-20] MEDS: HumaLOG 300 UNITS/3 ML VIAL SC PRN (06:51)
[2017-11-20] MEDS: Apixaban 5 MG TAB PER TUBE SCH ×2 (09:32→21:13)
[2017-11-20] MEDS: Famotidine 20 MG TAB PER TUBE SCH ×2 (09:32→21:13)
[2017-11-20] MEDS: Amlodipine 10 MG TAB PER TUBE SCH (09:32)
[2017-11-20] MEDS: Aspirin 81 mg Enteric Coated Tablet PER TUBE SCH (09:32)
[2017-11-20] MEDS: Carvedilol 6.25 MG TAB PER TUBE SCH ×2 (09:32→16:17)
[2017-11-20] MEDS: Finasteride 5 MG TAB FS SCH (09:33)
[2017-11-20] MEDS: hydrALAZINE 25 MG TAB PER TUBE SCH ×3 (09:33→21:13)
[2017-11-20] MEDS: Lisinopril 20 MG TAB PER TUBE SCH (09:33)
[2017-11-20] MEDS: FLUoxetine HCl 20 MG CAP PER TUBE SCH (09:33)
[2017-11-20] MEDS ORDERED: Insulin Glargine 8 UNITS in Pre-Filled Syringe 1 EACH SC SCH (09:47)
[2017-11-20 10:48] VITALS: BMI 22.9
--- NOTE | 2017-11-20 14:08 | PDOC.PN ---
- Subjective Encounter Start Date: 11/20/17 Encounter Start Time: 09:00 Subjective: pt up in bed non verbal - Objective Resuscitation Status: Resuscitation Status FULL:Full Resuscitation Vital Signs & Weight: Vital Signs (12 hours) Temp Pulse Pulse Pulse Resp BP BP 11/20/17 12:00 98.3 F 61 16 11/20/17 09:54 62 68 131/67 11/20/17 09:33 54 L 140/82 11/20/17 09:32 54 L 140/82 11/20/17 08:04 98.0 F 54 L 20 11/20/17 07:20 11/20/17 04:00 97.1 F L 56 L 16 BP BP BP Pulse Ox 11/20/17 12:00 120/65 96 11/20/17 09:54 134/75 11/20/17 09:33 11/20/17 09:32 11/20/17 08:04 140/82 95 11/20/17 07:20 94 L 11/20/17 04:00 136/65 93 L Weight Admit Weight 176 lb 6.4 oz Weight 169 lb 7 oz I&O: 11/19/17 11/20/17 11/21/17 06:59 06:59 06:59 Intake Total 1911 2793 694 Output Total 0 Balance 1911 2793 694 Result Diagrams: 11/19/17 03:51 11/19/17 03:51 Additional Labs: Accuchecks 11/20/17 11/20/17 11/19/17 11:21 05:44 21:58 POC Glucose 126 H 169 H 125 H 11/19/17 17:01 POC Glucose 170 H Phys Exam - Physical Examination Neck: no nodes, no JVD, supple, full ROM Respiratory: no wheezing, no rales, no rhonchi, wheezing present, clear to auscultation bilateral Cardiovascular: RRR, no significant murmur, no rub, gallop, irregular Gastrointestinal: soft, non-tender, no distention, positive bowel sounds Musculoskeletal: no edema, pulses present, edema present left upper ext weakness Dx/Plan (1) Acute CVA (cerebrovascular accident) Code(s): I63.9 - CEREBRAL INFARCTION, UNSPECIFIED Status: Acute Comment: 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, continue ASA, Eliquis (2) Diabetes type 2, controlled Code(s): E11.9 - TYPE 2 DIABETES MELLITUS WITHOUT COMPLICATIONS Status: Chronic Comment: Diet managed, serial accuchecks (3) Oropharyngeal dysphagia Code(s): R13.12 - DYSPHAGIA, OROPHARYNGEAL PHASE Status: Acute Comment: with PEG in place - Plan pt tolerating feed q4h well -: awaiting placement * . Review of Systems - Review of Systems Other: unable to perform - Medications/Allergies Allergies/Adverse Reactions: Allergies Allergy/AdvReac Type Severity Reaction Status Date / Time No Known Drug Allergies Allergy Verified 11/04/17 21:12 Medications: Current Medications Acetaminophen (Tylenol) 650 mg PER TUBE Q4H PRN PRN Reason: Headache/Fever or Pain Last Admin: 11/14/17 13:05 Dose: 650 mg Al Hydroxide/Mg Hydroxide (Maalox) 30 ml PER TUBE Q6H PRN PRN Reason: Heartburn or Indigestion Last Admin: 11/16/17 12:56 Dose: 30 ml Amlodipine Besylate (Norvasc) 10 mg PER TUBE DAILY [facility] Last Admin: 11/20/17 09:32 Dose: 10 mg Apixaban (Eliquis) 5 mg PER TUBE BID [facility] Last Admin: 11/20/17 09:32 Dose: 5 mg Artificial Tears (Tears Renewed 15ml Bottle) 0 drop EA EYE PRN PRN PRN Reason: Dry Eyes Aspirin (Ecotrin) 81 mg PER TUBE DAILY [facility] Last Admin: 11/20/17 09:32 Dose: 81 mg Atorvastatin Calcium (Lipitor) 40 mg PER TUBE HS [facility] Last Admin: 11/19/17 21:46 Dose: 40 mg Carvedilol (Coreg) 6.25 mg PER TUBE BID-WM [facility] Last Admin: 11/20/17 09:32 Dose: 6.25 mg Dextrose/Water (Dextrose 50%) 25 gm SLOW IVP PRN PRN PRN Reason: Hypoglycemia Famotidine (Pepcid) 20 mg PER TUBE BID [facility] Last Admin: 11/20/17 09:32 Dose: 20 mg Finasteride (Proscar) 5 mg FS DAILY [facility] Last Admin: 11/20/17 09:33 Dose: 5 mg Fluoxetine HCl (Prozac) 20 mg PER TUBE DAILY [facility] Last Admin: 11/20/17 09:33 Dose: 20 mg Glucagon (Glucagon) 1 mg IM PRN PRN PRN Reason: Hypoglycemia Guaifenesin (Robitussin Sf) 200 mg PER TUBE Q4H PRN PRN Reason: Cough Last Admin: 11/09/17 16:09 Dose: 200 mg Hydralazine HCl (Apresoline) 10 mg SLOW IVP Q2H PRN PRN Reason: Systolic BP > 180 Last Admin: 11/06/17 18:24 Dose: 10 mg Hydralazine HCl (Apresoline) 25 mg PER TUBE TID [facility] Last Admin: 11/20/17 09:33 Dose: 25 mg Dextrose/Water (D5w) 1,000 mls @ 0 mls/hr IV .Q0M PRN PRN Reason: Hypoglycemia Insulin Human Lispro (Humalog) 0 units SC .MODERATE SLIDING SC PRN PRN Reason: Moderate Correctional Scale Last Admin: 11/20/17 06:51 Dose: 2 unit Insulin Human Lispro (Humalog) 0 units SC .BEDTIME SLIDING SC PRN PRN Reason: Bedtime Correctional Scale Labetalol HCl (Normodyne) 10 mg SLOW IVP Q2H PRN PRN Reason: Systolic BP > 180 Last Admin: 11/07/17 23:58 Dose: 10 mg Lisinopril (Zestril) 40 mg PER TUBE DAILY [facility] Last Admin: 11/20/17 09:33 Dose: 40 mg Loperamide HCl (Imodium) 2 mg PER TUBE PRN PRN PRN Reason: Diarrhea/Loose Stools Loratadine (Claritin) 10 mg PER TUBE DAILYPRN PRN PRN Reason: Sinus Symptoms Magnesium Hydroxide (Milk Of Magnesium) 30 ml PER TUBE DAILYPRN PRN PRN Reason: Constipation Last Admin: 11/12/17 16:26 Dose: 30 ml Mineral Oil/White Petrolatum (Eucerin Cream) 0 gm TOP BIDPRN PRN PRN Reason: Dry Skin Nicotine (Nicoderm Patch) 21 mg TD DAILY PRN PRN Reason: Smoking Cessation Ondansetron HCl (Zofran) 4 mg IVP Q6H PRN PRN Reason: Nausea/Vomiting Last Admin: 11/12/17 11:16 Dose: 4 mg Ondansetron HCl (Zofran Odt) 4 mg PER TUBE Q6H PRN PRN Reason: Nausea/Vomiting Phenol (Chloraseptic [place] 180 Ml Bot) 0 ml PO PRN PRN PRN Reason: Sore Throat Scopolamine (Transderm Scop) 1.5 mg TD Q3D [facility] Last Admin: 11/18/17 16:12 Dose: Not Given Senna (Senokot) 2 tab PER TUBE HSPRN PRN PRN Reason: Constipation Last Admin: 11/18/17 11:50 Dose: 2 tab Sodium Biphosphate/Sodium Phosphate (Fleet Enema) 133 ml FS DAILYPRN PRN PRN Reason: CONSTIPATION Last Admin: 11/13/17 13:35 Dose: 133 ml Sodium Chloride ([place] Nasal [place] 0.65%) 0 ml EA NARE QIDPRN PRN PRN Reason: Nasal Congestion Sodium Chloride (Flush - Normal Saline) 10 ml IVF PRN PRN PRN Reason: Saline Flush Last Admin: 11/10/17 22:00 Dose: 10 ml Zolpidem Tartrate (Ambien) 5 mg PER TUBE HSPRN PRN PRN Reason: Insomnia
[2017-11-20] MEDS: Atorvastatin Calcium 40 MG TAB PER TUBE SCH (21:13)
[2017-11-20] MEDS: Acetaminophen 325 MG TAB PER TUBE PRN (21:24)
[2017-11-21] MEDS: Lisinopril 20 MG TAB PER TUBE SCH (10:13)
[2017-11-21] MEDS: FLUoxetine HCl 20 MG CAP PER TUBE SCH (10:14)
[2017-11-21] MEDS: Carvedilol 6.25 MG TAB PER TUBE SCH (10:14)
[2017-11-21] MEDS: Finasteride 5 MG TAB FS SCH (10:14)
[2017-11-21] MEDS: hydrALAZINE 25 MG TAB PER TUBE SCH (10:14)
[2017-11-21] MEDS: Famotidine 20 MG TAB PER TUBE SCH (10:15)
[2017-11-21] MEDS: Apixaban 5 MG TAB PER TUBE SCH (10:15)
[2017-11-21] MEDS: Aspirin 81 mg Enteric Coated Tablet PER TUBE SCH (10:15)
[2017-11-21] MEDS: Amlodipine 10 MG TAB PER TUBE SCH (10:18)
[2017-11-21 11:17] VITALS: BP 124/64; TEMP 97.6
--- NOTE | 2017-11-22 01:08 | DIS ---
DATE OF ADMISSION: 11/04/2017 DATE OF DISCHARGE: 11/21/2017 DISCHARGE DIAGNOSES: 1. Acute cerebrovascular accident. 2. Diabetes. 3. Hypertension. 4. Oropharyngeal dysphagia. HOSPITAL COURSE: The patient is a very pleasant 57-year-old male who initially was presented to the hospital on 11/04. Please refer to H&P for further details with complaints of weakness on his left s nicola. At this time, EMS was summoned and the patient was brought into the hospital. The patient also has been on Eliquis a week prior to that. The patient did have a CTA of the brain, of the head and neck also, which indicated just chronic type findings. No acute intracranial abnormalities were note d and had good flow throughout each internal carotid and vertebral arteries. Also at this time, Neur ology was consulted and will seem to state to continue the current regimen. While the patient was in the hospital, the patient's stroke symptoms worsen and at the same time, another brain CT was ordere d. This happened on 11/05 and it just indicated some areas of small stroke. No significant changes were noted. However, the patient did have a brain MRI that day which indicated multiple acute bilate ral hemispheric infarcts. The patient at this time was unable to swallow, so nutrition was an issue. At this time, he did have a PEG placement by GI. Patient's Eliquis and aspirin were continued. He also had a repeat echocardiogram which indicated an EF of 60-65%, mild tricuspid regurgitation, cristal lar calcification is present and mild mitral regurgitation. Patient had a CLEO just a couple of weeks prior to that which did not indicate any clots in his aortic arch or any cardiac source for his embo li. Due to this, his current medication of Eliquis was continued since it had just been a week. It is unclear if these recurrent strokes were secondary to just calcification; however, he did not have significant calcification in his vessels versus new clots. We will continue Eliquis for now. If low verde continues to have clots, they might do hypercoagulable workup. He did not have a PFO on the CLEO that was done last time, I do not think changing the entire coagulant medication will be much of lee efit at this time. Also, his blood pressure medications were titrated and his blood pressure on was stable. MEDICATIONS: His home medications were going to be of the following, finasteride 5 mg daily, hydrala zine 25 t.i.d., Senokot 2 tabs p.r.n., nicotine 21 mg daily, lisinopril 40 mg daily, Pepcid 20 mg b.i .d., Prozac 20 mg daily, Coreg 12.5 b.i.d., and 6.25 b.i.d., atorvastatin 20 mg daily, aspirin 81 mg daily, Norvasc 10 mg daily, and Eliquis 5 mg p.o. b.i.d. PHYSICAL EXAMINATION: VITAL SIGNS: Temperature of 97.6, 60, 18, 96% room air. GENERAL: He is awake, alert, oriented x3, is in no apparent distress. CARDIOVASCULAR: S1, S2 present. No murmurs, rubs or gallops. NEUROLOGIC: He does have left-sided upper body extremity weakness, left lower are okay. ABDOMEN: Soft, nontender. Bowel sounds are present in the room. EXTREMITIES: No edema. DISPOSITION: He will be transferred to a rehab facility and continue to monitor.
== END 2017-11-21 14:43 | DRG 66 ==
LOC: ERS 08:09 → 2SE 10:49 → MERGE 10:49 → 2SE 11-10 17:29
PROVIDERS: ADMIT Internal Medicine; ATTEND Internal Medicine
PROC: 0DH63UZ Insertion of Feeding Device into Stomach, Percutaneous Approach (ICD-10-PCS; principal; 2017-11-08)
DX: I63.9 Cerebral infarction, unspecified (principal); R47.81 Slurred speech; I10 Essential (primary) hypertension; Z79.899 Other long term (current) drug therapy; Z79.82 Long term (current) use of aspirin; E11.9 Type 2 diabetes mellitus without complications; E78.5 Hyperlipidemia, unspecified; F17.210 Nicotine dependence, cigarettes, uncomplicated; Z91.14 Patient's other noncompliance with medication regimen; I16.0 Hypertensive urgency; N40.0 Benign prostatic hyperplasia without lower urinary tract symptoms; R13.12 Dysphagia, oropharyngeal phase; Z79.01 Long term (current) use of anticoagulants; E87.6 Hypokalemia; R47.01 Aphasia; R29.710 NIHSS score 10; G83.34 Monoplegia, unspecified affecting left nondominant side
CPT/HCPCS: 36415; 36416; 70450; 70496; 70498; 70551; 74018; 80048; 80053; 80061; 80306; 81003; 81015; 82553; 82565; 83036; 83090; 83735; 84100; 84484; 85014; 85018; 85025; 85049; 85610; 85730; 86780; 90471; 90732; 93005; 93306; G0009; G8978-GP-CM; G8979-GP-CK; G8987-GO-CM; G8988-GO-CK; G8996-GN-CN; G8997-GN-CK; G8997-GN-CM; J0131; J0360; J0696; J2405; J2704; J7050

== ENCOUNTER 2020-12-01 18:56 | Inpatient (IN) | payer MEDICARE, MEDICAID ==
[2020-12-01 19:45] LABS: #Eosinphils 0.1 thou/uL (0.0-0.7); #Lymphocytes 1.2 thou/uL (1.20-3.40); #Monocytes 0.6 thou/uL (0.11-0.59); #Neutrophils 8.9 thou/uL (1.40-6.50); %Basophils 0.2 % (0.0-1.0); %Eosinophils 0.5 % (0.0-10.0); %Lymphocytes 11.5 % (21.0-51.0); %Monocytes 5.5 % (0.0-10.0); %Neutrophils 82.4 % (42.0-75.0); Hemoglobin 12.6 g/dL (14.0-18.0); Mean Corpuscular HGB CONC 34.2 g/dL (32.0-36.0); Mean Corpuscular Hemoglobin 30.5 pg (27.0-31.0); Mean Corpuscular Volume 89.2 fL (78.0-98.0); Platelet Count 233 thou/uL (130-400); RBC Distribution Width 12.1 % (11.5-14.5); Red Blood Cell (RBC) Count 4.13 mill/uL (4.70-6.10); White Blood Cell (WBC) Count 10.8 thou/uL (4.8-10.8)
[2020-12-01 19:58] LABS: INR-International Normal Ratio 1.3; PTT 43.6 sec (22.9-36.1); Prothrombin Time 16.3 sec (12.0-14.7)
[2020-12-01 20:03] LABS: ALT (SGPT) 29 U/L (8-55); AST (SGOT) 24 U/L (5-34); Albumin 3.8 g/dL (3.5-5.0); Alkaline Phosphatase 118 U/L (40-110); Anion Gap 15 mmol/L (10-20); BUN (Urea Nitrogen) 18 mg/dL (8.4-25.7); Bilirubin, Total 0.4 mg/dL (0.2-1.2); Calc. Creatinine Clearance 0 mL/min (70-130); Calcium 8.8 mg/dL (7.8-10.44); Carbon Dioxide 23 mmol/L (22-29); Chloride 106 mmol/L (98-107); Globulin 3.5 g/dL (2.4-3.5); Glucose 243 mg/dL (70-105); Potassium 3.5 mmol/L (3.5-5.1); Protein, Total 7.3 g/dL (6.0-8.3); Sodium 140 mmol/L (136-145)
[2020-12-01 20:19] LABS: Bacteria/HPF 4+ HPF (None Seen); Bilirubin Negative (Negative); Blood, Urine Negative (Negative); Clarity Turbid (Clear); Glucose, Urine (Dipstick) Normal (Negative); Ketone, Urine Negative (Negative); Leukocyte 500 Leu/uL (Negative); Nitrite Negative (Negative); Protein, Urine (Dipstick) 100 mg/dL (Neg-Trace); Specific Gravity, Urine 1.031 (1.002-1.036); Squamous Epithelial 0-3 HPF (0-3); WBC/HPF Greater than 50 HPF (0-3); pH, Urine 5.5 (5.0-9.0)
[2020-12-01] MEDS ORDERED: Ketorolac Tromethamine 30 MG/ML VIAL ONE (21:11)
[2020-12-01] MEDS ORDERED: cefTRIAXone\\ROCEPHIN 1 GM VIAL ONE (21:37)
[2020-12-01 22:55] LABS: Lactic Acid 1.4 mmol/L (0.5-2.2)
[2020-12-01] MEDS ORDERED: Acetaminophen 650 MG Suppository PR PRN (23:06)
[2020-12-01] MEDS ORDERED: Ondansetron ODT 4 MG TAB PO PRN (23:06)
[2020-12-01] MEDS ORDERED: Ondansetron PF 4 MG/2 ML Vial IVP PRN (23:06)
[2020-12-01] MEDS ORDERED: Acetaminophen 325 MG TAB PO PRN (23:06)
[2020-12-01] MEDS: Sodium Chloride 0.9% 1,000 ML IV SCH (23:45)
[2020-12-02] MEDS ORDERED: Dextrose 5% in Water 1,000 ML IV PRN (01:30)
[2020-12-02] MEDS ORDERED: HumaLOG 300 UNITS/3 ML VIAL SC PRN ×2 (01:30)
[2020-12-02] MEDS ORDERED: Dextrose 50% Abboject 50 ML SYRINGE SLOW IVP PRN (01:30)
[2020-12-02 02:13] VITALS: BMI 22.9
[2020-12-02] MEDS: Cefepime 2 GM in Sodium Chloride 0.9% 100 ML IVPB SCH ×2 (08:45→20:36)
[2020-12-02] MEDS: Sodium Chloride 0.9% 1,000 ML IV SCH ×2 (08:45→17:50)
[2020-12-02] MEDS ORDERED: Enoxaparin Sodium 40 MG/0.4 ML SYRINGE SC SCH (09:00)
[2020-12-02 11:53] LABS: SARS-CoV-2 PCR by NAA Not Detected (NotDetected)
[2020-12-02 14:17] LABS: #Eosinphils 0.1 thou/uL (0.0-0.7); #Lymphocytes 1.1 thou/uL (1.20-3.40); #Monocytes 0.4 thou/uL (0.11-0.59); #Neutrophils 3.5 thou/uL (1.40-6.50); %Basophils 0.6 % (0.0-1.0); %Eosinophils 1.1 % (0.0-10.0); %Lymphocytes 20.9 % (21.0-51.0); %Monocytes 8.6 % (0.0-10.0); %Neutrophils 68.9 % (42.0-75.0); Hemoglobin 12.2 g/dL (14.0-18.0); Mean Corpuscular HGB CONC 33.9 g/dL (32.0-36.0); Mean Corpuscular Hemoglobin 29.9 pg (27.0-31.0); Platelet Count 234 thou/uL (130-400); Red Blood Cell (RBC) Count 4.09 mill/uL (4.70-6.10); White Blood Cell (WBC) Count 5.1 thou/uL (4.8-10.8)
[2020-12-02 14:21] LABS: Anion Gap 12 mmol/L (10-20); BUN (Urea Nitrogen) 17 mg/dL (8.4-25.7); Calc. Creatinine Clearance 104 mL/min (70-130); Calcium 8.4 mg/dL (7.8-10.44); Carbon Dioxide 23 mmol/L (22-29); Chloride 111 mmol/L (98-107); Glucose 137 mg/dL (70-105); Potassium 3.5 mmol/L (3.5-5.1); Sodium 142 mmol/L (136-145)
[2020-12-02] MEDS ORDERED: Acetaminophen 325 MG TAB PO PRN (15:37)
[2020-12-02] MEDS ORDERED: Methyl Salicylate/Menthol 85 GM TUBE TOP PRN (15:37)
[2020-12-02] MEDS: Ferrous Sulfate 325 MG TAB PO SCH (17:13)
[2020-12-02] MEDS: hydrALAZINE 25 MG TAB PO SCH (20:37)
[2020-12-02] MEDS: Apixaban 5 MG TAB PO SCH (20:37)
[2020-12-02] MEDS: Baclofen 10 MG TAB PO SCH (20:37)
[2020-12-02] MEDS ORDERED: Baclofen 10 MG TAB PO SCH (21:00)
[2020-12-03] MEDS: Sodium Chloride 0.9% 1,000 ML IV SCH ×2 (04:36→16:20)
[2020-12-03] MEDS: Cefepime 2 GM in Sodium Chloride 0.9% 100 ML IVPB SCH (08:35)
[2020-12-03] MEDS: Amlodipine 10 MG TAB PO SCH (08:36)
[2020-12-03] MEDS: Baclofen 10 MG TAB PO SCH ×3 (08:36→20:48)
[2020-12-03] MEDS: Finasteride 5 MG TAB PO SCH (08:36)
[2020-12-03] MEDS: hydrALAZINE 25 MG TAB PO SCH ×3 (08:36→20:48)
[2020-12-03] MEDS: Ferrous Sulfate 325 MG TAB PO SCH ×2 (08:36→16:20)
[2020-12-03] MEDS: Lisinopril 20 MG TAB PO SCH (08:36)
[2020-12-03] MEDS: metFORMIN XR 500 MG TAB PO SCH (08:36)
[2020-12-03] MEDS: Apixaban 5 MG TAB PO SCH ×2 (08:36→20:48)
[2020-12-03] MEDS: FLUoxetine HCl 20 MG CAP PO SCH (08:36)
[2020-12-03] MEDS ORDERED: cefTRIAXone\\ROCEPHIN 1 GM in Sodium Chloride 0.9% 100 ML IVPB SCH (18:00)
[2020-12-04] MEDS: Sodium Chloride 0.9% 1,000 ML IV SCH ×2 (01:33→13:15)
[2020-12-04 07:39] VITALS: TEMP 98
[2020-12-04 08:55] LABS: #Eosinphils 0.2 thou/uL (0.0-0.7); #Lymphocytes 1.6 thou/uL (1.20-3.40); #Monocytes 0.9 thou/uL (0.11-0.59); #Neutrophils 3.9 thou/uL (1.40-6.50); %Basophils 0.6 % (0.0-1.0); %Eosinophils 3.1 % (0.0-10.0); %Lymphocytes 23.8 % (21.0-51.0); %Monocytes 13.6 % (0.0-10.0); Hemoglobin 12.5 g/dL (14.0-18.0); Mean Corpuscular HGB CONC 34.1 g/dL (32.0-36.0); Mean Corpuscular Hemoglobin 29.8 pg (27.0-31.0); Mean Corpuscular Volume 87.3 fL (78.0-98.0); Mean Platelet Volume 8.3 fL (7.4-10.4); Platelet Count 244 thou/uL (130-400); Red Blood Cell (RBC) Count 4.21 mill/uL (4.70-6.10); White Blood Cell (WBC) Count 6.6 thou/uL (4.8-10.8)
[2020-12-04 09:16] LABS: Anion Gap 12 mmol/L (10-20); BUN (Urea Nitrogen) 7 mg/dL (8.4-25.7); Calc. Creatinine Clearance 117 mL/min (70-130); Calcium 8.9 mg/dL (7.8-10.44); Carbon Dioxide 26 mmol/L (22-29); Chloride 107 mmol/L (98-107); Glucose 126 mg/dL (70-105); Potassium 3.4 mmol/L (3.5-5.1); Sodium 142 mmol/L (136-145)
[2020-12-04] MEDS: Ferrous Sulfate 325 MG TAB PO SCH (09:46)
[2020-12-04] MEDS: hydrALAZINE 25 MG TAB PO SCH ×2 (09:46→16:39)
[2020-12-04] MEDS: Finasteride 5 MG TAB PO SCH (09:47)
[2020-12-04] MEDS: Amlodipine 10 MG TAB PO SCH (09:47)
[2020-12-04] MEDS: Lisinopril 20 MG TAB PO SCH (09:47)
[2020-12-04] MEDS: Apixaban 5 MG TAB PO SCH (09:47)
[2020-12-04] MEDS: FLUoxetine HCl 20 MG CAP PO SCH (09:47)
[2020-12-04 09:48] VITALS: BP 121/71
[2020-12-04] MEDS: metFORMIN XR 500 MG TAB PO SCH (09:48)
[2020-12-04] MEDS: Baclofen 10 MG TAB PO SCH ×2 (09:59→16:39)
[2020-12-04] MEDS ORDERED: Potassium Chloride 20 MEQ TAB PO SCH (16:15)
== END 2020-12-04 17:04 | DRG 872 ==
LOC: ERS 18:56 → ERHOLD 21:52 → T4-B 22:56
PROVIDERS: ADMIT Student in an Organized Health Care Education/Training Program; ATTEND Student in an Organized Health Care Education/Training Program
DX: A41.4 Sepsis due to anaerobes (principal); N39.0 Urinary tract infection, site not specified; I69.354 Hemiplegia and hemiparesis following cerebral infarction affecting left non-dominant side; E11.9 Type 2 diabetes mellitus without complications; E78.5 Hyperlipidemia, unspecified; I10 Essential (primary) hypertension; Z20.822 Contact with and (suspected) exposure to COVID-19; F32.A Depression, unspecified; D53.9 Nutritional anemia, unspecified; N40.0 Benign prostatic hyperplasia without lower urinary tract symptoms; R13.12 Dysphagia, oropharyngeal phase; I69.391 Dysphagia following cerebral infarction; Z87.891 Personal history of nicotine dependence; I69.320 Aphasia following cerebral infarction; Z79.899 Other long term (current) drug therapy; Z79.82 Long term (current) use of aspirin; Z79.84 Long term (current) use of oral hypoglycemic drugs; Z79.02 Long term (current) use of antithrombotics/antiplatelets
CPT/HCPCS: 36415; 36416; 51701; 70450; 71045; 72125; 72170; 80048; 80053; 81003; 81015; 82550; 83605; 85025; 85610; 85730; 87040; 87077; 87086; 87186; 93005; 94760; 96365; 96375; J0692; J0696; J1650; J1885; J3490; J7050; U0003; U0005

== ENCOUNTER 2021-11-24 14:15 | Inpatient (IN) | payer MEDICARE, MEDICAID ==
[2021-11-24] MEDS ORDERED: Clindamycin/D5W 900 mg/50 ml Premix Bag ONE (15:03)
[2021-11-24 15:25] LABS: #Basophils 0.1 thou/uL (0.0-0.2); #Eosinphils 0.6 thou/uL (0.0-0.7); #Lymphocytes 1.5 thou/uL (1.20-3.40); #Neutrophils 14.8 thou/uL (1.40-6.50); %Basophils 0.3 % (0.0-1.0); %Eosinophils 3.1 % (0.0-10.0); %Lymphocytes 8.4 % (21.0-51.0); %Monocytes 5.5 % (0.0-10.0); %Neutrophils 82.7 % (42.0-75.0); Hemoglobin 13.2 g/dL (14.0-18.0); Mean Corpuscular Hemoglobin 29.8 pg (27.0-31.0); Mean Corpuscular Volume 90.3 fL (78.0-98.0); Mean Platelet Volume 8.1 fL (7.4-10.4); Platelet Count 257 thou/uL (130-400); Red Blood Cell (RBC) Count 4.43 mill/uL (4.70-6.10); White Blood Cell (WBC) Count 17.9 thou/uL (4.8-10.8)
[2021-11-24 15:55] LABS: ALT (SGPT) 19 U/L (8-55); AST (SGOT) 18 U/L (5-34); Alkaline Phosphatase 137 U/L (40-110); Anion Gap 14 mmol/L (10-20); BUN (Urea Nitrogen) 30 mg/dL (8.4-25.7); Bilirubin, Total 0.4 mg/dL (0.2-1.2); Calc. Creatinine Clearance 0 mL/min (70-130); Calcium 9.5 mg/dL (7.8-10.44); Carbon Dioxide 23 mmol/L (22-29); Chloride 108 mmol/L (98-107); Estimated GFR 68; Globulin 3.6 g/dL (2.4-3.5); Glucose 173 mg/dL (70-105); Potassium 4.1 mmol/L (3.5-5.1); Protein, Total 7.6 g/dL (6.0-8.3); Sodium 141 mmol/L (136-145)
[2021-11-24] MEDS ORDERED: Acetaminophen 650 MG Suppository PR PRN (16:41)
[2021-11-24] MEDS ORDERED: Bisacodyl 10 MG SUPP PR PRN (16:41)
[2021-11-24] MEDS ORDERED: Guaifenesin DM 100-10/5 ML UDCUP PO PRN (16:41)
[2021-11-24] MEDS ORDERED: Ondansetron PF 4 MG/2 ML Vial IVP PRN (16:41)
[2021-11-24 17:55] VITALS: BMI 23.3
[2021-11-24] MEDS: Sodium Chloride 0.9% 1,000 ML IV SCH (18:12)
[2021-11-24] MEDS ORDERED: Cefepime 2 GM in Sodium Chloride 0.9% 100 ML IVPB SCH (18:30)
[2021-11-24 18:59] LABS: Lactic Acid 2.6 mmol/L (0.5-2.2)
[2021-11-24] MEDS ORDERED: Acetaminophen 500 MG TAB PO PRN (19:04)
[2021-11-24] MEDS ORDERED: Vancomycin 1.5 GRAM/300 ML BAG 1.5 GM in Premix Bag 1 BAG IVPB SCH (20:00)
[2021-11-24] MEDS: Famotidine/PF 20 mg/2ml Vial SLOW IVP SCH (20:45)
[2021-11-24 23:30] LABS: Legionella Urinary Ag Negative (Negative); Strep pneumo Urine Ag NEGATIVE (NEGATIVE)
[2021-11-25] MEDS: Cefepime 2 GM in Sodium Chloride 0.9% 100 ML IVPB SCH ×3 (01:27→17:31)
[2021-11-25] MEDS: Sodium Chloride 0.9% 1,000 ML IV SCH (04:06)
[2021-11-25 04:38] LABS: #Basophils 0.1 thou/uL (0.0-0.2); #Eosinphils 0.2 thou/uL (0.0-0.7); #Lymphocytes 2.1 thou/uL (1.20-3.40); #Monocytes 1.3 thou/uL (0.11-0.59); #Neutrophils 16.2 thou/uL (1.40-6.50); %Basophils 0.3 % (0.0-1.0); %Eosinophils 1.1 % (0.0-10.0); %Lymphocytes 10.4 % (21.0-51.0); %Monocytes 6.6 % (0.0-10.0); %Neutrophils 81.6 % (42.0-75.0); Hemoglobin 11.6 g/dL (14.0-18.0); Mean Corpuscular HGB CONC 32.4 g/dL (32.0-36.0); Mean Corpuscular Hemoglobin 29.4 pg (27.0-31.0); Mean Corpuscular Volume 90.7 fL (78.0-98.0); Mean Platelet Volume 8.3 fL (7.4-10.4); Platelet Count 237 thou/uL (130-400); RBC Distribution Width 11.8 % (11.5-14.5); Red Blood Cell (RBC) Count 3.93 mill/uL (4.70-6.10); White Blood Cell (WBC) Count 19.8 thou/uL (4.8-10.8)
[2021-11-25 06:10] LABS: Anion Gap 12 mmol/L (10-20); BUN (Urea Nitrogen) 28 mg/dL (8.4-25.7); Calc. Creatinine Clearance 84 mL/min (70-130); Carbon Dioxide 23 mmol/L (22-29); Chloride 111 mmol/L (98-107); Estimated GFR 83; Glucose 110 mg/dL (70-105); Sodium 142 mmol/L (136-145)
[2021-11-25 08:10] LABS: Lactic Acid 0.8 mmol/L (0.5-2.2)
[2021-11-25] MEDS: VANCOMYCIN 1.25 GM/250 ML BAG 1.25 GM in Premix Bag 1 BAG IVPB SCH ×2 (08:24→21:38)
[2021-11-25] MEDS: Famotidine/PF 20 mg/2ml Vial SLOW IVP SCH ×2 (08:24→21:38)
[2021-11-25] MEDS: Enoxaparin Sodium 40 MG/0.4 ML SYRINGE SC SCH (08:25)
[2021-11-25 12:00] LABS: Magnesium 1.5 mg/dL (1.6-2.6)
[2021-11-26] MEDS: Cefepime 2 GM in Sodium Chloride 0.9% 100 ML IVPB SCH ×2 (02:38→10:13)
[2021-11-26 05:05] LABS: #Eosinphils 0.4 thou/uL (0.0-0.7); #Lymphocytes 1.8 thou/uL (1.20-3.40); #Neutrophils 9.4 thou/uL (1.40-6.50); %Basophils 0.3 % (0.0-1.0); %Eosinophils 3.5 % (0.0-10.0); %Lymphocytes 14.1 % (21.0-51.0); %Monocytes 7.6 % (0.0-10.0); %Neutrophils 74.5 % (42.0-75.0); Hemoglobin 11.3 g/dL (14.0-18.0); Mean Corpuscular HGB CONC 32.5 g/dL (32.0-36.0); Mean Corpuscular Hemoglobin 29.2 pg (27.0-31.0); Mean Corpuscular Volume 89.9 fL (78.0-98.0); Mean Platelet Volume 8.5 fL (7.4-10.4); Platelet Count 208 thou/uL (130-400); Red Blood Cell (RBC) Count 3.88 mill/uL (4.70-6.10); White Blood Cell (WBC) Count 12.6 thou/uL (4.8-10.8)
[2021-11-26 06:31] LABS: ALT (SGPT) 14 U/L (8-55); AST (SGOT) 22 U/L (5-34); Albumin 3.3 g/dL (3.5-5.0); Alkaline Phosphatase 96 U/L (40-110); Anion Gap 13 mmol/L (10-20); BUN (Urea Nitrogen) 19 mg/dL (8.4-25.7); Bilirubin, Total 0.6 mg/dL (0.2-1.2); Calc. Creatinine Clearance 84 mL/min (70-130); Calcium 8.7 mg/dL (7.8-10.44); Carbon Dioxide 21 mmol/L (22-29); Chloride 110 mmol/L (98-107); Estimated GFR 83; Globulin 3.2 g/dL (2.4-3.5); Glucose 113 mg/dL (70-105); Potassium 3.6 mmol/L (3.5-5.1); Protein, Total 6.5 g/dL (6.0-8.3); Sodium 140 mmol/L (136-145)
[2021-11-26] MEDS ORDERED: Magnesium 2 GM/50 ML(in water) 2 GM in Premix Bag 1 BAG IVPB SCH (08:00)
[2021-11-26 08:08] LABS: Vancomycin, Trough 21.3 ug/mL
[2021-11-26] MEDS: Famotidine/PF 20 mg/2ml Vial SLOW IVP SCH (09:06)
[2021-11-26] MEDS: Enoxaparin Sodium 40 MG/0.4 ML SYRINGE SC SCH (09:06)
[2021-11-26] MEDS: VANCOMYCIN 1.25 GM/250 ML BAG 1.25 GM in Premix Bag 1 BAG IVPB SCH (09:15)
[2021-11-26 12:09] VITALS: BP 147/70; TEMP 98.3
[2021-11-26] MEDS ORDERED: Vancomycin 1 GM in Premix Bag 1 BAG IVPB SCH (20:00)
[2021-11-27] MEDS ORDERED: FLU VACC QS2022-23(6MOS UP)/PF 60 MCG/0.5 ML SYRINGE IM ONE (09:00)
== END 2021-11-26 14:20 | DRG 871 ==
LOC: ERS 14:15 → 2NO 17:30
PROVIDERS: ADMIT Hospitalist; ATTEND Internal Medicine
DX: A41.9 Sepsis, unspecified organism (principal); J69.0 Pneumonitis due to inhalation of food and vomit; J96.01 Acute respiratory failure with hypoxia; I69.352 Hemiplegia and hemiparesis following cerebral infarction affecting left dominant side; R65.20 Severe sepsis without septic shock; R13.12 Dysphagia, oropharyngeal phase; E11.9 Type 2 diabetes mellitus without complications; I10 Essential (primary) hypertension; E78.5 Hyperlipidemia, unspecified; N40.0 Benign prostatic hyperplasia without lower urinary tract symptoms; F32.A Depression, unspecified; Z20.822 Contact with and (suspected) exposure to COVID-19; F03.90 Unspecified dementia, unspecified severity, without behavioral disturbance, psychotic disturbance, mood disturbance, and anxiety; Z87.891 Personal history of nicotine dependence; I69.391 Dysphagia following cerebral infarction; I69.320 Aphasia following cerebral infarction; Z79.84 Long term (current) use of oral hypoglycemic drugs; Z79.899 Other long term (current) drug therapy
CPT/HCPCS: 36415; 36416; 71045; 80048; 80053; 80202; 83605; 83735; 84145; 85025; 87040; 87070; 87205; 87449; 87899; 93005; 94760; 96365; 96375; J0692; J1650; J1956; J3370; J3475; J3490; J7050; S0028; U0003; U0005